=== PATIENT | female | born 1995 | race Caucasian/White ===

== ENCOUNTER 2017-04-17 15:48 | Outpatient (CLI) | payer OTHER ==
[~2017-04-17] VITALS: Ht 154.9 cm; Wt 54.5 kg
[~2017-04-17 15:48] MED LIST: AC325T PO; DEXT10TA9 PO; DICY20TA57 PO; DOXY100C2 PO; INDO25CA PO; PREN1TAB86 PO
[2017-04-17 16:24] VITALS: BP 104/63
[2017-04-17] MEDS ORDERED: LACTATED RINGERS 1,000 ML IV SCH (16:30)
[2017-04-17 17:30] VITALS: BP 104/63
[2017-04-17] MEDS ORDERED: D5 LR IV SOLUTION 1,000 ML IV SCH (18:15)
[2017-04-17] MEDS ORDERED: ONDANSETRON 4 MG/2 ML (SDV) Z0FRAN IVP ONE (18:15)
[2017-04-17] MEDS ORDERED: diphenhydrAMINE 50 MG/ML INJ (BENADRYL) IVP ONE (18:15)
[2017-04-17] MEDS ORDERED: ONDANSETRON 4 MG/2 ML (SDV) Z0FRAN IV ONE (18:37)
[2017-04-17] MEDS ORDERED: diphenhydrAMINE 50 MG/ML INJ (BENADRYL) INJ ONE (18:37)
[2017-04-17 19:11] VITALS: BP 104/63
[2017-04-17 20:15] VITALS: BP 98/52
[2017-06-30] MEDS ORDERED: CEPH-507 PO (07:19)
== END 2017-04-17 22:45 | disposition home or self-care (01) ==
LOC: LDRP 15:48 → WSo 15:48 → SDC 15:48 → WSo 22:45 → SDC 22:45 → EDSTATUS 05-08 13:58
PROVIDERS: ATTEND Obstetrics & Gynecology Obstetrics
DX: O21.0 Mild hyperemesis gravidarum (principal)
CPT/HCPCS: 96361; 96374; 96375

== ENCOUNTER 2017-05-18 22:10 | Emergency (ER) | payer OTHER ==
--- OUTSIDE RECORDS SUMMARY | 2017-05-18 22:16 | XMS REPORT | Continuity of Care Document ---
Author Author [facility] Organization [facility] Address Unknown Phone Unavailable Allergies Active Description Code Type Severity Reaction Onset Reported/Identified Relationship to Patient Clinical Status Yes FOSPHENYTOIN FOSPHENYTOIN Drug Allergy Unknown ITCHING 04/01/2004 Yes fosphenytoin fosphenytoin Drug Allergy Unknown N/A 04/01/2004 Yes NO KNOW CONTRAST MEDIA ALLERGY NO KNOW CONTRAST MEDIA ALLERGY Drug Allergy Unknown N/A 2003 Yes No Known Contrast Allergies No Known Contrast Allergies Drug Allergy Unknown N/A 04/01/2004 Yes No Known Food Allergies No Known Food Allergies Drug Allergy Unknown N/A 04/01/2004 Yes NO KNOWN LATEX ALLERGY/SENSITI NO KNOWN LATEX ALLERGY/SENSITI Drug Allergy Unknown N/A 2003 Yes No Known Other Allergies No Known Other Allergies Drug Allergy Unknown N/A 04/01/2004 Yes phenytoin [id number] Drug Allergy Severe ANAPHYLAXIS 03/12/2014 Yes promethazine [id number] Drug Allergy Moderate N/A 03/12/2014 Medications Problems Date Dx Coded Attending Type Code Diagnosis Diagnosed By 03/12/2014 SIS FORMAN, NICOL [place] Ot 682.0 05/29/2014 NICOL ALEGRE MD Ot 789.01 02/25/2015 MARIYA EAST APRN Ot 625.3 DYSMENORRHEA 02/25/2015 MARIYA EAST APRN Ot 789.00 ABDOMINAL PAIN, UNSPECIFIED SITE 03/14/2015 ROMARIO ONOFRE MD Ot 719.46 03/14/2015 ROMARIO ONOFRE MD Ot V57.1 03/15/2015 ROMARIO ONOFRE MD Ot 719.46 03/15/2015 ROMARIO ONOFRE MD Ot V57.1 03/15/2015 ROMARIO ONOFRE MD Ot 719.46 03/15/2015 ROMARIO ONOFRE MD Ot V57.1 03/15/2015 ROMARIO ONOFRE MD Ot 719.46 03/15/2015 KINGSTON FORMAN, ROMARIO [place] Ot V57.1 03/15/2015 KINGSTON FORMAN, ROMARIO [place] Ot 719.46 03/15/2015 KINGSTON FORMAN, ROMARIO [place] Ot V57.1 03/15/2015 KINGSTON FORMAN, ROMARIO [place] Ot 719.46 03/15/2015 KINGSTON FORMAN, ROMARIO [place] Ot V57.1 03/16/2015 KINGSTON FORMAN, ROMARIO [place] Ot 719.46 03/16/2015 KINGSTON FORMAN, ROMARIO [place] Ot V57.1 03/16/2015 KINGSTON FORMAN, ROMARIO [place] Ot 719.46 03/16/2015 KINGSTON FORMAN, ROMARIO [place] Ot V57.1 04/04/2015 KINGSTON FORMAN, ROMARIO [place] Ot 719.46 JOINT PAIN-L/LEG 04/04/2015 KINGSTON FORMAN, ROMARIO [place] Ot V57.1 PHYSICAL THERAPY NEC 02/10/2016 DAVID BRONSON DO Ot B37.3 CANDIDIASIS OF VULVA AND VAGINA 02/10/2016 DAVID BRONSON DO Ot O23.592 INFECTION OTH PRT GENITL TRCT IN PREGNAN 02/10/2016 DAVID BRONSON DO Ot O60.02 LABOR WITHOUT DELIVERY, SECOND T 02/10/2016 DAVID BRONSON DO Ot Z3A.24 24 WEEKS GESTATION OF 06/19/2016 Annika FORMAN, [place] R56.9 UNSPECIFIED CONVULSIONS 06/20/2016 [place] MD R56.9 UNSPECIFIED CONVULSIONS 06/20/2016 [place] MD A R56.9 UNSPECIFIED CONVULSIONS Procedures Results Encounters ACCT No. Visit Date/Time Discharge Status Pt. Type Provider Facility Loc./Unit Complaint [id number] 04/17/2017 15:48:00 2016 22:45:00 DIS Outpatient OTHER, UNLISTED [facility] NAUSEA/VOMITING 10 WEEKS [id number] 02/09/2016 12:38:00 2015 13:29:00 DIS Inpatient DAVID BRONSON DO [facility] LDRP LABOR [id number] 03/19/2015 11:02:00 2014 12:20:00 DIS Outpatient KINGSTON FORMAN, ROMARIO [place] [facility] REHAB [id number] 02/25/2015 15:10:00 2014 16:37:00 DIS Emergency MARIYA EAST APRN [facility] ER ABD PAIN [id number] 05/29/2014 17:52:00 2013 19:35:00 DIS Emergency NICOL ALEGRE MD [facility] ER [id number] 03/11/2014 23:56:00 2013 00:35:00 DIS Emergency NICOL ALEGRE MD [facility] ER [id number] 06/20/2016 14:37:00 2015 14:37:00 DIS Outpatient Annika FORMAN, [place] [facility] EDIE
--- OUTSIDE RECORDS SUMMARY | 2017-05-18 22:16 | XMS REPORT | Continuity of Care Document ---
Author Author [facility] Address Unknown Phone Unavailable Support Name Relationship Address Phone MICHAEL CRUZ M.D. Caregiver [address] [place] [address] Unavailable MICHAEL CRUZ M.D. Caregiver [address] [place] [address] Unavailable YASMIN ALFORD Next Of Kin [address] [place] [address] Insurance Providers Guarantor Jaron Segovia Address [address] [place] [address] [facility] Policy Number [id number] Subscriber's Name Simon Segovia Relationship 03 Father Group Number [id number] Group Name [facility] Problems No problem information available. Medications Current Home Medications Medication Dose Units Route Directions Days Qty Instructions Start Date Vit W/ Ferrous Fumara () 1 Tab Tab 1 Tab Oral Daily 02/15/16 Social History No social history. Hospital Discharge Instructions Discharge Instructions Nursing Instructions Follow up Appointment #1 Call for Appointment: Yes Other Activity: Limit physical activity. Plan of Care Discharge Date 02/15/16 2:03am Disposition 01 HOME, SELF-CARE Instructions/Education Provided OBG Threatened Labor Prescriptions See Medication Section Care Plan and Goals See Discharge Instructions Section Functional Status No functional status results. Allergies, Adverse Reactions, Alerts No allergy information available. Immunizations No immunization records. Vital Signs Acute Vital Signs Vital Response Date/Time Blood Pressure 120/66 mm Hg 02/15/2016 12:22am Blood Pressure Mean 84 mm Hg 02/15/2016 12:22am Temperature (Fahrenheit) 98.2 degrees F (96.0 - 99.9) 02/15/2016 12:22am Temperature (Calculated Celsius) 36.54363 degrees C 02/15/2016 12:22am Temperature Source Oral 02/15/2016 12:22am Pulse Pulse Rate: ED 86 bpm 02/15/2016 12:22am Respiratory Rate 18 breaths per minute (10 - 20) 02/15/2016 12:22am Results Laboratory Results Test Name Result Units Flags Reference Collection Date/Time Result Date/ Time Comments Urine Color YELLOW 02/15/2016 12:50am 02/15/2016 1:35am Urine Appearance HAZY 02/15/2016 12:50am 02/15/2016 1:35am Urine Glucose (UA) NEGATIVE NEGATIVE 02/15/2016 12:50am 02/15/2016 1: 35am Urine Bilirubin NEGATIVE NEGATIVE 02/15/2016 12:50am 02/15/2016 1: 35am Urine Ketones NEGATIVE NEGATIVE 02/15/2016 12:50am 02/15/2016 1:35am Urine Specific [place] 1.010 1.005-1.030 02/15/2016 12:50am 2015 1:35am Urine Occult Blood NEGATIVE NEGATIVE 02/15/2016 12:50am 02/15/2016 1: 35am Urine pH 7.5 4.5-8.0 02/15/2016 12:50am 02/15/2016 1:35am Urine Protein NEGATIVE NEGATIVE 02/15/2016 12:50am 02/15/2016 1:35am Urine Urobilinogen 0.2 E.U./dL 0.2-1.0 02/15/2016 12:50am 02/15/2016 1: 35am Urine Nitrate NEGATIVE NEGATIVE 02/15/2016 12:50am 02/15/2016 1:35am Urine Leukocyte Esterase NEGATIVE NEGATIVE 02/15/2016 12:50am 2015 1:35am Urine RBC NONE /hpf NONE 02/15/2016 12:50am 02/15/2016 1:35am Urine WBC 1-3 /hpf NONE 02/15/2016 12:50am 02/15/2016 1:35am Urine Epithelial Cells MANY /lpf 02/15/2016 12:50am 02/15/2016 1: 35am Urine Bacteria 1+ /hpf H NONE 02/15/2016 12:50am 02/15/2016 1:35am Urine Amorphous Sediment 1+ 02/15/2016 12:50am 02/15/2016 1:35am Procedures No known history of procedures. Encounters Encounter Location Arrival/Admit Date Discharge/Depart Date Attending Provider Discharged Inpatient (obs) [facility] 02/15/16 12:26am 03/25 2:03am MICHAEL CRUZ M.D. Registered Referred [facility] L[facility] 05/23/13 1:39pm LA GRANADOS MD
[2017-05-18 23:44] VITALS: BP 0/0
== END 2017-05-18 23:30 | disposition home or self-care (01) ==
LOC: EDUNIT# 22:10 → ER 22:11
DX: O20.9 Hemorrhage in early pregnancy, unspecified (principal); Z3A.15 15 weeks gestation of pregnancy
CPT/HCPCS: 99281

== ENCOUNTER 2017-06-05 13:27 | Emergency (ER) | payer OTHER ==
[~2017-06-05] VITALS: Ht 154.9 cm; Wt 54.5 kg
[2017-06-05] MEDS ORDERED: NS IV 1000 ML 1,000 ML IV SCH (13:45)
[2017-06-05 13:56] LABS: BASOPHILS % (AUTO) 0 % (0-10); EOSINOPHILS # (AUTO) 0.1 10^3/uL (0.0-0.3); EOSINOPHILS % (AUTO) 1 % (0-10); LYMPHOCYTES # (AUTO) 1.8 X 10^3 (1.0-4.0); LYMPHOCYTES % (AUTO) 17 % (12-44); MEAN CORPUSCULAR HEMOGLOBIN 29 PG (25-34); MEAN CORPUSCULAR HGB CONC 34 G/DL (32-36); MEAN CORPUSCULAR VOLUME 85 FL (80-99); MEAN PLATELET VOLUME 9.2 FL (7.4-10.4); MONOCYTES # (AUTO) 0.8 X 10^3 (0.0-1.0); MONOCYTES % (AUTO) 8 % (0-12); NEUTROPHILS # (AUTO) 8.4 X 10^3 (1.8-7.8); NEUTROPHILS % (AUTO) 75 % (42-75); PLATELET COUNT 259 10^3/uL (130-400); RED BLOOD COUNT 3.85 10^6/uL (4.35-5.85); RED CELL DISTRIBUTION WIDTH 13.2 % (10.0-14.5); WHITE BLOOD COUNT 11.2 10^3/uL (4.3-11.0)
[2017-06-05 13:57] LABS: BILIRUBIN,URINE NEGATIVE (NEGATIVE); KETONES,URINE NEGATIVE (NEGATIVE); LEUKOCYTE ESTERASE ,URINE 3+ (NEGATIVE); NITRITE,URINE NEGATIVE (NEGATIVE); PH,URINE 6.5 (5-9); PROTEIN,URINE NEGATIVE (NEGATIVE); UROBILINOGEN,URINE NORMAL (NORMAL)
[2017-06-05 14:05] LABS: SQUAMOUS EPITHELIAL CELL,UR TNTC /HPF
[2017-06-05 14:11] LABS: INR 0.9 (0.8-1.4); PROTHROMBIN TIME PATIENT 12.7 SEC (12.2-14.7)
[2017-06-05 14:15] LABS: ALANINE AMINOTRANSFERASE 9 U/L (0-55); ALBUMIN 3.4 GM/DL (3.2-4.5); ANION GAP 6 MMOL/L (5-14); ASPARTATE AMINO TRANSFERASE 15 U/L (5-34); BILIRUBIN,TOTAL 0.3 MG/DL (0.1-1.0); BLOOD UREA NITROGEN 6 MG/DL (7-18); BUN/CREATININE RATIO 10; CALCIUM 8.5 MG/DL (8.5-10.1); CARBON DIOXIDE 22 MMOL/L (21-32); CHLORIDE 107 MMOL/L (98-107); CREATININE SERUM 0.59 MG/DL (0.60-1.30); GFR ESTIMATED > 60; GLUCOSE 101 MG/DL (70-105); MAGNESIUM 1.5 MG/DL (1.8-2.4); POTASSIUM 3.4 MMOL/L (3.6-5.0); SODIUM 135 MMOL/L (135-145); TOTAL PROTEIN 6.2 GM/DL (6.4-8.2)
[2017-06-05] MEDS ORDERED: hydrOXYzine (ATARAX) 10 MG TAB PO ONE (14:15)
[2017-06-05 14:22] LABS: MYOGLOBIN SERUM 16.3 NG/ML (10.0-92.0)
--- NOTE | 2017-06-05 15:55 | Diagnostic Imaging Report ---
INDICATION: Shortness of breath. EXAMINATION: Portable erect AP chest at 3:26 p.m. FINDINGS: The heart size is within normal limits and stable when compared to 07/09/09. The lungs are clear. There is no sign of pneumonia or a pleural effusion and there is no pneumothorax identified. The mediastinum is not widened. The osseous structures are intact. IMPRESSION: There is no evidence for active disease. Dictated by: Dictated on workstation # [id number]
--- NOTE | 2017-06-05 15:55 | ED Dyspnea ---
General Chief Complaint: Respiratory Problems Stated Complaint: sob/murmur/18 WKS Nursing Triage Note: States that she has been having soa since yesrday. has not been ill. states her chest feels like there is helium in it. yesterday she was able to feel better with water . is 18 weeks Source of Information: Patient, Family Exam Limitations: No Limitations History of Present Illness Time Seen by Provider: 13:30 Initial Comments This 21-year-old white female in her 18th week presents with palpitations and shortness of breath. The patient states that she has had a life long heart murmur that has not required intervention. She states that she suffers from chronic depression and anxiety. She states that she is not taking her Zoloft currently and is not using medication specifically for anxiety. The patient's first was made notable by having gestational diabetes. She is under the care of Dr. Winters. Her previous ultrasounds in the office of the have been unremarkable. The patient denies pelvic contractions or vaginal bleeding. Allergies and Home Medications Allergies Coded Allergies: phenytoin (Unverified Allergy, Severe, ANAPHYLAXIS, 03/12/14) promethazine (Unverified Allergy, Intermediate, 03/12/14) Home Medications Vit W-Ca,Fe,FA(<1 mg) 1 Each Tablet, 1 EACH PO DAILY, (Reported) Constitutional: No chills, No fever EENTM: No hearing loss Respiratory: No cough, short of breath Cardiovascular: No chest pain, palpitations Gastrointestinal: No abdominal pain, No nausea, No vomiting Musculoskeletal: no symptoms reported Skin: no symptoms reported Psychiatric/Neurological: No Symptoms Reported Endocrine: No Symptoms Reported Hematologic/Lymphatic: No Symptoms Reported Past Odvusze-Gsxgej-Brduii Hx Patient Social History Alcohol Use: Denies Use Recreational Drug Use: No Smoking Status: Never a Smoker 2nd Hand Smoke Exposure: No Recent Foreign Travel: No Contact w/Someone Who Travel: No Recent Infectious Disease Expo: No Recent Hopitalizations: No Physical Abuse: No Sexual Abuse: No Mistreated: No Fear: No Immunizations Up To Date Tetanus Booster (TDap): Less than 5yrs Seasonal Allergies Seasonal Allergies: No Surgeries History of Surgeries: Yes Surgeries: Adenoidectomy, Gallbladder, Tonsillectomy Respiratory History of Respiratory Disorde: No Cardiovascular History of Cardiac Disorders: Yes Cardiac Disorders: Palpitations Neurological History of Neurological Disord: Yes (HX SEIZURES as child) Reproductive System Hx Reproductive Disorders: No Sexually Transmitted Disease: No HIV/AIDS: No Gastrointestinal History of Gastrointestinal Di: Yes Gastrointestinal Disorders: Gall Bladder Disease Musculoskeletal History of Musculoskeletal Dis: No Endocrine History of Endocrine Disorders: No Cancer History of Cancer: No Psychosocial History of Psychiatric Problem: Yes Behavioral Health Disorders: ADD/ADHD, Anxiety, Depression Suicide Risk Score: 0 Integumentary History of Skin or Integumenta: No Blood Transfusions History of Blood Disorders: No Reviewed Nursing Assessment Reviewed/Agree w Nursing PMH: Yes Physical Exam Vital Signs Vital Sign - Last 12Hours 06/05/17 13:37 Temp 96.6 Pulse 78 Resp 22 B/P (MAP) 123/63 Pulse Ox 99 Capillary Refill : Less Than 3 Seconds General Appearance: WD/WN, Anxious HEENT: TMs Normal Neck: Normal Inspection Respiratory: Lungs Clear, Normal Breath Sounds Cardiovascular: Regular Rate, Rhythm, No Edema, No Gallop Gastrointestinal: Normal Bowel Sounds, Other (patient's uterus is consistent with her dates with the fundus at the umbilicus.) Neurologic/Psychiatric: Alert, Oriented x3, No Motor/Sensory Deficits, Normal Mood/Affect Skin: Normal Color, Warm/Dry Progress/Results/Core Measures Results/Orders Lab Results Laboratory Tests Test 06/05/17 13:45 06/05/17 13:46 Range/Units Hemoglobin A1c 5.1 4.5-6.2 % White Blood Count 11.2 H 4.3-11.0 10^3/uL Red Blood Count 3.85 L 4.35-5.85 10^6/uL Hemoglobin 11.2 L 11.5-16.0 G/DL Hematocrit 33 L 35-52 % Mean Corpuscular Volume 85 80-99 FL Mean Corpuscular Hemoglobin 29 25-34 PG Mean Corpuscular Hemoglobin Concent 34 32-36 G/DL Red Cell Distribution Width 13.2 10.0-14.5 % Platelet Count 259 130-400 10^3/uL Mean Platelet Volume 9.2 7.4-10.4 FL Neutrophils (%) (Auto) 75 42-75 % Lymphocytes (%) (Auto) 17 12-44 % Monocytes (%) (Auto) 8 0-12 % Eosinophils (%) (Auto) 1 0-10 % Basophils (%) (Auto) 0 0-10 % Neutrophils # (Auto) 8.4 H 1.8-7.8 X 10^3 Lymphocytes # (Auto) 1.8 1.0-4.0 X 10^3 Monocytes # (Auto) 0.8 0.0-1.0 X 10^3 Eosinophils # (Auto) 0.1 0.0-0.3 10^3/uL Basophils # (Auto) 0.0 0.0-0.1 10^3/uL Prothrombin Time 12.7 12.2-14.7 SEC INR Comment 0.9 0.8-1.4 Activated Partial Thromboplast Time 26 24-35 SEC Urine Color YELLOW Urine Clarity SLIGHTLY CLOUDY Urine pH 6.5 5-9 Urine Specific [place] 1.020 1.016-1.022 Urine Protein NEGATIVE NEGATIVE Urine Glucose (UA) NEGATIVE NEGATIVE Urine Ketones NEGATIVE NEGATIVE Urine Nitrite NEGATIVE NEGATIVE Urine Bilirubin NEGATIVE NEGATIVE Urine Urobilinogen NORMAL NORMAL MG/DL Urine Leukocyte Esterase 3+ H NEGATIVE Urine RBC (Auto) 1+ H NEGATIVE Urine RBC 0-2 /HPF Urine WBC 5-10 H /HPF Urine Squamous Epithelial Cells TNTC H /HPF Urine Crystals NONE /LPF Urine Bacteria FEW H /HPF Urine Casts NONE /LPF Urine Mucus NEGATIVE /LPF Urine Culture Indicated NO Sodium Level 135 135-145 MMOL/L Potassium Level 3.4 L 3.6-5.0 MMOL/L Chloride Level 107 98-107 MMOL/L Carbon Dioxide Level 22 21-32 MMOL/L Anion Gap 6 5-14 MMOL/L Blood Urea Nitrogen 6 L 7-18 MG/DL Creatinine 0.59 L 0.60-1.30 MG/DL Estimat Glomerular Filtration Rate > 60 BUN/Creatinine Ratio 10 Glucose Level 101 70-105 MG/DL Calcium Level 8.5 8.5-10.1 MG/DL Magnesium Level 1.5 L 1.8-2.4 MG/DL Total Bilirubin 0.3 0.1-1.0 MG/DL Aspartate Amino Transf (AST/SGOT) 15 5-34 U/L Alanine Aminotransferase (ALT/SGPT) 9 0-55 U/L Alkaline Phosphatase 60 40-136 U/L Myoglobin 16.3 10.0-92.0 NG/ML Troponin I < 0.30 <0.30 NG/ML Total Protein 6.2 L 6.4-8.2 GM/DL Albumin 3.4 3.2-4.5 GM/DL My Orders Orders - JOCY AGRAWAL MD Cbc With Automated Diff (06/05/17 13:41) Magnesium (06/05/17 13:41) Chest 1 View, Ap/Pa Only (06/05/17 13:41) Ekg Tracing (06/05/17 13:41) Cardiac Profile 1 (06/05/17 13:41) Comprehensive Metabolic Panel (06/05/17 13:41) Myoglobin Serum (06/05/17 13:41) Protime With Inr (06/05/17 13:41) Partial Thromboplastin Time (06/05/17 13:41) Lipid Panel (06/06/17 06:00) Saline Lock/Iv-Start (06/05/17 13:41) Ns Iv 1000 Ml (Sodium Chloride 0.9%) (06/05/17 13:45) Ua Culture If Indicated (06/05/17 13:41) Heart Tones (06/05/17 13:50) Hemoglobin A1c (06/05/17 13:53) Hydroxyzine Oral (Atarax Tablet) (06/05/17 14:15) Medications Given in ED Current Medications Medications Dose Ordered Sig/Brice Route Start Time Stop Time Status Last Admin Dose Admin Hydroxyzine HCl 10 mg ONCE ONCE PO 06/05/17 14:15 06/05/17 14:16 DC 06/05/17 14:28 10 MG Vital Signs/I&O Vital Sign - Last 12Hours 06/05/17 13:37 Temp 96.6 Pulse 78 Resp 22 B/P (MAP) 123/63 Pulse Ox 99 Intake and Output 06/06/17 00:00 Intake Total 1000 ml Balance 1000 ml Blood Pressure Mean: 83 Progress Note : Time: 16:15 Progress Note The patient's anxiety was significantly improved with Atarax which was suggested by her diagnostic radiologist, Dr. Winters. The patient's EKG, shielded single view chest x-ray, and laboratory evaluation was essentially unremarkable. Patient's potassium and magnesium were both slightly low. Next A bedside abdominal ultrasound demonstrated a viable intrauterine . A quick review of the hearts with the ultrasound demonstrated a normal-sized heart without evidence of pericardial fluid and functional valves on exam. I reassured the patient's. I recommend she follow up with Dr. Lafleur, cardiology. I returned to the care of her registered phlebotomist part time, Dr. Winters. Departure Impression Impression: Primary Impression: Palpitations Additional Impressions: Intrauterine Anxiety Disposition: HOME, SELF-CARE Condition: Improved Departure-Patient Inst. Decision time for Depature: 16:19 Referrals: GEOFF WINTERS MD (PCP) Primary Care Physician [facility] (Family) Primary Care Physician DANIELA LAFLEUR MD Patient Instructions: Anxiety, Child (DC) Add. Discharge Instructions: Atarax for anxiety. Follow-up with cardiology. Follow-up with OB. Return if any problems or questions. All discharge instructions reviewed with patient and /or family. Voiced understanding. JOCY AGRAWAL MD Jun 05, 2017 15:55
[2017-06-05 16:28] VITALS: BP 109/58
== END 2017-06-05 16:28 | disposition home or self-care (01) ==
LOC: EDUNIT# 13:27 → ER 13:30
DX: O99.342 Other mental disorders complicating pregnancy, second trimester (principal); F41.9 Anxiety disorder, unspecified; F32.9 Major depressive disorder, single episode, unspecified; F90.9 Attention-deficit hyperactivity disorder, unspecified type; Z87.448 Personal history of other diseases of urinary system; Z90.89 Acquired absence of other organs; Z3A.18 18 weeks gestation of pregnancy
CPT/HCPCS: 36415; 71010; 80053; 81000; 83036; 83735; 83874; 84484; 85025; 85610; 85730; 93005

== ENCOUNTER 2017-08-24 11:50 | Outpatient (CLI) | payer OTHER ==
[~2017-08-24 11:50] MED LIST changes: +CEPH-507 PO
== END 2017-08-24 12:30 | disposition home or self-care (01) ==
LOC: WSo 11:50
PROVIDERS: ATTEND Obstetrics & Gynecology
DX: Z31.82 Encounter for Rh incompatibility status (principal)
CPT/HCPCS: 96372

== ENCOUNTER 2017-09-22 16:55 | Outpatient (CLI) | payer OTHER ==
[~2017-09-22] VITALS: Ht 152.4 cm; Wt 68.5 kg
[2017-09-22 17:02] VITALS: BP 119/69
[2017-09-22 17:32] VITALS: BP 117/60
[2017-09-22 18:02] VITALS: BP 122/64
[2017-09-22 18:38] LABS: BASOPHILS % (AUTO) 0 % (0-10); EOSINOPHILS # (AUTO) 0.2 10^3/uL (0.0-0.3); EOSINOPHILS % (AUTO) 1 % (0-10); HEMATOCRIT 30 % (35-52); HEMOGLOBIN 9.9 G/DL (11.5-16.0); LYMPHOCYTES # (AUTO) 1.9 X 10^3 (1.0-4.0); LYMPHOCYTES % (AUTO) 13 % (12-44); MEAN CORPUSCULAR HEMOGLOBIN 28 PG (25-34); MEAN CORPUSCULAR HGB CONC 33 G/DL (32-36); MEAN CORPUSCULAR VOLUME 83 FL (80-99); MEAN PLATELET VOLUME 9.4 FL (7.4-10.4); MONOCYTES # (AUTO) 1.8 X 10^3 (0.0-1.0); MONOCYTES % (AUTO) 12 % (0-12); NEUTROPHILS # (AUTO) 10.6 X 10^3 (1.8-7.8); NEUTROPHILS % (AUTO) 73 % (42-75); PLATELET COUNT 256 10^3/uL (130-400); RED BLOOD COUNT 3.58 10^6/uL (4.35-5.85); RED CELL DISTRIBUTION WIDTH 12.4 % (10.0-14.5); WHITE BLOOD COUNT 14.5 10^3/uL (4.3-11.0)
[2017-09-22 18:56] LABS: BAND NEUTROPHILS 1 %; BASOPHILS % (MANUAL) 0 %; EOSINOPHILS % (MANUAL) 1 %; HYPOCHROMASIA SLIGHT; LYMPHOCYTES % (MANUAL) 22 %; MONOCYTES % (MANUAL) 5 %; NEUTROPHILS % (MANUAL) 71 %
[2017-09-22 19:10] VITALS: BP 122/64
--- NOTE | 2017-09-24 09:11 | Physician Query-Final Dx ---
DILLON SIMENTAL 09/24/17 0911: Clinic Account Progress/Dx Physician Query: Please give diagnosis Date of Service Sep 22, 2017 at 16:55 GEOFF CANNON MD 09/24/17 1723: Clinic Account Progress/Dx DIAGNOSIS: Diagnosis false labor DILLON SIMENTAL Sep 24, 2017 09:11 GEOFF CANNON MD Sep 24, 2017 17:23
== END 2017-09-22 19:10 | disposition home or self-care (01) ==
LOC: WSo 16:55 → LDRP 16:56 → WSo 19:10
PROVIDERS: ATTEND Obstetrics & Gynecology
DX: O47.03 False labor before 37 completed weeks of gestation, third trimester (principal); Z3A.32 32 weeks gestation of pregnancy
CPT/HCPCS: 36415; 85007; 85027; 99214

== ENCOUNTER 2017-09-25 20:41 | Outpatient (CLI) | payer OTHER ==
[~2017-09-25] VITALS: Ht 152.4 cm; Wt 69.9 kg
[2017-09-25 20:59] LABS: BILIRUBIN,URINE NEGATIVE (NEGATIVE); CLARITY,URINE CLEAR; COLOR,URINE YELLOW; GLUCOSE, URINE (UA) NEGATIVE (NEGATIVE); KETONES,URINE NEGATIVE (NEGATIVE); LEUKOCYTE ESTERASE ,URINE 3+ (NEGATIVE); NITRITE,URINE NEGATIVE (NEGATIVE); PH,URINE 7 (5-9); PROTEIN,URINE NEGATIVE (NEGATIVE); UROBILINOGEN,URINE NORMAL (NORMAL)
[2017-09-25 21:00] VITALS: BP 124/59
[2017-09-25 21:06] LABS: BACTERIA,URINE TRACE /HPF
[2017-09-25] MEDS ORDERED: D5 LR IV SOLUTION 1,000 ML IV ONE (21:14)
[2017-09-25 21:30] VITALS: BP 123/59
[2017-09-25] MEDS ORDERED: D5 LR IV SOLUTION 1,000 ML IV SCH (21:30)
[2017-09-25 21:43] LABS: BILIRUBIN,URINE NEGATIVE (NEGATIVE); CLARITY,URINE CLEAR; COLOR,URINE YELLOW; GLUCOSE, URINE (UA) NEGATIVE (NEGATIVE); KETONES,URINE NEGATIVE (NEGATIVE); LEUKOCYTE ESTERASE ,URINE NEGATIVE (NEGATIVE); NITRITE,URINE NEGATIVE (NEGATIVE); PH,URINE 7 (5-9); PROTEIN,URINE NEGATIVE (NEGATIVE); UROBILINOGEN,URINE NORMAL (NORMAL)
[2017-09-25 21:53] LABS: BACTERIA,URINE NEGATIVE /HPF; SQUAMOUS EPITHELIAL CELL,UR 0-2 /HPF; WBC,URINE RARE /HPF
[2017-09-25 22:00] VITALS: BP 117/66
[2017-09-25 22:30] VITALS: BP 123/62
[2017-09-25 22:36] VITALS: BP 117/56
--- NOTE | 2017-09-28 15:42 | Physician Query-Final Dx ---
DILLON SIMENTAL 09/28/17 1542: Clinic Account Progress/Dx Physician Query: Please give diagnosis Date of Service Sep 25, 2017 at 20:41 GEOFF CANNON MD 09/30/17 0611: Clinic Account Progress/Dx DIAGNOSIS: Diagnosis False labor DILLON SIMENTAL Sep 28, 2017 15:42 GEOFF CANNON MD Sep 30, 2017 06:11
[2017-10-01] MEDS ORDERED: NITR-65 PO ×2 (07:54)
[2017-10-01] MEDS ORDERED: ONDA8TAB9 PO (07:54)
== END 2017-09-25 22:50 | disposition home or self-care (01) ==
LOC: WSo 20:41 → LDRP 20:41 → WSo 22:50
PROVIDERS: ATTEND Obstetrics & Gynecology
DX: O47.03 False labor before 37 completed weeks of gestation, third trimester (principal); Z3A.33 33 weeks gestation of pregnancy
CPT/HCPCS: 81000; 87088; 96360; 99214

== ENCOUNTER 2017-09-30 16:25 | Observation (INO) | payer OTHER ==
[~2017-09-30] VITALS: Ht 152.4 cm; Wt 68.5 kg
[2017-09-30 16:40] VITALS: BP 118/71
[2017-09-30] MEDS ORDERED: ONDANSETRON 4 MG/2 ML (SDV) Z0FRAN ONE (17:04)
[2017-09-30] MEDS ORDERED: D5 LR IV SOLUTION 1,000 ML IV ONE (17:15)
[2017-09-30] MEDS ORDERED: ONDANSETRON 4 MG/2 ML (SDV) Z0FRAN IVP ONE (17:15)
[2017-09-30 17:35] LABS: BILIRUBIN,URINE NEGATIVE (NEGATIVE); CLARITY,URINE CLEAR; COLOR,URINE YELLOW; GLUCOSE, URINE (UA) NEGATIVE (NEGATIVE); KETONES,URINE 3+ (NEGATIVE); LEUKOCYTE ESTERASE ,URINE 1+ (NEGATIVE); NITRITE,URINE NEGATIVE (NEGATIVE); PH,URINE 6.5 (5-9); PROTEIN,URINE 2+ (NEGATIVE); UROBILINOGEN,URINE NORMAL (NORMAL)
[2017-09-30 17:40] VITALS: BP 110/55
[2017-09-30 17:43] LABS: BACTERIA,URINE FEW /HPF
[2017-09-30] MEDS ORDERED: INFLUENZA TRIvalent 2017-2018 0.5 ML/45 MCG SYR IM ONE (18:30)
[2017-09-30] MEDS ORDERED: NS (IVPB) 50 ML ONE (19:20)
[2017-09-30] MEDS ORDERED: ceFAZolin 1,000 MG (ANCEF) VIAL ONE (19:20)
[2017-09-30] MEDS: D5 LR IV SOLUTION 1,000 ML IV SCH (19:26)
[2017-09-30] MEDS: ceFAZolin INJECTION 1,000 MG in NS (IVPB) 50 ML IV SCH (19:26)
[2017-09-30 19:30] VITALS: BP 115/59
[2017-09-30] MEDS ORDERED: BUTORPHANOL INJ 2 MG/ML (STADOL) VIAL IV ONE (19:30)
[2017-09-30] MEDS ORDERED: CATHETER FLUSH 10 ML SYR IV PRN (19:30)
--- OUTSIDE RECORDS SUMMARY | 2017-09-30 19:38 | XMS REPORT | Continuity of Care Document ---
Author Author [facility] Organization [facility] Address Unknown Phone Unavailable Allergies Active Description Code Type Severity Reaction Onset Reported/Identified Relationship to Patient Clinical Status Yes FOSPHENYTOIN FOSPHENYTOIN Drug Allergy Unknown ITCHING 04/01/2004 Yes fosphenytoin fosphenytoin Drug Allergy Unknown N/A 04/01/2004 Yes NO KNOW CONTRAST MEDIA ALLERGY NO KNOW CONTRAST MEDIA ALLERGY Drug Allergy Unknown N/A 04/01/2004 Yes No Known Contrast Allergies No Known Contrast Allergies Drug Allergy Unknown N/A 04/01/2004 Yes No Known Food Allergies No Known Food Allergies Drug Allergy Unknown N/A Yes NO KNOWN LATEX ALLERGY/SENSITI NO KNOWN LATEX ALLERGY /SENSITI Drug Allergy Unknown N/A 04/01/2004 Yes No Known Other Allergies No Known Other Allergies Drug Allergy Unknown N/A 04/01/2004 Yes phenytoin [id number] Drug Allergy Severe ANAPHYLAXIS 03/12/2014 Yes promethazine [id number] Drug Allergy Moderate N/A 03/12/2014 Medications There is no data. Problems Date Dx Coded Attending Type Code Diagnosis Diagnosed By 03/12/2014 SIS FROMAN, NICOL Kimball Ot 682.0 05/29/2014 SIS FORMAN, NICOL Kimball Ot 789.01 02/25/2015 MARIYA EAST [employer]PL[employer] NAVIGATOR Ot 625.3 DYSMENORRHEA 02/25/2015 MARIYA E[employer] NAVIGATOR Ot 789.00 ABDOMINAL PAIN, UNSPECIFIED SITE 03/14/2015 ROMARIO ONOFRE MD Ot 719.46 03/14/2015 ROMARIO ONOFRE MD Ot V57.1 03/15/2015 ROMARIO ONOFRE MD Ot 719.46 03/15/2015 ROMARIO ONOFRE MD Ot V57.1 03/15/2015 ROMARIO ONOFRE MD Ot 719.46 03/15/2015 ROMARIO ONOFRE MD Ot V57.1 03/15/2015 ROMARIO ONOFRE MD N Ot 719.46 03/15/2015 KINGSTON FORMAN, ROMARIO [place] Ot V57.1 03/15/2015 KINGSTON FORMAN, ROMARIO [place] Ot 719.46 03/15/2015 KINGSTON FORMAN, ROMARIO [place] Ot V57.1 03/15/2015 KINGSTON FORMAN, ROMARIO [place] Ot 719.46 03/15/2015 KINGSTON FORMAN, ROMARIO [place] Ot V57.1 03/16/2015 KINGSTON FORMAN, ROMARIO [place] Ot 719.46 03/16/2015 KINGSTON FORMAN, ROMARIO [place] Ot V57.1 03/16/2015 KINGSTON FORMAN, ROMARIO [place] Ot 719.46 03/16/2015 KINGSTON FORMAN, ROMARIO [place] Ot V57.1 04/04/2015 KINGSTON FORMAN, ROMARIO [place] Ot 719.46 JOINT PAIN-L/LEG 04/04/2015 KINGSTON FROMAN, ROMARIO [place] Ot V57.1 PHYSICAL THERAPY NEC 02/10/2016 AUDIE JEWELL DAVID Arana Ot B37.3 CANDIDIASIS OF VULVA AND VAGINA 02/10/2016 AUDIE JEWELL DAVID Arana Ot O23.592 INFECTION OTH PRT GENITL TRCT IN PREGNAN 02/10/2016 DAVID BRONSON DO Ot O60.02 LABOR WITHOUT DELIVERY, SECOND T 02/10/2016 DAVID BRONSON DO Ot Z3A.24 24 WEEKS GESTATION OF 06/19/2016 Annika FORMAN, [place] U A R56.9 UNSPECIFIED CONVULSIONS 06/20/2016 Annika FORMAN, [place] U A R56.9 UNSPECIFIED CONVULSIONS 06/20/2016 [place] Rob[place] MD U A R56.9 UNSPECIFIED CONVULSIONS 04/17/2017 SARATH FORMAN, RUSLAN Ham Ot O21.0 MILD HYPEREMESIS GRAVIDARUM 05/08/2017 RUSLAN CLEMENS MD Ot O21.0 MILD HYPEREMESIS GRAVIDARUM 05/08/2017 RUSLAN CLEMENS MD Ot O21.0 MILD HYPEREMESIS GRAVIDARUM 05/14/2017 SARATH FORMAN, RUSLAN Ham Ot O21.0 MILD HYPEREMESIS GRAVIDARUM 05/18/2017 TERE FORMAN, JODIE Martinez Ot O20.9 HEMORRHAGE IN EARLY , UNSPECIFI 05/18/2017 JODIE CARRANZA MD Ot Z3A.15 15 WEEKS GESTATION OF 05/24/2017 JODIE CARRANZA MD Ot O20.9 HEMORRHAGE IN EARLY , UNSPECIFI 05/24/2017 JODIE CARRANZA MD Ot Z3A.15 15 WEEKS GESTATION OF 06/30/2017 GEOFF CANNON MD, Ot O26.892 OTH RELATED CONDITIONS, SECOND 06/30/2017 GEOFF CANNON MD, Ot R10.31 RIGHT LOWER QUADRANT PAIN 06/30/2017 GEOFF CANNON MD, Ot Z3A.20 20 WEEKS GESTATION OF 06/30/2017 GEOFF CANNON MD, Ot Z84.2 FAMILY HISTORY OF OTHER DISEASES OF THE 06/30/2017 GEOFF CANNON MD, Ot O26.892 OTRay RELATED CONDITIONS, SECOND 06/30/2017 GEOFF CANONN MD, Ot R10.31 RIGHT LOWER QUADRANT PAIN 06/30/2017 GEOFF CANNON MD, Ot Z3A.20 20 WEEKS GESTATION OF 06/30/2017 GEOFF CANNON MD, Ot Z84.2 FAMILY HISTORY OF OTHER DISEASES OF THE Procedures There is no data. Results Test Result Range Hemoglobin A1c - 06/05/17 13:45 Hemoglobin A1c 5.1 % 4.5-6.2 Complete blood count (CBC) with automated white blood cell (WBC) differential - 06/05/17 13:46 Blood leukocytes automated count (number/volume) 11.2 10*3/uL 4.3-11.0 Blood erythrocytes automated count (number/volume) 3.85 10*6/uL 4.35-5.85 Venous blood hemoglobin measurement (mass/volume) 11.2 g/dL 11.5-16.0 Blood hematocrit (volume fraction) 33 % 35-52 Automated erythrocyte mean corpuscular volume 85 [foz_us] 80-99 Automated erythrocyte mean corpuscular hemoglobin (mass per erythrocyte) 29 pg 25-34 Automated erythrocyte mean corpuscular hemoglobin concentration measurement ( mass/volume) 34 g/dL 32-36 Automated erythrocyte distribution width ratio 13.2 % 10.0-14.5 Automated blood platelet count (count/volume) 259 10*3/uL 130-400 Automated blood platelet mean volume measurement 9.2 [foz_us] 7.4-10.4 Automated blood neutrophils/100 leukocytes 75 % 42-75 Automated blood lymphocytes/100 leukocytes 17 % 12-44 Blood monocytes/100 leukocytes 8 % 0-12 Automated blood eosinophils/100 leukocytes 1 % 0-10 Automated blood basophils/100 leukocytes 0 % 0-10 Blood neutrophils automated count (number/volume) 8.4 10*3 1.8-7.8 Blood lymphocytes automated count (number/volume) 1.8 10*3 1.0-4.0 Blood monocytes automated count (number/volume) 0.8 10*3 0.0-1.0 Automated eosinophil count 0.1 10*3/uL 0.0-0.3 Automated blood basophil count (count/volume) 0.0 10*3/uL 0.0-0.1 Complete urinalysis with reflex to culture - 06/05/17 13:46 Urine color determination YELLOW NRG Urine clarity determination SLIGHTLY CLOUDY NRG Urine pH measurement by test strip 6.5 5-9 Specific gravity of urine by test strip 1.020 1.016- 1.022 Urine protein assay by test strip, semi-quantitative NEGATIVE NEGATIVE Urine glucose detection by automated test strip NEGATIVE NEGATIVE Erythrocytes detection in urine sediment by light microscopy 1+ NEGATIVE Urine ketones detection by automated test strip NEGATIVE NEGATIVE Urine nitrite detection by test strip NEGATIVE NEGATIVE Urine total bilirubin detection by test strip NEGATIVE NEGATIVE Urine urobilinogen measurement by automated test strip (mass/volume) NORMAL NORMAL Urine leukocyte esterase detection by dipstick 3+ NEGATIVE Automated urine sediment erythrocyte count by microscopy (number/high power field) [HPF] NRG Automated urine sediment leukocyte count by microscopy (number/high power field ) [HPF] NRG Bacteria detection in urine sediment by light microscopy FEW NRG Squamous epithelial cells detection in urine sediment by light microscopy TNTC NRG Crystals detection in urine sediment by light microscopy NONE NRG Casts detection in urine sediment by light microscopy NONE NRG Mucus detection in urine sediment by light microscopy NEGATIVE NRG Complete urinalysis with reflex to culture NO NRG PT panel in platelet poor plasma by coagulation assay - 06/05/17 13:46 Prothrombin time (PT) in platelet poor plasma by coagulation assay 12.7 s 12.2-14.7 INR in platelet poor plasma or blood by coagulation assay 0.9 0.8-1.4 Activated partial thromboplastin time (aPTT) in platelet poor plasma bycoagulation assay - 06/05/17 13:46 Activated partial thromboplastin time (aPTT) in platelet poor plasma bycoagulation assay 26 s 24-35 Comprehensive metabolic panel - 06/05/17 13:46 Serum or plasma sodium measurement (moles/volume) 135 mmol/L 135-145 Serum or plasma potassium measurement (moles/volume) 3.4 mmol/L 3.6-5.0 Serum or plasma chloride measurement (moles/volume) 107 mmol/L 98-107 Carbon dioxide 22 mmol/L 21-32 Serum or plasma anion gap determination (moles/volume) 6 mmol/L 5-14 Serum or plasma urea nitrogen measurement (mass/volume) 6 mg/dL 7-18 Serum or plasma creatinine measurement (mass/volume) 0.59 mg/dL 0.60-1.30 Serum or plasma urea nitrogen/creatinine mass ratio 10 NRG Serum or plasma creatinine measurement with calculation of estimated glomerular filtration rate > NRG Serum or plasma glucose measurement (mass/volume) 101 mg/dL 70-105 Serum or plasma calcium measurement (mass/volume) 8.5 mg/dL 8.5-10.1 Serum or plasma total bilirubin measurement (mass/volume) 0.3 mg/dL 0.1-1.0 Serum or plasma alkaline phosphatase measurement (enzymatic activity/volume) 60 U/L 40-136 Serum or plasma aspartate aminotransferase measurement (enzymatic activity/ volume) 15 U/L 5-34 Serum or plasma alanine aminotransferase measurement (enzymatic activity/volume ) 9 U/L 0-55 Serum or plasma protein measurement (mass/volume) 6.2 g/dL 6.4-8.2 Serum or plasma albumin measurement (mass/volume) 3.4 g/dL 3.2-4.5 Magnesium - 06/05/17 13:46 Magnesium 1.5 mg/dL 1.8-2.4 Serum or plasma troponin i.cardiac measurement (mass/volume) - 06/05/17 13:46 Serum or plasma troponin i.cardiac measurement (mass/volume) < ng/ mL <0.30 Myoglobin, serum - 06/05/17 13:46 Myoglobin, serum 16.3 ng/mL 10.0-92.0 Urine drug screening test - 06/28/17 19:45 Urine phencyclidine detection by screening method NEGATIVE NEGATIVE Urine benzodiazepines detection by screening method NEGATIVE NEGATIVE Urine cocaine detection NEGATIVE NEGATIVE Urine amphetamines detection by screening method NEGATIVE NEGATIVE Urine methamphetamine detection by screening method NEGATIVE NEGATIVE Urine cannabinoids detection by screening method NEGATIVE NEGATIVE Urine opiates detection by screening method NEGATIVE NEGATIVE Urine barbiturates detection NEGATIVE NEGATIVE Screening urine tricyclic antidepressants detection NEGATIVE NEGATIVE Urine methadone detection by screening method NEGATIVE NEGATIVE Urine oxycodone detection NEGATIVE NEGATIVE Urine propoxyphene detection NEGATIVE NEGATIVE Complete urinalysis with reflex to culture - 06/28/17 19:45 Urine color determination YELLOW NRG Urine clarity determination VERY CLOUDY NRG Urine pH measurement by test strip 7 5-9 Specific gravity of urine by test strip 1.020 1.016- 1.022 Urine protein assay by test strip, semi-quantitative 1+ NEGATIVE Urine glucose detection by automated test strip NEGATIVE NEGATIVE Erythrocytes detection in urine sediment by light microscopy 5+ NEGATIVE Urine ketones detection by automated test strip NEGATIVE NEGATIVE Urine nitrite detection by test strip NEGATIVE NEGATIVE Urine total bilirubin detection by test strip NEGATIVE NEGATIVE Urine urobilinogen measurement by automated test strip (mass/volume) NORMAL NORMAL Urine leukocyte esterase detection by dipstick 3+ NEGATIVE Automated urine sediment erythrocyte count by microscopy (number/high power field) > [HPF] NRG Automated urine sediment leukocyte count by microscopy (number/high power field ) [HPF] NRG Bacteria detection in urine sediment by light microscopy TRACE NRG Squamous epithelial cells detection in urine sediment by light microscopy >50 NRG Crystals detection in urine sediment by light microscopy NONE NRG Casts detection in urine sediment by light microscopy NONE NRG Mucus detection in urine sediment by light microscopy SMALL NRG Complete urinalysis with reflex to culture NO NRG Renal epithelial cells detection in urine sediment by light microscopy NONE NRG Bacterial urine culture - 06/28/17 19:45 Bacterial urine culture [id number] NRG COLONY COUNT <10,000 NRG Complete blood count (CBC) with automated white blood cell (WBC) differential - 06/28/17 20:44 Blood leukocytes automated count (number/volume) 15.7 10*3/uL 4.3-11.0 Blood erythrocytes automated count (number/volume) 3.85 10*6/uL 4.35-5.85 Venous blood hemoglobin measurement (mass/volume) 11.4 g/dL 11.5-16.0 Blood hematocrit (volume fraction) 33 % 35-52 Automated erythrocyte mean corpuscular volume 84 [[facility]_us] 80-99 Automated erythrocyte mean corpuscular hemoglobin (mass per erythrocyte) 30 pg 25-34 Automated erythrocyte mean corpuscular hemoglobin concentration measurement ( mass/volume) 35 g/dL 32-36 Automated erythrocyte distribution width ratio 12.8 % 10.0-14.5 Automated blood platelet count (count/volume) 268 10*3/uL 130-400 Automated blood platelet mean volume measurement 9.0 [fo_us] 7.4-10.4 Automated blood neutrophils/100 leukocytes 85 % 42-75 Automated blood lymphocytes/100 leukocytes 9 % 12-44 Blood monocytes/100 leukocytes 5 % 0-12 Automated blood eosinophils/100 leukocytes 1 % 0-10 Automated blood basophils/100 leukocytes 0 % 0-10 Blood neutrophils automated count (number/volume) 13.3 10*3 1.8-7.8 Blood lymphocytes automated count (number/volume) 1.4 10*3 1.0-4.0 Blood monocytes automated count (number/volume) 0.8 10*3 0.0-1.0 Automated eosinophil count 0.1 10*3/uL 0.0-0.3 Automated blood basophil count (count/volume) 0.0 10*3/uL 0.0-0.1 Blood manual differential performed detection - 06/28/17 20:44 Blood monocytes/100 leukocytes 9 % NRG Manual blood segmented neutrophils/100 leukocytes 75 % NRG Blood band neutrophils/100 leukocytes 5 % NRG Manual blood lymphocytes/100 leukocytes 9 % NRG Manual eosinophils/100 leukocytes in nose 1 % NRG Manual blood basophils/100 leukocytes 0 % NRG Blood lymphocytes variant/100 leukocytes 1 % NRG Blood ovalocytes detection by light microscopy SLIGHT NRG Blood toxic granules detection by light microscopy 1+ NRG Blood poikilocytosis detection by light microscopy SLIGHT NRG Comprehensive metabolic panel - 06/28/17 20:44 Serum or plasma sodium measurement (moles/volume) 138 mmol/L 135-145 Serum or plasma potassium measurement (moles/volume) 3.2 mmol/L 3.6-5.0 Serum or plasma chloride measurement (moles/volume) 106 mmol/L 98-107 Carbon dioxide 20 mmol/L 21-32 Serum or plasma anion gap determination (moles/volume) 12 mmol/L 5-14 Serum or plasma urea nitrogen measurement (mass/volume) 8 mg/dL 7-18 Serum or plasma creatinine measurement (mass/volume) 0.71 mg/dL 0.60-1.30 Serum or plasma urea nitrogen/creatinine mass ratio 11 NRG Serum or plasma creatinine measurement with calculation of estimated glomerular filtration rate > NRG Serum or plasma glucose measurement (mass/volume) 92 mg/dL 70-105 Serum or plasma calcium measurement (mass/volume) 8.6 mg/dL 8.5-10.1 Serum or plasma total bilirubin measurement (mass/volume) 0.3 mg/dL 0.1-1.0 Serum or plasma alkaline phosphatase measurement (enzymatic activity/volume) 57 U/L 40-136 Serum or plasma aspartate aminotransferase measurement (enzymatic activity/ volume) 18 U/L 5-34 Serum or plasma alanine aminotransferase measurement (enzymatic activity/volume ) 20 U/L 0-55 Serum or plasma protein measurement (mass/volume) 6.6 g/dL 6.4-8.2 Serum or plasma albumin measurement (mass/volume) 3.4 g/dL 3.2-4.5 [id number] - 06/28/17 21:35 [id number] SPECIMEN AVAILABLE [facility] Complete blood count (CBC) with automated white blood cell (WBC) differential - 06/29/17 05:15 Blood leukocytes automated count (number/volume) 14.0 10*3/uL 4.3-11.0 Blood erythrocytes automated count (number/volume) 3.42 10*6/uL 4.35-5.85 Venous blood hemoglobin measurement (mass/volume) 10.1 g/dL 11.5-16.0 Blood hematocrit (volume fraction) 29 % 35-52 Automated erythrocyte mean corpuscular volume 85 [foz_us] 80-99 Automated erythrocyte mean corpuscular hemoglobin (mass per erythrocyte) 30 pg 25-34 Automated erythrocyte mean corpuscular hemoglobin concentration measurement ( mass/volume) 35 g/dL 32-36 Automated erythrocyte distribution width ratio 12.7 % 10.0-14.5 Automated blood platelet count (count/volume) 260 10*3/uL 130-400 Automated blood platelet mean volume measurement 8.9 [foz_us] 7.4-10.4 Automated blood neutrophils/100 leukocytes 80 % 42-75 Automated blood lymphocytes/100 leukocytes 12 % 12-44 Blood monocytes/100 leukocytes 8 % 0-12 Automated blood eosinophils/100 leukocytes 0 % 0-10 Automated blood basophils/100 leukocytes 0 % 0-10 Blood neutrophils automated count (number/volume) 11.2 10*3 1.8-7.8 Blood lymphocytes automated count (number/volume) 1.6 10*3 1.0-4.0 Blood monocytes automated count (number/volume) 1.1 10*3 0.0-1.0 Automated eosinophil count 0.0 10*3/uL 0.0-0.3 Automated blood basophil count (count/volume) 0.0 10*3/uL 0.0-0.1 Complete blood count (CBC) with automated white blood cell (WBC) differential - 06/30/17 05:15 Blood leukocytes automated count (number/volume) 8.3 10*3/uL 4.3-11.0 Blood erythrocytes automated count (number/volume) 3.37 10*6/uL 4.35-5.85 Venous blood hemoglobin measurement (mass/volume) 9.9 g/dL 11.5-16.0 Blood hematocrit (volume fraction) 29 % 35-52 Automated erythrocyte mean corpuscular volume 86 [foz_us] 80-99 Automated erythrocyte mean corpuscular hemoglobin (mass per erythrocyte) 29 pg 25-34 Automated erythrocyte mean corpuscular hemoglobin concentration measurement ( mass/volume) 34 g/dL 32-36 Automated erythrocyte distribution width ratio 12.7 % 10.0-14.5 Automated blood platelet count (count/volume) 248 10*3/uL 130-400 Automated blood platelet mean volume measurement 8.9 [foz_us] 7.4-10.4 Automated blood neutrophils/100 leukocytes 68 % 42-75 Automated blood lymphocytes/100 leukocytes 21 % 12-44 Blood monocytes/100 leukocytes 9 % 0-12 Automated blood eosinophils/100 leukocytes 2 % 0-10 Automated blood basophils/100 leukocytes 0 % 0-10 Blood neutrophils automated count (number/volume) 5.7 10*3 1.8-7.8 Blood lymphocytes automated count (number/volume) 1.8 10*3 1.0-4.0 Blood monocytes automated count (number/volume) 0.7 10*3 0.0-1.0 Automated eosinophil count 0.2 10*3/uL 0.0-0.3 Automated blood basophil count (count/volume) 0.0 10*3/uL 0.0-0.1 RH IMMUNE GLOBULIN RHOPHYLAC - 08/24/17 12:10 RH IMMUNE GLOBULIN RHOPHYLAC PRSMD [id number] 08/24/17 1222 NRG Transfusion band number - 08/24/17 12:10 Transfusion band number [id number] NRG [id number] - 08/24/17 12:10 [id number] 300ug NRG Lot number - 08/24/17 12:10 Lot number [id number] NRG cell screen - 08/24/17 12:10 cell screen 03/12/19 NRG Encounters ACCT No. Visit Date/Time Discharge Status Pt. Type Provider Facility Loc./Unit Complaint [id number] 08/24/2017 11:50:00 08/24/2017 12:30:00 DIS Outpatient GEOFF CANNON MD [facility] WSo Z31.82 [id number] 06/28/2017 19:34:00 06/30/2017 07:19:00 DIS Inpatient GEOFF CANNON MD [facility] LDRP ABDOMINAL PAIN [id number] 06/05/2017 13:30:00 06/05/2017 16:28:00 DIS Emergency JOCY AGRAWAL MD [facility] ER sob/murmur/18 WKS [id number] 05/18/2017 22:11:00 05/18/2017 23:30:00 DIS Emergency JODIE CARRANZA MD [facility] ER 15 WKS PREG/VAG BLEEDING [id number] 04/17/2017 15:48:00 04/17/2017 22:45:00 DIS Outpatient RUSLAN CLEMENS MD [facility] WSo NAUSEA/VOMITING 10 WEEKS [id number] 02/09/2016 12:38:00 02/10/2016 13:29:00 DIS Inpatient DAVID BRONSON DO [facility] LDRP LABOR [id number] 03/19/2015 11:02:00 04/04/2015 12:20:00 DIS Outpatient ROMARIO ONOFRE MD [facility] REHAB [id number] 02/25/2015 15:10:00 02/25/2015 16:37:00 DIS Emergency MARIYA EAST APRN [facility] ER ABD PAIN [id number] 05/29/2014 17:52:00 05/29/2014 19:35:00 DIS Emergency NICOL ALEGRE MD [facility] ER [id number] 03/11/2014 23:56:00 03/12/2014 00:35:00 DIS Emergency NICOL ALEGRE MD [facility] ER [id number] 06/20/2016 14:37:00 06/20/2016 14:37:00 DIS Outpatient Annika FORMAN, [facility]
[2017-09-30 20:45] VITALS: BP 117/60
[2017-09-30] MEDS ORDERED: BETAMETHASONE ACE/NA PHOS 6 MG/ML (CELESTONE SOLUSPAN) IM SCH (21:00)
[2017-09-30 23:35] VITALS: BP 130/58
[2017-10-01] MEDS: ceFAZolin INJECTION 1,000 MG in NS (IVPB) 50 ML IV SCH ×2 (01:40→08:12)
[2017-10-01] MEDS: D5 LR IV SOLUTION 1,000 ML IV SCH (03:58)
[2017-10-01 04:00] VITALS: BP 110/54
[2017-10-01] MEDS ORDERED: NITR-65 PO ×2 (07:54)
[2017-10-01] MEDS ORDERED: ONDA8TAB9 PO (07:54)
--- NOTE | 2017-10-01 07:55 | Discharge Instructions ---
Discharge Instructions Discharge Medications New, Converted or Re-Newed RX: RX on Chart Patient Instructions Patient Instructions: As directed [facility] to [facility] For: As instructed Activity & Diet Discharge Diet: No Restrictions Activity as Tolerated: Yes Orders-Post D/C & Referrals Return to clinic next week as scheduled for R Please call in rx to patient pharmacy Patient is to take Macrobid 100 mg twice a day for 7 days and then 100 mg once a day for the duration of her GEOFF CANNON MD Oct 01, 2017 7:55 am
--- NOTE | 2017-10-01 07:59 | History & Physical ---
History and Physical Date Seen by Provider: Oct 01, 2017 Time Seen by Provider: 07:56 This patient is a 27-year-old white female who presented last evening with contractions pain nausea and vomiting. She was found to have a urinary tract infection. She was started on appropriate antibiotics. She was treated with IV fluids and IV antiemetics. She is symptomatically improved this morning nausea is resolved. Cramps have resolved. She was karyn some on admission and her cervix made minimal change that after hydration and her contractions resolved and her cervix has remained stable she denies rupture membranes or bleeding. Denies chest pain shortness of breath. Allergies are to Phenergan and Dilantin Medications are Zoloft and Zofran and vitamins Medical social and surgical histories are per the Department record HEENT exam is normal Neck supple no lymphadenopathy or thyromegaly Abdomen gravid soft nontender nondistended Extremities show no clubbing cyanosis. Homans sign. Pelvic exam is per the admitting nurse which showed minimal changes last night stable exam since then Monitor shows rare contractions with a normal heart rate pattern Laboratory Tests Test 09/30/17 15:25 Range/Units Urine Color YELLOW Urine Clarity CLEAR Urine pH 6.5 5-9 Urine Specific Welch 1.020 1.016-1.022 Urine Protein 2+ H NEGATIVE Urine Glucose (UA) NEGATIVE NEGATIVE Urine Ketones 3+ H NEGATIVE Urine Nitrite NEGATIVE NEGATIVE Urine Bilirubin NEGATIVE NEGATIVE Urine Urobilinogen NORMAL NORMAL MG/DL Urine Leukocyte Esterase 1+ H NEGATIVE Urine RBC (Auto) NEGATIVE NEGATIVE Urine RBC NONE /HPF Urine WBC 5-10 H /HPF Urine Squamous Epithelial Cells 10-25 H /HPF Urine Crystals NONE /LPF Urine Bacteria FEW H /HPF Urine Casts NONE /LPF Urine Mucus LARGE H /LPF Urine Culture Indicated YES Urine culture is pending. Vital Signs Date Time Temp Pulse Resp B/P (MAP) Pulse Ox O2 Delivery O2 Flow Rate FiO2 10/01/17 04:00 97.2 86 110/54 (72) 09/30/17 23:35 99.5 84 130/58 (82) 09/30/17 20:45 106 117/60 (79) 09/30/17 20:20 98.9 09/30/17 19:30 99.7 94 115/59 (77) 09/30/17 18:10 98.1 09/30/17 17:40 110/55 (73) 09/30/17 16:40 97.7 94 20 118/71 (87) I & O 10/01/17 06:59 Intake Total 1100 ml Balance 1100 ml As stable. Patient . Assessment and plan 33 week gestation patient with labor that has now resolved. She has been given a single dose of betamethasone and that will be repeated she was found to have a urinary tract infection was started [place] at the [facility] twice a day for 7 days and then once daily for the duration of her . She was given return precautions and instructions to follow up in clinic as scheduled. Allergies and Home Medications Allergies Coded Allergies: phenytoin (Unverified Allergy, Severe, ANAPHYLAXIS, 03/12/14) promethazine (Unverified Allergy, Intermediate, 03/12/14) Home Medications Nitrofurantoin Monohyd/M-Cryst 100 Mg Capsule, 1 TAB PO BID, #14 Prescribed by: GEOFF ELLSWORTH on 10/01/17 0754 Nitrofurantoin Monohyd/M-Cryst 100 Mg Capsule, 1 TAB PO DAILY for 40 Days, #40 Prescribed by: GEOFF ELLSWORTH on 10/01/17 0754 Ondansetron 8 Mg Tab.rapdis, 8 MG PO Q6H PRN for nausea, #20 Prescribed by: GEOFF ELLSWORTH on 10/01/17 0754 Vit W-Ca,Fe,FA(<1 mg) 1 Each Tablet, 1 EACH PO DAILY, (Reported) EGOFF CANNON MD Oct 01, 2017 7:59 am
--- NOTE | 2017-10-01 08:13 | Progress Note-Standard ---
Standard Progress Note Progress Notes/Assess & Plan Date Seen by Provider: Oct 01, 2017 Time Seen by Provider: 08:13 Final Diagnosis UTI in at 33 weeks gestation GEOFF CANNON MD Oct 01, 2017 8:13 am
[2017-10-01 08:15] VITALS: BP 112/57
--- OUTSIDE RECORDS SUMMARY | 2017-10-02 14:11 | XMS REPORT | Continuity of Care Document ---
Author Author [facility] Organization [facility] Address Unknown Phone Unavailable Allergies Active Description [...] Drug Allergy Unknown N/A 04/01/2004 Yes phenytoin [id number] Drug Allergy Severe ANAPHYLAXIS 03/12/2014 Yes promethazine [id number] Drug Allergy Moderate N/A 03/12/2014 Medications There is no data. Problems Date Dx Coded Attending Type Code Diagnosis Diagnosed By 03/12/2014 SIS FORMAN, NICOL Kimball Ot 682.0 05/29/2014 SIS FORMAN, NICOL Kimball Ot 789.01 02/25/2015 MARIYA EAST TREAD BUILDER Ot 625.3 DYSMENORRHEA 02/25/2015 MARIYA E[employer] TREAD BUILDER Ot 789.00 ABDOMINAL PAIN, UNSPECIFIED SITE 03/14/2015 [...] O26.892 OTRay RELATED CONDITIONS, SECOND 06/30/2017 GEOFF CANNON MD, [...] culture - 06/28/17 19:45 Bacterial urine culture [id number] NRG COLONY COUNT <10,000 NRG Complete blood count (CBC) with automated white blood cell (WBC) differential - 06/28/17 20:44 Blood leukocytes automated count (number/volume) 15.7 10*3/uL 4.3-11.0 Blood erythrocytes automated count (number/volume) 3.85 10*6/uL 4.35-5.85 Venous blood hemoglobin measurement (mass/volume) 11.4 g/dL 11.5-16.0 Blood hematocrit (volume fraction) 33 % 35-52 Automated erythrocyte mean corpuscular volume 84 [[facility]] 80-99 Automated erythrocyte mean corpuscular hemoglobin (mass [...] plasma albumin measurement (mass/volume) 3.4 g/dL 3.2-4.5 [id number] - 06/28/17 21:35 [id number] SPECIMEN AVAILABLE [facility] Complete blood count (CBC) with automated white [...] number - 08/24/17 12:10 Transfusion band number [id number] NRG [id number] - 08/24/17 12:10 [id number] 1 300ug NRG Lot number - 08/24/17 12:10 Lot number [id number] NRG cell screen - 08/24/17 12:10 cell screen 03/12/19 NRG Complete blood count (CBC) with automated white blood cell (WBC) differential - 09/22/17 18:29 Blood leukocytes automated count (number/volume) 14.5 10*3/uL 4.3-11.0 Blood erythrocytes automated count (number/volume) 3.58 10*6/uL 4.35-5.85 Venous blood hemoglobin measurement (mass/volume) 9.9 g/dL 11.5-16.0 Blood hematocrit (volume fraction) 30 % 35-52 Automated erythrocyte mean corpuscular volume 83 [[facility]] 80-99 Automated erythrocyte mean corpuscular hemoglobin (mass per erythrocyte) 28 pg 25-34 Automated erythrocyte mean corpuscular hemoglobin concentration measurement ( mass/volume) 33 g/dL 32-36 Automated erythrocyte distribution width ratio 12.4 % 10.0-14.5 Automated blood platelet count (count/volume) 256 10*3/uL 130-400 Automated blood platelet mean volume measurement 9.4 [[facility]_us] 7.4-10.4 Automated blood neutrophils/100 leukocytes 73 % 42-75 Automated blood lymphocytes/100 leukocytes 13 % 12-44 Blood monocytes/100 leukocytes 12 % 0-12 Automated blood eosinophils/100 leukocytes 1 % 0-10 Automated blood basophils/100 leukocytes 0 % 0-10 Blood neutrophils automated count (number/volume) 10.6 10*3 1.8-7.8 Blood lymphocytes automated count (number/volume) 1.9 10*3 1.0-4.0 Blood monocytes automated count (number/volume) 1.8 10*3 0.0-1.0 Automated eosinophil count 0.2 10*3/uL 0.0-0.3 Automated blood basophil count (count/volume) 0.0 10*3/uL 0.0-0.1 Blood manual differential performed detection - 09/22/17 18:29 Blood monocytes/100 leukocytes 5 % NRG Manual blood segmented neutrophils/100 leukocytes 71 % NRG Blood band neutrophils/100 leukocytes 1 % NRG Manual blood lymphocytes/100 leukocytes 22 % NRG Manual eosinophils/100 leukocytes in nose 1 % NRG Manual blood basophils/100 leukocytes 0 % NRG Blood hypochromia detection by light microscopy SLIGHT NRG Complete urinalysis with reflex to culture - 09/25/17 20:45 Urine color determination YELLOW NRG Urine clarity determination CLEAR NRG Urine pH measurement by test strip 7 5-9 Specific gravity of urine by test strip 1.005 1.016- 1.022 Urine protein assay by test strip, semi-quantitative NEGATIVE NEGATIVE Urine glucose detection by automated test strip NEGATIVE NEGATIVE Erythrocytes detection in urine sediment by light microscopy NEGATIVE NEGATIVE Urine ketones detection by automated test strip NEGATIVE NEGATIVE Urine nitrite detection by test strip NEGATIVE NEGATIVE Urine total bilirubin detection by test strip NEGATIVE NEGATIVE Urine urobilinogen measurement by automated test strip (mass/volume) NORMAL NORMAL Urine leukocyte esterase detection by dipstick 3+ NEGATIVE Automated urine sediment erythrocyte count by microscopy (number/high power field) NONE NRG Automated urine sediment leukocyte count by microscopy (number/high power field ) [HPF] NRG Bacteria detection in urine sediment by light microscopy TRACE NRG Squamous epithelial cells detection in urine sediment by light microscopy 10-25 NRG Crystals detection in urine sediment by light microscopy NONE NRG Casts detection in urine sediment by light microscopy NONE NRG Mucus detection in urine sediment by light microscopy NEGATIVE NRG Complete urinalysis with reflex to culture YES NRG Bacterial urine culture - 09/25/17 20:45 Bacterial urine culture [id number] NRG COLONY COUNT <10,000 NRG Complete urinalysis with reflex to culture - 09/25/17 21:30 Urine color determination YELLOW NRG Urine clarity determination CLEAR NRG Urine pH measurement by test strip 7 5-9 Specific gravity of urine by test strip 1.005 1.016- 1.022 Urine protein assay by test strip, semi-quantitative NEGATIVE NEGATIVE Urine glucose detection by automated test strip NEGATIVE NEGATIVE Erythrocytes detection in urine sediment by light microscopy NEGATIVE NEGATIVE Urine ketones detection by automated test strip NEGATIVE NEGATIVE Urine nitrite detection by test strip NEGATIVE NEGATIVE Urine total bilirubin detection by test strip NEGATIVE NEGATIVE Urine urobilinogen measurement by automated test strip (mass/volume) NORMAL NORMAL Urine leukocyte esterase detection by dipstick NEGATIVE NEGATIVE Automated urine sediment erythrocyte count by microscopy (number/high power field) NONE NRG Automated urine sediment leukocyte count by microscopy (number/high power field ) RARE NRG Bacteria detection in urine sediment by light microscopy NEGATIVE NRG Squamous epithelial cells detection in urine sediment by light microscopy 0-2 NRG Crystals detection in urine sediment by light microscopy NONE NRG Casts detection in urine sediment by light microscopy NONE NRG Mucus detection in urine sediment by light microscopy NEGATIVE NRG Complete urinalysis with reflex to culture NO NRG Complete urinalysis with reflex to culture - 09/30/17 15:25 Urine color determination YELLOW NRG Urine clarity determination CLEAR NRG Urine pH measurement by test strip 6.5 5-9 Specific gravity of urine by test strip 1.020 1.016- 1.022 Urine protein assay by test strip, semi-quantitative 2+ NEGATIVE Urine glucose detection by automated test strip NEGATIVE NEGATIVE Erythrocytes detection in urine sediment by light microscopy NEGATIVE NEGATIVE Urine ketones detection by automated test strip 3+ NEGATIVE Urine nitrite detection by test strip NEGATIVE NEGATIVE Urine total bilirubin detection by test strip NEGATIVE NEGATIVE Urine urobilinogen measurement by automated test strip (mass/volume) NORMAL NORMAL Urine leukocyte esterase detection by dipstick 1+ NEGATIVE Automated urine sediment erythrocyte count by microscopy (number/high power field) NONE NRG Automated urine sediment leukocyte count by microscopy (number/high power field ) [HPF] NRG Bacteria detection in urine sediment by light microscopy FEW NRG Squamous epithelial cells detection in urine sediment by light microscopy 10-25 NRG Crystals detection in urine sediment by light microscopy NONE NRG Casts detection in urine sediment by light microscopy NONE NRG Mucus detection in urine sediment by light microscopy LARGE NRG Complete urinalysis with reflex to culture YES NRG Bacterial urine culture - 09/30/17 15:25 Bacterial urine culture NG NRG Encounters ACCT No. Visit Date/Time Discharge Status Pt. Type Provider Facility Loc./Unit Complaint [id number] 08/24/2017 11:50:00 08/24/2017 12:30:00 DIS Outpatient DAVIS FORMAN, [facility]OFF [facility] Z[facility] [id number] 06/28/2017 19:34:00 06/30/2017 07:19:00 DIS Inpatient DAVIS FORMAN, GEOFF Vaughan [facility] LDRP ABDOMINAL PAIN [id number] 06/05/2017 13:30:00 06/05/2017 16:28:00 DIS Emergency NGHIA FORMAN, JOCY S [facility] ER sob/murmur/18 WKS [id number] 05/18/2017 22:11:00 05/18/2017 23:30:00 DIS Emergency TERE FORMAN, JODIE Martinez [facility] ER 15 WKS PREG/VAG BLEEDING [id number] 04/17/2017 15:48:00 04/17/2017 22:45:00 DIS Outpatient SARATH FORMAN, RUSLAN Ham [facility] WSo NAUSEA/VOMITING 10 WEEKS [id number] 02/09/2016 12:38:00 02/10/2016 13:29:00 DIS Inpatient FENECH DO, DAVID S [facility] LDRP LABOR [id number] 03/19/2015 11:02:00 04/04/2015 12:20:00 DIS Outpatient KINGSTON FORMAN, ROMARIO [place] [facility] REHAB [id number] 02/25/2015 15:10:00 02/25/2015 16:37:00 DIS Emergency MARIYA EAST TREAD BUILDER [facility] ER ABD PAIN [id number] 05/29/2014 17:52:00 05/29/2014 19:35:00 DIS Emergency NICOL ALEGRE MD [facility] ER [id number] 03/11/2014 23:56:00 03/12/2014 00:35:00 DIS Emergency NICOL ALEGRE MD [facility] ER [id number] 10/01/2017 08:15:00 Document Registration [id number] 09/25/2017 21:06:00 Document Registration [id number] 09/22/2017 18:41:00 Document Registration [id number] 06/20/2016 14:37:00 06/20/2016 14:37:00 DIS Outpatient Annika FORMAN, [place] [facility] EDIE
== END 2017-10-01 07:54 | disposition home or self-care (01) ==
LOC: WSo 16:25 → LDRP 16:25 → UNDOADMOB 19:16 → WSo 19:16 → LDRP 19:16 → UNDODISOB 10-01 10:05 → EDSTATUS 10-02 14:05
PROVIDERS: ADMIT Obstetrics & Gynecology; ATTEND Obstetrics & Gynecology
DX: O60.03 Preterm labor without delivery, third trimester (principal); O23.93 Unspecified genitourinary tract infection in pregnancy, third trimester; Z3A.33 33 weeks gestation of pregnancy
CPT/HCPCS: 81000; 87088; 96361; 96372; 96374; 96375; 96376; 99211; G0378

== ENCOUNTER 2017-10-01 17:41 | Outpatient (CLI) | payer OTHER ==
[~2017-10-01 17:41] MED LIST changes: +NITR-65 PO; +ONDA8TAB9 PO
[2017-10-01] MEDS ORDERED: BETAMETHASONE ACE/NA PHOS 6 MG/ML (CELESTONE SOLUSPAN) IM SCH (18:00)
--- NOTE | 2017-10-02 11:24 | Physician Query-Final Dx ---
DILLON SIMENTAL 10/02/17 1124: Clinic Account Progress/Dx Physician Query: Please give a diagnosis for the Betamethasone treatment thank you Date of Service Oct 01, 2017 at 17:41 GEOFF CANNON MD 10/05/17 1215: Clinic Account Progress/Dx DIAGNOSIS: Diagnosis labor DILLON SIMENTAL Oct 02, 2017 11:24 GEOFF CANNON MD Oct 05, 2017 12:15
== END 2017-10-01 18:25 | disposition home or self-care (01) ==
LOC: WSo 17:41
PROVIDERS: ATTEND Obstetrics & Gynecology
DX: O60.00 Preterm labor without delivery, unspecified trimester (principal)
CPT/HCPCS: 96372

== ENCOUNTER 2017-10-03 14:51 | Outpatient (CLI) | payer OTHER ==
[~2017-10-03] VITALS: Ht 152.4 cm; Wt 70.3 kg
[2017-10-03 15:00] VITALS: BP 118/63
[2017-10-03 15:20] VITALS: BP 115/62
[2017-10-03] MEDS ORDERED: FLUC200T PO (15:39)
[2017-10-03] MEDS ORDERED: INFLUENZA TRIvalent 2017-2018 0.5 ML/45 MCG SYR IM ONE (15:45)
--- NOTE | 2017-10-05 15:26 | Physician Query-Final Dx ---
DILLON SIMENTAL 10/05/17 1526: Clinic Account Progress/Dx Physician Query: Please give diagnosis Date of Service Oct 03, 2017 at 14:51 GEOFF CANNON MD 10/06/17 1255: Clinic Account Progress/Dx DIAGNOSIS: Diagnosis false labor DILLON SIMENTAL Oct 05, 2017 15:26 GEOFF CANNON MD Oct 06, 2017 12:55
== END 2017-10-03 15:40 | disposition home or self-care (01) ==
LOC: WSo 14:51 → LDRP 14:52 → WSo 15:40
PROVIDERS: ATTEND Obstetrics & Gynecology
DX: O47.03 False labor before 37 completed weeks of gestation, third trimester (principal); Z3A.33 33 weeks gestation of pregnancy
CPT/HCPCS: 99213

== ENCOUNTER 2017-10-09 19:28 | Inpatient (IN) | payer OTHER ==
[~2017-10-09] VITALS: Ht 152.4 cm; Wt 69.4 kg
[2017-10-09] VITALS (10 sets, daily range): BP systolic 112–141; BP diastolic 58–81
[~2017-10-09 19:28] MED LIST changes: +FLUC200T PO
[2017-10-09] MEDS ORDERED: AMPICILLIN 2000 MG INJECTION (IM/IV) ONE (19:55)
[2017-10-09] MEDS ORDERED: D5 LR IV SOLUTION 1,000 ML IV ONE (19:55)
[2017-10-09] MEDS ORDERED: NS (IVPB) 100 ML ONE (19:56)
[2017-10-09] MEDS: D5 LR IV SOLUTION 1,000 ML IV SCH (20:05)
[2017-10-09] MEDS ORDERED: AMPICILLIN INJECTION 2,000 MG in NS (IVPB) 100 ML IV SCH (20:18)
[2017-10-09 21:23] LABS: BASOPHILS % (AUTO) 0 % (0-10); EOSINOPHILS # (AUTO) 0.1 10^3/uL (0.0-0.3); EOSINOPHILS % (AUTO) 1 % (0-10); HEMATOCRIT 28 % (35-52); HEMOGLOBIN 9.6 G/DL (11.5-16.0); LYMPHOCYTES # (AUTO) 2.4 X 10^3 (1.0-4.0); LYMPHOCYTES % (AUTO) 19 % (12-44); MEAN CORPUSCULAR HEMOGLOBIN 27 PG (25-34); MEAN CORPUSCULAR HGB CONC 34 G/DL (32-36); MEAN CORPUSCULAR VOLUME 81 FL (80-99); MONOCYTES # (AUTO) 1.2 X 10^3 (0.0-1.0); MONOCYTES % (AUTO) 9 % (0-12); NEUTROPHILS # (AUTO) 9.4 X 10^3 (1.8-7.8); NEUTROPHILS % (AUTO) 72 % (42-75); PLATELET COUNT 299 10^3/uL (130-400); RED BLOOD COUNT 3.51 10^6/uL (4.35-5.85); RED CELL DISTRIBUTION WIDTH 12.4 % (10.0-14.5); WHITE BLOOD COUNT 13.1 10^3/uL (4.3-11.0)
[2017-10-09] MEDS ORDERED: OXYTOCIN/NORMAL SALINE 500 ML IV SCH ×2 (21:53→21:57)
[2017-10-09] MEDS ORDERED: D5 LR IV SOLUTION 1,000 ML IV SCH (21:53)
[2017-10-09] MEDS ORDERED: MEASLES,MUMPS,RUBELLA 1 EA INJ SC ONE (22:00)
[2017-10-09] MEDS ORDERED: TETANUS,DIPTH,PERTUSS P/F (BOOSTRIX) 0.5 ML VIAL IM ONE (22:00)
[2017-10-09] MEDS ORDERED: ONDANSETRON 4 MG/2 ML (SDV) Z0FRAN IVP PRN (22:00)
[2017-10-09] MEDS ORDERED: oxyCODONE/APAP 10/325MG (PERCOCET 10) TABLET PO PRN (22:00)
[2017-10-09] MEDS ORDERED: BENZOCAINE/MENTHOL (DERMOPLAST) 56 ML CAN TP PRN (22:00)
--- NOTE | 2017-10-09 22:04 | History & Physical ---
History and Physical Date Seen by Provider: Oct 09, 2017 Time Seen by Provider: 21:59 This patient is a 22-year-old white female currently at 35+ weeks gestation presenting with complaint of rupture membranes spontaneously at 7 p.m. today. She reports a large gush of clear fluid. She was grossly ruptured on admission. She denies bleeding. She has only occasional contraction but those are increasing in frequency and intensity since her arrival. Patient's history is significant for GBS positive. She has been started on prophylactic antibiotics. Allergies are to phenytoin and promethazine Medications are vitamins Medical social and surgical histories are per the antepartum record HEENT exam is normal Neck is supple no lymphadenopathy no thyromegaly Abdomen is gravid soft nontender nondistended Streaming show clubbing cyanosis. There is no Homans sign. Pelvic exam per the presenting nurse shows a cervix that is 3 cm dilated gross rupture vertex presentation high station Laboratory Tests Test 10/09/17 21:12 Range/Units White Blood Count 13.1 H 4.3-11.0 10^3/uL Red Blood Count 3.51 L 4.35-5.85 10^6/uL Hemoglobin 9.6 L 11.5-16.0 G/DL Hematocrit 28 L 35-52 % Mean Corpuscular Volume 81 80-99 FL Mean Corpuscular Hemoglobin 27 25-34 PG Mean Corpuscular Hemoglobin Concent 34 32-36 G/DL Red Cell Distribution Width 12.4 10.0-14.5 % Platelet Count 299 130-400 10^3/uL Mean Platelet Volume 9.0 7.4-10.4 FL Neutrophils (%) (Auto) 72 42-75 % Lymphocytes (%) (Auto) 19 12-44 % Monocytes (%) (Auto) 9 0-12 % Eosinophils (%) (Auto) 1 0-10 % Basophils (%) (Auto) 0 0-10 % Neutrophils # (Auto) 9.4 H 1.8-7.8 X 10^3 Lymphocytes # (Auto) 2.4 1.0-4.0 X 10^3 Monocytes # (Auto) 1.2 H 0.0-1.0 X 10^3 Eosinophils # (Auto) 0.1 0.0-0.3 10^3/uL Basophils # (Auto) 0.0 0.0-0.1 10^3/uL Assessment and plan P PROM at 35+ weeks gestation. Patient will be managed expectantly until at least the second dose of antibiotics are given. Patient is not making adequate progress since in labor by a.m. we will augment with Pitocin. Plan to continue the ampicillin for GBS prophylaxis until after delivery. Pediatrics and RT will be aware of the impending delivery. Anticipation is for vaginal delivery. PPROM at 35 weeks gestation Allergies and Home Medications Allergies Coded Allergies: phenytoin (Unverified Allergy, Severe, ANAPHYLAXIS, 03/12/14) promethazine (Unverified Allergy, Intermediate, 03/12/14) Patient Home Medication List Home Medication List Reviewed: Yes Clinical Quality Measures DVT/VTE Risk/Contraindication: Risk Factor Score Per Nursin RFS Level Per Nursing on Admit: 1=Low/No VTE PPX GEOFF CANNON MD Oct 09, 2017 10:04 pm
[2017-10-09] MEDS ORDERED: SUFENTA 0.6MCG/ML BUPIVA 0.125 100 ML ONE ×2 (23:13→23:56)
[2017-10-09] MEDS ORDERED: LACTATED RINGERS 1,000 ML IV ONE (23:13)
[2017-10-09] MEDS: AMPICILLIN INJECTION 1,000 MG in NS (IVPB) 100 ML IV SCH (23:46)
[2017-10-09] MEDS ORDERED: fentaNYL INJECTION 100 MCG/2 ML AMP ONE (23:55)
[2017-10-10] VITALS (51 sets, daily range): BP systolic 88–129; BP diastolic 45–71
[2017-10-10] MEDS: EPIDURAL (SUFENTA 0.6MCG/ML BUPIVA 0.125%) 100 ML BAG EPI SCH ×2 (00:03→08:14)
[2017-10-10] MEDS ORDERED: LACTATED RINGERS 1,000 ML IV ONE (01:20)
[2017-10-10] MEDS ORDERED: ONDANSETRON 4 MG/2 ML (SDV) Z0FRAN IV PRN (01:30)
[2017-10-10] MEDS ORDERED: CATHETER FLUSH 10 ML SYR IV PRN (01:30)
[2017-10-10] MEDS ORDERED: diphenhydrAMINE 50 MG/ML INJ (BENADRYL) IV PRN (01:30)
[2017-10-10] MEDS ORDERED: NALOXONE 0.4 MG/ML 1 ML (NARCAN) VIAL IV PRN (01:30)
[2017-10-10] MEDS: AMPICILLIN INJECTION 1,000 MG in NS (IVPB) 100 ML IV SCH ×2 (03:59→08:17)
[2017-10-10] MEDS: D5 LR IV SOLUTION 1,000 ML IV SCH (05:35)
[2017-10-10] MEDS: CATHETER FLUSH 10 ML SYR IV SCH ×2 (06:00→20:27)
[2017-10-10] MEDS ORDERED: LIDOCAINE/EPI 2% 1:200,00 (XYLOCAINE) 10 ML VIAL ONE (08:00)
[2017-10-10] MEDS ORDERED: LIDOCAINE/EPI 2% 1:200,00 (XYLOCAINE) 10 ML VIAL INJ ONE (09:20)
--- NOTE | 2017-10-10 09:47 | Progress Note-Standard ---
Standard Progress Note Progress Notes/Assess & Plan Date Seen by Provider: Oct 10, 2017 Time Seen by Provider: 09:46 Progress/Assessment & Plan Patient is now status post spontaneous vaginal delivery. See delivery note. Vital Signs Date Time Temp Pulse Resp B/P (MAP) Pulse Ox O2 Delivery O2 Flow Rate FiO2 10/10/17 08:15 79 115/58 (77) Room Air 10/10/17 08:00 63 18 118/56 (76) Room Air 10/10/17 07:45 67 111/53 (72) Room Air 10/10/17 07:30 77 121/58 (79) Room Air 10/10/17 07:15 98.6 82 18 116/66 (83) 99 Room Air 10/10/17 07:00 64 18 107/57 (74) 98 Room Air 10/10/17 06:45 64 18 107/57 (74) 98 Room Air 10/10/17 06:30 78 18 109/58 (75) 98 Room Air 10/10/17 06:15 67 18 111/59 (76) 98 Room Air 10/10/17 06:00 98.0 78 18 114/56 (75) 98 Room Air 10/10/17 05:45 75 18 108/52 (70) 98 Room Air 10/10/17 05:30 69 18 104/48 (66) 98 Room Air 10/10/17 05:15 77 18 110/59 (76) 98 Room Air 10/10/17 05:00 87 18 106/55 (72) 98 Room Air 10/10/17 04:45 75 18 117/59 (78) 99 Room Air 10/10/17 04:30 79 18 107/54 (71) 99 Room Air 10/10/17 04:15 78 18 111/53 (72) 99 Room Air 10/10/17 04:00 76 18 110/57 (74) 100 Room Air 10/10/17 03:45 85 18 111/57 (75) 100 Room Air 10/10/17 03:30 91 18 92/50 (64) 99 Room Air 10/10/17 03:15 71 18 89/54 (66) 99 Room Air 10/10/17 03:00 69 18 99/52 (68) 99 Room Air 10/10/17 02:45 67 18 107/56 (73) 98 Room Air 10/10/17 02:30 73 18 105/57 (73) 98 Room Air 10/10/17 02:15 66 18 109/54 (72) 98 Room Air 10/10/17 02:00 62 18 109/56 (73) 98 Room Air 10/10/17 01:45 65 18 91/46 (61) 98 Room Air 10/10/17 01:30 65 18 106/49 (68) 99 Room Air 10/10/17 01:15 73 18 108/51 (70) 99 Room Air 10/10/17 01:03 75 18 100/52 (68) 99 Room Air 10/10/17 00:46 80 18 97/66 (76) 97 Room Air 10/10/17 00:30 64 18 108/54 (72) 99 Room Air 10/10/17 00:30 97.4 10/10/17 00:20 69 18 109/55 (73) 98 Room Air 10/10/17 00:08 88 18 116/55 (75) 99 Room Air 10/10/17 00:00 89 18 119/56 (77) 100 Room Air 10/09/17 23:56 101 18 119/63 (81) 99 Room Air 10/09/17 23:50 80 18 119/63 (81) 99 Room Air 10/09/17 23:42 100 18 112/81 (91) 100 Room Air 10/09/17 23:10 80 18 139/60 (86) 10/09/17 22:40 90 18 141/69 (93) 10/09/17 22:10 77 18 115/58 (77) 10/09/17 21:40 99 18 127/78 (94) 10/09/17 20:40 88 18 125/61 (82) 10/09/17 20:10 96 18 126/72 (90) 10/09/17 19:50 96 18 126/72 (90) I & O 10/10/17 07:00 Intake Total 2500 ml Output Total 1400 ml Balance 1100 ml Vital signs are stable. Patient afebrile. Abdomen is benign. Extreme show clubbing cyanosis. There is no Homans sign. Senseman and plan status post spontaneous vaginal delivery doing well plan for routine convalescence care GEOFF CANNON MD Oct 10, 2017 9:47 am
[2017-10-10] MEDS ORDERED: OXYC-465 PO (09:53)
[2017-10-10] MEDS ORDERED: IBUP-1780 PO (09:53)
[2017-10-10] MEDS ORDERED: DOCU100C37 PO (09:53)
--- NOTE | 2017-10-10 09:54 | Discharge Instructions ---
Discharge Instructions Discharge Medications New, Converted or Re-Newed RX: RX on Chart Patient Instructions Patient Instructions: as directed Return to The Hospital For: As directed Activity & Diet Discharge Diet: No Restrictions Activity as Tolerated: No Orders-Post D/C & Referrals Follow Up Appt: Call to make follow up appt. for patient in 4 weeks. Activity Per routine post vaginal delivery instructions. Please call in RX to patient pharmacy. Diet as tolerated Patient may shower or tub bathe as desired. GEOFF CANNON MD Oct 10, 2017 9:54 am
[2017-10-10] MEDS: KETOROLAC 30 MG/ML VIAL IV SCH ×2 (11:04→17:03)
--- NOTE | 2017-10-10 12:40 | OPERATIVE REPORT ---
DATE OF SERVICE: 10/10/2017 DELIVERY NOTE The patient delivered by spontaneous vaginal delivery a viable female with Apgars of 7 and 9 at 1 and 5 minutes respectively, weight of 5 pounds 13 ounces, time of 09:21. Cord blood gas was 7.30. Delivery was accomplished over an intact perineum under epidural and local analgesia. The inner labia minora sustained a laceration of approximately 4 cm. The infant was bulb suctioned on delivery of the head and again on completion of delivery. The umbilical cord when pulseless was doubly clamped, father cut the cord, the baby was taken to the warmer secondary to prematurity. Sapphire Knight RN was a pediatric nurse on hand for delivery. The placenta delivered spontaneously [place]. It was a battledore placenta with a 3-vessel cord. The cervix, vagina, rectum and perineum were examined and found intact, except for the right periurethral inner labia minora laceration, which was repaired with a running baseball stitch suture of 3-0 Vicryl Rapide. The patient tolerated the delivery and the repair well. The repair was accomplished under local. Sponge and needle counts were correct on completion of delivery and repair. Estimated blood loss was around 300 mL. The patient remained in the LDR for recovery. The baby at this point was remaining with the mom. Job ID: [id number] DocumentID: [id number] Dictated Date: 10/10/2017 09:41:27 Turbine Assembler Date: 10/10/2017 12:39:53 Dictated By: GEOFF CANNON MD
--- NOTE | 2017-10-10 16:56 | Anesthesia-Regional Post-Op ---
Regional Patient Condition Mental Status: Alert, Oriented x3 Circulation: Same as Pre-Op Headache: Absent Sensation: Full Recovery Motor Block: Absent Post Op Complications Complications None Follow Up Care/Instructions Patient Instructions None needed. Anesthesia/Patient Condition Patient is doing well, no complaints, stable vital signs, no apparent adverse anesthesia problems. No complications reported per nursing. KAYLEE CALI CRNA Oct 10, 2017 16:56
[2017-10-10] MEDS ORDERED: WITCH HAZEL(TUCKS) 40 EA JAR TOP PRN (17:15)
[2017-10-10] MEDS: DOCUSATE SODIUM 100 MG (COLACE) CAP PO SCH ×2 (20:26→20:44)
[2017-10-10] MEDS: IBUPROFEN 800 MG (MOTRIN) TAB PO SCH (23:01)
[2017-10-11 04:25] VITALS: BP 107/55
[2017-10-11] MEDS: IBUPROFEN 800 MG (MOTRIN) TAB PO SCH ×4 (04:25→22:10)
[2017-10-11 08:00] VITALS: BP 121/77
--- NOTE | 2017-10-11 08:37 | Progress Note-Standard ---
Standard Progress Note Progress Notes/Assess & Plan Date Seen by Provider: Oct 11, 2017 Time Seen by Provider: 08:36 Progress/Assessment & Plan Patient is now status post spontaneous vaginal delivery. See delivery note. Vital Signs Date Time Temp Pulse Resp B/P (MAP) Pulse Ox O2 Delivery O2 Flow Rate FiO2 10/10/17 08:15 79 115/58 (77) Room Air 10/10/17 08:00 63 18 118/56 (76) Room Air 10/10/17 07:45 67 111/53 (72) Room Air 10/10/17 07:30 77 121/58 (79) Room Air 10/10/17 07:15 98.6 82 18 116/66 (83) 99 Room Air 10/10/17 07:00 64 18 107/57 (74) 98 Room Air 10/10/17 06:45 64 18 107/57 (74) 98 Room Air 10/10/17 06:30 78 18 109/58 (75) 98 Room Air 10/10/17 06:15 67 18 111/59 (76) 98 Room Air 10/10/17 06:00 98.0 78 18 114/56 (75) 98 Room Air 10/10/17 05:45 75 18 108/52 (70) 98 Room Air 10/10/17 05:30 69 18 104/48 (66) 98 Room Air 10/10/17 05:15 77 18 110/59 (76) 98 Room Air 10/10/17 05:00 87 18 106/55 (72) 98 Room Air 10/10/17 04:45 75 18 117/59 (78) 99 Room Air 10/10/17 04:30 79 18 107/54 (71) 99 Room Air 10/10/17 04:15 78 18 111/53 (72) 99 Room Air 10/10/17 04:00 76 18 110/57 (74) 100 Room Air 10/10/17 03:45 85 18 111/57 (75) 100 Room Air 10/10/17 03:30 91 18 92/50 (64) 99 Room Air 10/10/17 03:15 71 18 89/54 (66) 99 Room Air 10/10/17 03:00 69 18 99/52 (68) 99 Room Air 10/10/17 02:45 67 18 107/56 (73) 98 Room Air 10/10/17 02:30 73 18 105/57 (73) 98 Room Air 10/10/17 02:15 66 18 109/54 (72) 98 Room Air 10/10/17 02:00 62 18 109/56 (73) 98 Room Air 10/10/17 01:45 65 18 91/46 (61) 98 Room Air 10/10/17 01:30 65 18 106/49 (68) 99 Room Air 10/10/17 01:15 73 18 108/51 (70) 99 Room Air 10/10/17 01:03 75 18 100/52 (68) 99 Room Air 10/10/17 00:46 80 18 97/66 (76) 97 Room Air 10/10/17 00:30 64 18 108/54 (72) 99 Room Air 10/10/17 00:30 97.4 10/10/17 00:20 69 18 109/55 (73) 98 Room Air 10/10/17 00:08 88 18 116/55 (75) 99 Room Air 10/10/17 00:00 89 18 119/56 (77) 100 Room Air 10/09/17 23:56 101 18 119/63 (81) 99 Room Air 10/09/17 23:50 80 18 119/63 (81) 99 Room Air 10/09/17 23:42 100 18 112/81 (91) 100 Room Air 10/09/17 23:10 80 18 139/60 (86) 10/09/17 22:40 90 18 141/69 (93) 10/09/17 22:10 77 18 115/58 (77) 10/09/17 21:40 99 18 127/78 (94) 10/09/17 20:40 88 18 125/61 (82) 10/09/17 20:10 96 18 126/72 (90) 10/09/17 19:50 96 18 126/72 (90) I & O 10/10/17 07:00 Intake Total 2500 ml Output Total 1400 ml Balance 1100 ml Vital signs are stable. Patient afebrile. Abdomen is benign. Extreme show clubbing cyanosis. There is no Homans sign. Senseman and plan status post spontaneous vaginal delivery doing well plan for routine convalescence care October 11, 2017 Patient is without complaint. She is ambulating, voiding, tolerating by mouth, has good pain control. Patient denies chest pain, denies shortness of breath, denies nausea vomiting, and denies headache. Vital Signs Date Time Temp Pulse Resp B/P (MAP) Pulse Ox O2 Delivery O2 Flow Rate FiO2 10/11/17 08:00 98.4 85 18 121/77 (92) 99 Room Air 10/11/17 04:25 98.3 90 18 107/55 (72) 98 Room Air 10/10/17 23:01 98.0 74 18 121/71 (88) 98 Room Air 10/10/17 20:44 98.0 83 18 114/57 (76) 99 Room Air 10/10/17 18:00 97.6 78 16 97/49 (65) 99 Room Air 10/10/17 14:37 97.6 78 16 90/45 (60) 99 Room Air 10/10/17 11:30 98 115/62 (79) Room Air 10/10/17 11:15 90 118/59 (78) Room Air 10/10/17 11:00 86 18 111/58 (75) Room Air 10/10/17 10:45 83 115/53 (73) Room Air 10/10/17 10:30 80 113/59 (77) Room Air 10/10/17 10:15 83 113/55 (74) Room Air 10/10/17 10:00 80 113/56 (75) Room Air 10/10/17 09:45 98.0 91 18 104/62 (76) Room Air 10/10/17 09:15 80 129/64 (85) Room Air 10/10/17 09:00 68 20 99/53 (68) Room Air 10/10/17 08:45 98.2 60 88/47 (61) Room Air I & O 10/11/17 07:00 Intake Total 2300 ml Output Total 300 ml Balance 2000 ml Vital signs are stable. Patient is afebrile. Fundus is firm below the umbilicus and nontender. Streaming show no clubbing cyanosis. There is no Homans sign. Assessment and plan day number 1 status post spontaneous vaginal delivery doing well. Plan is for routine convalescence care today and consider for discharge home tomorrow GEOFF CANNON MD Oct 11, 2017 8:37 am
[2017-10-11] MEDS: DOCUSATE SODIUM 100 MG (COLACE) CAP PO SCH ×2 (09:00→22:10)
[2017-10-11] MEDS ORDERED: TETANUS,DIPTH,PERTUSS P/F (BOOSTRIX) 0.5 ML VIAL IM ONE (10:10)
[2017-10-11 14:00] VITALS: BP 111/76
[2017-10-11 22:10] VITALS: BP 113/66
[2017-10-12 04:45] VITALS: BP 96/53
[2017-10-12] MEDS: IBUPROFEN 800 MG (MOTRIN) TAB PO SCH (04:45)
--- NOTE | 2017-10-12 08:03 | Discharge Summary ---
Discharge Summary spontaneous vaginal delivery at 34-5/7 weeks gestation This patient is a 22-year-old white female who was admitted on October 09 labor. He labored through the night and on October 10 deliver spontaneously a infant. She recovered uneventfully. On October 11 patient was day number 1 and did well. She had routine, Vesicare Now on October 12 this patient's day number 2 and is doing well. She is ready for discharge. Her baby may not be discharge in which case mother will room in Discharge Diagnosis spontaneous vaginal delivery Secondary diagnoses are labor PP ROm Operations and procedures include monitoring, IV antibiotics, epidural, Pitocin augmentation of labor, spontaneous vaginal delivery Patient was given appropriate discharge instructions verbally and in writing and a copy those were placed in the chart. Discharge medications are Percocet and Motrin and Colace Clinical Quality Measures DVT/VTE Risk/Contraindication: Risk Factor Score Per Nursin RFS Level Per Nursing on Admit: 1=Low/No VTE PPX GEOFF CANNON MD Oct 12, 2017 8:03 am
[2017-10-12] MEDS: DOCUSATE SODIUM 100 MG (COLACE) CAP PO SCH (08:47)
[2017-10-12 08:55] VITALS: BP 100/68
== END 2017-10-12 11:00 | disposition home or self-care (01) | DRG 775 ==
LOC: LDRP 19:28 → WSo 19:28 → LDRP 19:52
PROVIDERS: ADMIT Obstetrics & Gynecology; ATTEND Obstetrics & Gynecology
PROC: 0HQ9XZZ Repair Perineum Skin, External Approach (ICD-10-PCS; principal; 2017-10-10)
PROC: 10E0XZZ Delivery of Products of Conception, External Approach (ICD-10-PCS; 2017-10-10)
DX: O42.013 Preterm premature rupture of membranes, onset of labor within 24 hours of rupture, third trimester (principal); O60.14X0 Preterm labor third trimester with preterm delivery third trimester, not applicable or unspecified; O99.824 Streptococcus B carrier state complicating childbirth; Z3A.35 35 weeks gestation of pregnancy; Z37.0 Single live birth; Z23 Encounter for immunization
CPT/HCPCS: 36415; 83033; 85025; 86850; 86900; 86901; 90715; 99212

== ENCOUNTER → 2018-09-08 | Outpatient (CLI) | payer OTHER ==
[~2018-09-08] MED LIST changes: +DOCU100C37 PO; +IBUP-1780 PO; -INDO25CA PO; +INDO25CA15 PO; +OXYC-465 PO
--- NOTE | 2018-09-08 16:17 | Diagnostic Imaging Report ---
INDICATION: Right ovarian cyst. Pelvic sonography is performed with transabdominal and transvaginal views. The uterus is anteverted and measures 7.9 x 5.0 x 4.3 cm. The endometrium measures 1 cm in thickness. Right ovary measures 4.4 x 3.4 x 1.6 cm and contains a relatively simple cyst measuring 3.5 x 2.7 x 3.9 cm. There is a trace of fluid adjacent to the right ovary. There is color flow to the right ovary. The left ovary measures 3.8 x 3.7 x 1.7 cm and appears normal. The left ovary contains color flow. IMPRESSION: 3.9 x 3.5 x 2.7 cm simple cyst in the right ovary with a small amount of adjacent free fluid. Normal-appearing left ovary. The uterus is anteverted but otherwise unremarkable. The endometrium appears mildly prominent but this may be due to menstrual phase in a patient of this age. Dictated by: Dictated on workstation # [id number]
== END ==
LOC: RAD 14:13
PROVIDERS: ATTEND Nurse Practitioner
DX: N83.201 Unspecified ovarian cyst, right side (principal)
CPT/HCPCS: 76830; 76856

== ENCOUNTER 2019-07-05 12:56 | Observation (INO) | payer OTHER ==
[~2019-07-05] VITALS: Ht 152 cm; Wt 57.7 kg
[2019-07-05] MEDS ORDERED: NS IV 1000 ML 1,000 ML IV ONE (13:12)
[2019-07-05 13:19] LABS: BASOPHILS % (AUTO) 0 % (0-10); EOSINOPHILS # (AUTO) 0.1 10^3/uL (0.0-0.3); EOSINOPHILS % (AUTO) 1 % (0-10); HEMATOCRIT 40 % (35-52); HEMOGLOBIN 14.1 G/DL (11.5-16.0); LYMPHOCYTES # (AUTO) 0.7 X 10^3 (1.0-4.0); LYMPHOCYTES % (AUTO) 6 % (12-44); MEAN CORPUSCULAR HEMOGLOBIN 29 PG (25-34); MEAN CORPUSCULAR HGB CONC 35 G/DL (32-36); MEAN CORPUSCULAR VOLUME 82 FL (80-99); MEAN PLATELET VOLUME 9.5 FL (7.4-10.4); MONOCYTES # (AUTO) 0.7 X 10^3 (0.0-1.0); MONOCYTES % (AUTO) 6 % (0-12); NEUTROPHILS # (AUTO) 9.1 X 10^3 (1.8-7.8); NEUTROPHILS % (AUTO) 86 % (42-75); PLATELET COUNT 228 10^3/uL (130-400); RED CELL DISTRIBUTION WIDTH 12.4 % (10.0-14.5); WHITE BLOOD COUNT 10.6 10^3/uL (4.3-11.0)
[2019-07-05] MEDS ORDERED: CITA40TA11 PO (13:20)
[2019-07-05] MEDS ORDERED: HYDR50TA76 PO (13:20)
[2019-07-05 13:38] LABS: ALANINE AMINOTRANSFERASE 13 U/L (0-55); ALBUMIN 4.5 GM/DL (3.2-4.5); ALKALINE PHOSPHATASE 43 U/L (40-136); BILIRUBIN,TOTAL 0.7 MG/DL (0.1-1.0); BUN/CREATININE RATIO 10; CARBON DIOXIDE 21 MMOL/L (21-32); CHLORIDE 105 MMOL/L (98-107); CREATININE SERUM 0.78 MG/DL (0.60-1.30); GFR ESTIMATED > 60; GLUCOSE 117 MG/DL (70-105); LIPASE 23 U/L (8-78); POTASSIUM 3.7 MMOL/L (3.6-5.0); SODIUM 135 MMOL/L (135-145); TOTAL PROTEIN 7.2 GM/DL (6.4-8.2)
[2019-07-05 13:46] LABS: BILIRUBIN,URINE NEGATIVE (NEGATIVE); CLARITY,URINE CLEAR; COLOR,URINE YELLOW; GLUCOSE, URINE (UA) NEGATIVE (NEGATIVE); KETONES,URINE NEGATIVE (NEGATIVE); LEUKOCYTE ESTERASE ,URINE NEGATIVE (NEGATIVE); NITRITE,URINE NEGATIVE (NEGATIVE); PROTEIN,URINE NEGATIVE (NEGATIVE)
[2019-07-05 14:01] LABS: BACTERIA,URINE NEGATIVE /HPF
[2019-07-05 14:07] LABS: BAND NEUTROPHILS 5 %; BASOPHILS % (MANUAL) 0 %; EOSINOPHILS % (MANUAL) 1 %; LYMPHOCYTES % (MANUAL) 11 %; MONOCYTES % (MANUAL) 5 %; NEUTROPHILS % (MANUAL) 78 %; RBC MORPH NORMAL
[2019-07-05] MEDS ORDERED: fentaNYL INJECTION 100 MCG/2 ML AMP ONE (14:27)
[2019-07-05] MEDS ORDERED: fentaNYL INJECTION 100 MCG/2 ML AMP IVP ONE (14:30)
--- NOTE | 2019-07-05 14:35 | NUR ---
HR 92 AT THIS X
--- NOTE | 2019-07-05 14:52 | Diagnostic Imaging Report ---
TECHNIQUE: Focused grayscale ultrasound of the right lower quadrant was performed to evaluate for acute appendicitis. COMPARISON: 06/29/2017. REASON FOR EXAM: Right lower quadrant and right pelvic pain. FINDINGS: Images of the right lower quadrant demonstrate no definite visualization of the appendix. However, no secondary signs of acute appendicitis are visualized. No evidence of free fluid is seen. Normal bowel is noted in the right lower quadrant. IMPRESSION: 1. Nonvisualization of the appendix in the right lower quadrant. However, no secondary signs of acute appendicitis are seen. Dictated by: Dictated on workstation # [id number]
--- NOTE | 2019-07-05 15:07 | Diagnostic Imaging Report ---
TECHNIQUE: Transvaginal ultrasound was performed of the uterus and bilateral adnexa. COMPARISON: 09/08/2018. INDICATION: Right pelvic pain. Positive beta hCG of 200. Last menstrual period 06/01/2019. FINDINGS: The uterus is anteverted and measures 8.6 x 5.3 x 4.6 cm. The endometrial stripe measures 1.2 cm that has a normal appearance. No evidence of intrauterine gestation is visualized. A small nabothian cyst is seen in the cervix.. The right ovary is well visualized measuring 3.7 x 3.2 x 3.2 cm and demonstrating normal color Doppler flow. A cyst is noted in the right ovary with irregular contour measuring 1.6 x 1.4 x 2.0 cm. The left ovary is not well-visualized due to overlying bowel gas. A cyst with possible debris is seen inferior to the right ovary measuring 4.4 x 2.8 x 3.4 cm. A small amount of free fluid is seen in the pelvis. IMPRESSION: 1. No evidence of intrauterine gestation at this time. Recommend serial beta hCG and follow-up pelvic ultrasound as indicated. 2. Cyst in the pelvis posterior to the right ovary with possible layering debris. This is nonspecific and attention on follow-up is recommended. 3. Cyst in the right ovary with irregular contours, which may represent collapsed corpus luteal cyst. The left ovary is not visualized due to overlying bowel gas. 4. Small amount of free fluid in the pelvis. Dictated by: Dictated on workstation # [id number]
--- NOTE | 2019-07-05 15:20 | ED Abdominal Pain ---
General Chief Complaint: Abdominal/GI Problems Stated Complaint: ABDOMINAL PAIN- Nursing Triage Note: PT SENT FROM [facility], PT IS APPROX 5 WEEKS AND IS HAVING R SIDE ABD PAIN SUDDEN ONSET THIS AM, PT HAS SL NAUSEA AT THIS X. HAS CRAMPING TYPE PAIN 5-/10. DENIES ANY VAGINAL BLEEDING AT THIS X Sepsis Screen: No Definite Risk Source of Information: Patient Exam Limitations: No Limitations History of Present Illness Date Seen by Provider: Jul 05, 2019 Time Seen by Provider: 13:05 Initial Comments This 24-year-old young lady at nearly 5 weeks gestational age with an LMP of June 01 presents to the emergency room as referred by [facility] for new diagnosis of and right lower quadrant pain. She's had an increase in nausea and vomiting. Temperature on arrival is 100.0 and she is tachycardic with a heart rate in the 120s. She has tenderness in the right lower quadrant. She just found out she is today. Dr. Rodgers is her provider. She has a creamy white vaginal discharge without odor, pain, or bleeding. She denies urinary symptoms. Allergies and Home Medications Allergies Coded Allergies: phenytoin (Unverified Allergy, Severe, ANAPHYLAXIS, 03/12/14) promethazine (Unverified Allergy, Intermediate, 03/12/14) Home Medications Citalopram Hydrobromide 40 Mg Tablet, 40 MG PO DAILY, (Reported) Patient Home Medication List Home Medication List Reviewed: Yes Review of Systems Review of Systems Constitutional: see HPI EENTM: No Symptoms Reported Respiratory: No Symptoms Reported Cardiovascular: See HPI Gastrointestinal: See HPI Genitourinary: See HPI Musculoskeletal: no symptoms reported Skin: no symptoms reported Psychiatric/Neurological: No Symptoms Reported Endocrine: No Symptoms Reported Hematologic/Lymphatic: No Symptoms Reported Past Gzttxfa-Ytzgne-Dodtul Hx Patient Social History Alcohol Use: Denies Use Recreational Drug Use: No Smoking Status: Never a Smoker 2nd Hand Smoke Exposure: No Recent Foreign Travel: No Contact w/Someone Who Travel: No Recent Infectious Disease Expo: No Recent Hopitalizations: No Physical Abuse: No Sexual Abuse: No Immunizations Up To Date Tetanus Booster (TDap): Less than 5yrs Seasonal Allergies Seasonal Allergies: No Past Medical History Surgeries: Yes Adenoidectomy, Gallbladder, Tonsillectomy Respiratory: No Cardiac: Yes Palpitations Neurological: Yes (HX SEIZURES as child) : Yes Last Menstrual Period: Jun 01, 2019 Reproductive Disorders: No Sexually Transmitted Disease: No HIV/AIDS: No Genitourinary: No Gastrointestinal: Yes Gall Bladder Disease Musculoskeletal: No Endocrine: No HEENT: No Cancer: No Psychosocial: Yes ADD/ADHD, Anxiety, Depression Integumentary: No Blood Disorders: No Family Medical History Reviewed Nursing Family Hx Cervical cancer G8 SISTER Congenital heart disease G8 BROTHER G8 BROTHER FH: depression 19 MOTHER FH: thyroid cancer G8 SISTER Hypercholesterolemia 19 MOTHER Hypertension 19 FATHER Seizure disorder G8 BROTHER G8 BROTHER Thyroid disease 19 MOTHER Physical Exam Vital Signs Vital Signs - First Documented 07/05/19 13:10 Temp 37.8 Pulse 124 Resp 18 B/P (MAP) 126/80 (95) Pulse Ox 100 Capillary Refill : Less Than 3 Seconds Height/Weight/BMI Height: 5'0.00" Weight: 153lbs. 0.0oz. [id number]; 23.00 BMI Method:Stated General Appearance: WD/WN, other (appears mildly uncomfortable) HEENT: PERRL/EOMI, normal ENT inspection, pharynx normal Neck: normal inspection Respiratory: lungs clear, normal breath sounds, no respiratory distress, no accessory muscle use Cardiovascular: no edema, no murmur, tachycardia Gastrointestinal: normal bowel sounds, soft, tenderness (suprapubic region and right lower quadrant), other (positive Rovsing. Negative obturator and psoas.) Extremities: normal inspection, no pedal edema Pelvic: normal external exam, normal adnexa, no cerv. motion tender, no masses, other (small clumpy white discharge. No vaginal blood) Neurologic/Psychiatric: manager application development II-XII nml as tested, no motor/sensory deficits, alert, normal mood/affect, oriented x 3 Skin: normal color, warm/dry Progress/Results/Core Measures Results/Orders Lab Results Laboratory Tests Test 07/05/19 13:10 07/05/19 13:25 07/05/19 14:35 Range/Units White Blood Count 10.6 4.3-11.0 10^3/uL Red Blood Count 4.94 4.35-5.85 10^6/uL Hemoglobin 14.1 11.5-16.0 G/DL Hematocrit 40 35-52 % Mean Corpuscular Volume 82 80-99 FL Mean Corpuscular Hemoglobin 29 25-34 PG Mean Corpuscular Hemoglobin Concent 35 32-36 G/DL Red Cell Distribution Width 12.4 10.0-14.5 % Platelet Count 228 130-400 10^3/uL Mean Platelet Volume 9.5 7.4-10.4 FL Neutrophils (%) (Auto) 86 H 42-75 % Lymphocytes (%) (Auto) 6 L 12-44 % Monocytes (%) (Auto) 6 0-12 % Eosinophils (%) (Auto) 1 0-10 % Basophils (%) (Auto) 0 0-10 % Neutrophils # (Auto) 9.1 H 1.8-7.8 X 10^3 Lymphocytes # (Auto) 0.7 L 1.0-4.0 X 10^3 Monocytes # (Auto) 0.7 0.0-1.0 X 10^3 Eosinophils # (Auto) 0.1 0.0-0.3 10^3/uL Basophils # (Auto) 0.0 0.0-0.1 10^3/uL Neutrophils % (Manual) 78 % Lymphocytes % (Manual) 11 % Monocytes % (Manual) 5 % Eosinophils % (Manual) 1 % Basophils % (Manual) 0 % Band Neutrophils 5 % Blood Morphology Comment NORMAL Sodium Level 135 135-145 MMOL/L Potassium Level 3.7 3.6-5.0 MMOL/L Chloride Level 105 98-107 MMOL/L Carbon Dioxide Level 21 21-32 MMOL/L Anion Gap 9 5-14 MMOL/L Blood Urea Nitrogen 8 7-18 MG/DL Creatinine 0.78 0.60-1.30 MG/DL Estimat Glomerular Filtration Rate > 60 BUN/Creatinine Ratio 10 Glucose Level 117 H 70-105 MG/DL Calcium Level 9.0 8.5-10.1 MG/DL Corrected Calcium 8.6 8.5-10.1 MG/DL Total Bilirubin 0.7 0.1-1.0 MG/DL Aspartate Amino Transf (AST/SGOT) 17 5-34 U/L Alanine Aminotransferase (ALT/SGPT) 13 0-55 U/L Alkaline Phosphatase 43 40-136 U/L C-Reactive Protein High Sensitivity 0.19 0.00-0.50 MG/DL Total Protein 7.2 6.4-8.2 GM/DL Albumin 4.5 3.2-4.5 GM/DL Lipase 23 8-78 U/L Human Chorionic Gonadotropin, Quant 203 H <5 MIU/ML Urine Color YELLOW Urine Clarity CLEAR Urine pH 6.0 5-9 Urine Specific [place] >=1.030 1.016-1.022 Urine Protein NEGATIVE NEGATIVE Urine Glucose (UA) NEGATIVE NEGATIVE Urine Ketones NEGATIVE NEGATIVE Urine Nitrite NEGATIVE NEGATIVE Urine Bilirubin NEGATIVE NEGATIVE Urine Urobilinogen 0.2 < = 1.0 MG/DL Urine Leukocyte Esterase NEGATIVE NEGATIVE Urine RBC (Auto) TRACE-I NEGATIVE Urine RBC 2-5 H /HPF Urine WBC NONE /HPF Urine Squamous Epithelial Cells 2-5 /HPF Urine Crystals NONE /LPF Urine Bacteria NEGATIVE /HPF Urine Casts NONE /LPF Urine Mucus SMALL H /LPF Urine Culture Indicated NO Micro Results Microbiology 07/05/19 Genital Culture, Resulted Pending 07/05/19 JUANI Preparation - Final, Resulted 07/05/19 Wet Prep - Final, Resulted My Orders Orders - ARMAAN JAMES MD Hs C Reactive Protein (07/05/19 13:11) Lipase (07/05/19 13:11) Ed Iv/Invasive Line Start (07/05/19 13:12) Ns Iv 1000 Ml (Sodium Chloride 0.9%) (07/05/19 13:12) Us Appendix [id number] (07/05/19 13:12) Us Ob Transvaginal [id number] (07/05/19 13:12) Wet Prep (07/05/19 14:15) Neisseria Gonorrhea Swab (07/05/19 14:15) Genital Culture (07/05/19 14:15) Juani Prep (07/05/19 14:15) Chlamydia Trachomatis Swab (07/05/19 14:15) Fentanyl Injection (Sublimaze Injection (07/05/19 14:30) Fentanyl Injection (Sublimaze Injection (07/05/19 14:27) Medications Given in ED Current Medications Medications Dose Ordered Sig/Brice Route Start Time Stop Time Status Last Admin Dose Admin Fentanyl Citrate 50 mcg ONCE ONCE IVP 07/05/19 14:30 07/05/19 14:33 DC 07/05/19 14:31 50 MCG Sodium Chloride 1,000 ml @ 0 mls/hr Q0M ONCE IV 07/05/19 13:12 07/05/19 13:14 DC 07/05/19 13:25 1,000 MLS/HR Vital Signs/I&O 07/05/19 13:10 Temp 37.8 Pulse 124 Resp 18 B/P (MAP) 126/80 (95) Pulse Ox 100 Blood Pressure Mean: 95 POS Progress Progress Note : Progress Note Patient was hydrated with a liter of IV fluid. This did improve her heart rate. She initially declined pain medication but eventually requested treatment as pain increased. She was given fentanyl 50 g with good results. Initial workup was relatively unremarkable. Pelvic exam was then added to the workup. Pelvic exam was unremarkable except for tenderness in the right adnexa. There is no cervical motion tenderness or inflammation. Ultrasound revealed no intrauterine contents. No ectopic could be identified either. Patient's right lower quadrant pain could be from cystic findings on ultrasound. However, I cannot guarantee her pain is not from appendicitis or ectopic . This c oncerns me somewhat especially given the temperature of 100.0 and the tachycardia upon presentation. I am recommending close follow-up versus admission. I discussed the case with Dr. Rodgers who stated close follow-up with an obstetrical provider could not be secured in the clinic until next week. Therefore we are admitting for observation. Diagnostic Imaging Diagonstic Imaging: Ultrasound Plain Films/CT/US/NM/MRI: other (appendix) Comments Ultrasound discussed with the tissue recovery technician and report reviewed. See report below: NAME: SUSAN HADDAD [facility] REC#: [id number] PT STATUS: REG ER : 1995 PHYSICIAN: ARMAAN JAMES MD ADMIT DATE: 07/05/19/ER Signed Date of Exam:07/05/19 US APPENDIX [id number] TECHNIQUE: Focused grayscale ultrasound of the right lower quadrant was performed to evaluate for acute appendicitis. COMPARISON: 06/29/2017. REASON FOR EXAM: Right lower quadrant and right pelvic pain. FINDINGS: Images of the right lower quadrant demonstrate no definite visualization of the appendix. However, no secondary signs of acute appendicitis are visualized. No evidence of free fluid is seen. Normal bowel is noted in the right lower quadrant. IMPRESSION: 1. Nonvisualization of the appendix in the right lower quadrant. However, no secondary signs of acute appendicitis are seen. Dictated by: Dictated on workstation # [id number] Dict: 07/05/19 1448 Trans: 07/05/19 1522 [id number] Interpreted by: JOANN GARZA DO Electronically signed by: JOANN GARZA DO 07/05/19 1522 Diagonstic Imaging: Ultrasound Plain Films/CT/US/NM/MRI: pelvis Comments Pelvic ultrasound discussed with tissue recovery technician and report reviewed. See report below: NAME: SUSAN HADDAD [facility] REC#: [id number] PT STATUS: REG ER : 1995 PHYSICIAN: ARMAAN JAMES MD ADMIT DATE: 07/05/19/ER Signed Date of Exam:07/05/19 US OB TRANSVAGINAL [id number] TECHNIQUE: Transvaginal ultrasound was performed of the uterus and bilateral adnexa. COMPARISON: 09/08/2018. INDICATION: Right pelvic pain. Positive beta hCG of 200. Last menstrual period 06/01/2019. FINDINGS: The uterus is anteverted and measures 8.6 x 5.3 x 4.6 cm. The endometrial stripe measures 1.2 cm that has a normal appearance. No evidence of intrauterine gestation is visualized. A small nabothian cyst is seen in the cervix.. The right ovary is well visualized measuring 3.7 x 3.2 x 3.2 cm and demonstrating normal color Doppler flow. A cyst is noted in the right ovary with irregular contour measuring 1.6 x 1.4 x 2.0 cm. The left ovary is not well-visualized due to overlying bowel gas. A cyst with possible debris is seen inferior to the right ovary measuring 4.4 x 2.8 x 3.4 cm. A small amount of free fluid is seen in the pelvis. IMPRESSION: 1. No evidence of intrauterine gestation at this time. Recommend serial beta hCG and follow-up pelvic ultrasound as indicated. 2. Cyst in the pelvis posterior to the right ovary with possible layering debris. This is nonspecific and attention on follow-up is recommended. 3. Cyst in the right ovary with irregular contours, which may represent collapsed corpus luteal cyst. The left ovary is not visualized due to overlying bowel gas. 4. Small amount of free fluid in the pelvis. Dictated by: Dictated on workstation # [id number] Dict: 07/05/19 1451 Trans: 07/05/19 1522 [facility] [id number] Interpreted by: JOANN GARZA DO Electronically signed by: JOANN GARZA DO 07/05/19 1522 Departure Communication (Admissions) Time/Spoke to Admitting Phy: 03:21 Dr. Rodgers Impression Primary Impression: Right lower quadrant pain Additional Impression: Qualified Codes: Z3A.01 - Less than 8 weeks gestation of Disposition: ADMITTED INPATIENT Condition: Improved Admissions Decision to Admit Reason: Admit from ER (General) Decision to Admit/Date: Jul 05, 2019 Time/Decision to Admit Time: 03:21 Departure-Patient Inst. Referrals: KOBY RODGERS MD (PCP/Family) Primary Care Physician Copy Copies To 1: KOBY RODGERS MD, JOSHUA T MD Jul 05, 2019 15:20 POS
[2019-07-05 16:15] VITALS: BP 101/59
[2019-07-05 16:23] VITALS: BP 101/59
[2019-07-05] MEDS ORDERED: ACETAMINOPHEN 325 MG TABLET PO PRN (16:30)
[2019-07-05] MEDS ORDERED: CATHETER FLUSH 10 ML SYR IV PRN (16:30)
--- NOTE | 2019-07-05 16:30 | NUR ---
SUSAN HADDAD admitted to room 411-1, with an admitting diagnosis of and R lower quad pain, on 07/05/19 from ED via wheelchair, accompanied by staff. SUSAN HADDAD introduced to surroundings, call light, bed controls, phone, TV, temperature control, lights, meal times, smoking policy, visitor policy, side rail policy, bathrooms and showers. Patient Rights given to patient in the handbook. SUSAN HADDAD verbalizes understanding that [facility] is not responsible for the loss or damage to any personal effects or valuables that are kept in the patients possession during their hospitalization. The following Patient Care Plans were discussed with the patient: Discharge Planning, pain management,dehydration, and medications. SUSAN HADDAD verbalizes understanding of Interdisciplinary Patient Education. Patient and/or family were informed about the Rapid Response Team and its purpose.
[2019-07-05] MEDS: NS IV 1000 ML 1,000 ML IV SCH (17:38)
[2019-07-05 20:05] VITALS: BP 103/58
[2019-07-05] MEDS ORDERED: fentaNYL INJECTION 100 MCG/2 ML AMP IVP PRN (20:15)
[2019-07-06 00:01] VITALS: BP 99/54
[2019-07-06] MEDS: NS IV 1000 ML 1,000 ML IV SCH (03:41)
[2019-07-06 03:53] VITALS: BP 92/50
[2019-07-06 04:57] LABS: BASOPHILS % (AUTO) 0 % (0-10); EOSINOPHILS % (AUTO) 1 % (0-10); HEMATOCRIT 34 % (35-52); HEMOGLOBIN 11.3 G/DL (11.5-16.0); LYMPHOCYTES # (AUTO) 0.9 X 10^3 (1.0-4.0); LYMPHOCYTES % (AUTO) 23 % (12-44); MEAN CORPUSCULAR HEMOGLOBIN 28 PG (25-34); MEAN CORPUSCULAR HGB CONC 34 G/DL (32-36); MEAN CORPUSCULAR VOLUME 84 FL (80-99); MEAN PLATELET VOLUME 9.9 FL (7.4-10.4); MONOCYTES # (AUTO) 0.6 X 10^3 (0.0-1.0); MONOCYTES % (AUTO) 14 % (0-12); NEUTROPHILS # (AUTO) 2.5 X 10^3 (1.8-7.8); NEUTROPHILS % (AUTO) 62 % (42-75); PLATELET COUNT 181 10^3/uL (130-400); RED CELL DISTRIBUTION WIDTH 12.1 % (10.0-14.5); WHITE BLOOD COUNT 4.1 10^3/uL (4.3-11.0)
[2019-07-06 08:00] VITALS: BP 104/61
[2019-07-06] MEDS ORDERED: HYDR-700 PO ×2 (08:43→08:47)
[2019-07-06] MEDS ORDERED: IBUP-30 PO (08:47)
[2019-07-06] MEDS ORDERED: CALC-781 PO (08:47)
[2019-07-06] MEDS ORDERED: ACET-2267 PO (08:47)
--- NOTE | 2019-07-06 08:48 | NUR ---
SPOKE WITH THE PATIENT ABOUT HER MEDICATIONS. SHE HAD THEM IN THE LOCK UP DRAWER. [facility] FILLED: 07-01-19 CITALOPRAM 40MG DAILY 07-01-19 HYDROXYZINE HCL 25MG Q12 (TAKES 1 AM PRN AND 1 HS SCHEDULED) 06-28-19 CITALOPRAM 20MG (INCREASED TO 40MG) SHE STATES SHE ALSO TAKES A CHEWABLE ANTACID OTC NEEDED WELL TYLENOL AND IBU PRN.
[2019-07-06] MEDS ORDERED: METR70GE5 VG (08:52)
--- NOTE | 2019-07-06 08:55 | Short Stay Summary ---
HPI History of Present Illness: This is a 24 yo who presented to ED with complaints of onset of RLQ abdominal pain at 3am. Pt reports sharp pains which have been intermittent. Pt reports history of ovarian cysts and reports pain is similar to what she has experienced before. Pt denies n/v, has had diarrhea since admission. Tmax reported 100.1. Pt was found to have positive preg test in the ED with quant of approx 200. LMP 06/01/19. Denies vaginal bleeding. PT reports improvement since admission, now only c/o mild soreness. Source: patient Exam Limitations: no limitations Date seen by provider: Jul 06, 2019 Time Seen by Provider: 09:00 Attending Physician Lizzeth Kathleen MD PCP Lizzeth Kathleen MD Consult Date of Admission Jul 05, 2019 at 15:30 Home Medications Home Medications Reviewed patient Home Medication Reconciliation performed by pharmacy medication reconciliations production technician and/or nursing. Patients Allergies have been reviewed. Allergies Coded Allergies: phenytoin (Unverified Allergy, Severe, ANAPHYLAXIS, 03/12/14) promethazine (Unverified Allergy, Intermediate, 03/12/14) DWT-Twlidn-Ajhssz Hx Patient Social History Alcohol Use: Denies Use Recreational Drug Use: No Smoking Status: Never a Smoker 2nd Hand Smoke Exposure: No Recent Foreign Travel: No Contact w/other who traveled: No Recent Hopitalizations: No Recent Infectious Disease Expo: No Immunizations Up To Date Tetanus Booster (TDap): Less than 5yrs Past Medical History hx of epilepsy currently untreated hx of heart murmur hx of GDM/pre-diabetes Depression/Anxiety PSH: T&A gallbladder Family Medical History Family History: Cervical cancer G8 SISTER Congenital heart disease G8 BROTHER G8 BROTHER FH: depression 19 MOTHER FH: thyroid cancer G8 SISTER Hypercholesterolemia 19 MOTHER Hypertension 19 FATHER Seizure disorder G8 BROTHER G8 BROTHER Thyroid disease 19 MOTHER Review of Systems ([facility]) Constitutional: see HPI Reviewed Test Results Reviewed Test Results Lab Laboratory Tests 07/05/19 13:10: White Blood Count 10.6, Red Blood Count 4.94, Hemoglobin 14.1, Hematocrit 40, Mean Corpuscular Volume 82, Mean Corpuscular Hemoglobin 29, Mean Corpuscular Hemoglobin Concent 35, Red Cell Distribution Width 12.4, Platelet Count 228, Mean Platelet Volume 9.5, Neutrophils (%) (Auto) 86H, Lymphocytes (%) (Auto) 6L, Monocytes (%) (Auto) 6, Eosinophils (%) (Auto) 1, Basophils (%) (Auto) 0, Neutrophils # (Auto) 9.1H, Lymphocytes # (Auto) 0.7L, Monocytes # (Auto) 0.7, Eosinophils # (Auto) 0.1, Basophils # (Auto) 0.0, Neutrophils % (Manual) 78, Lymphocytes % (Manual) 11, Monocytes % (Manual) 5, Eosinophils % (Manual) 1, Basophils % (Manual) 0, Band Neutrophils 5, Blood Morphology Comment NORMAL, Sodium Level 135, Potassium Level 3.7, Chloride Level 105, Carbon Dioxide Level 21, Anion Gap 9, Blood Urea Nitrogen 8, Creatinine 0.78, Estimat Glomerular Filtration Rate > 60, BUN/Creatinine Ratio 10, Glucose Level 117H, Calcium Level 9.0, Corrected Calcium 8.6, Total Bilirubin 0.7, Aspartate Amino Transf (AST/SGOT) 17, Alanine Aminotransferase (ALT/SGPT) 13, Alkaline Phosphatase 43, C-Reactive Protein High Sensitivity 0.19, Total Protein 7.2, Albumin 4.5, Lipase 23, Human Chorionic Gonadotropin, Quant 203H 07/05/19 13:25: Urine Color YELLOW, Urine Clarity CLEAR, Urine pH 6.0, Urine Specific [place] >=1.030, Urine Protein NEGATIVE, Urine Glucose (UA) NEGATIVE, Urine Ketones NEGATIVE, Urine Nitrite NEGATIVE, Urine Bilirubin NEGATIVE, Urine Urobilinogen 0.2, Urine Leukocyte Esterase NEGATIVE, Urine RBC (Auto) TRACE-I, Urine RBC 2- 5H, Urine WBC NONE, Urine Squamous Epithelial Cells 2-5, Urine Crystals NONE, Urine Bacteria NEGATIVE, Urine Casts NONE, Urine Mucus SMALLH, Urine Culture Indicated NO 07/05/19 14:35: Chlamydia DNA Probe Not Detected, Neisseria gonorrhoeae DNA Probe Not Detected 07/06/19 04:25: White Blood Count 4.1L, Red Blood Count 4.00L, Hemoglobin 11.3L, Hematocrit 34L, Mean Corpuscular Volume 84, Mean Corpuscular Hemoglobin 28, Mean Corpuscular Hemoglobin Concent 34, Red Cell Distribution Width 12.1, Platelet Count 181, Mean Platelet Volume 9.9, Neutrophils (%) (Auto) 62, Lymphocytes (%) (Auto) 23, Monocytes (%) (Auto) 14H, Eosinophils (%) (Auto) 1, Basophils (%) (Auto) 0, Neutrophils # (Auto) 2.5, Lymphocytes # (Auto) 0.9L, Monocytes # (Auto) 0.6, Eosinophils # (Auto) 0.0, Basophils # (Auto) 0.0, Serum Test, Qualitative POSITIVE Microbiology 07/05/19 Genital Culture - Preliminary, Resulted Culture In Progress 07/05/19 JUANI Preparation - Final, Resulted 07/05/19 Wet Prep - Final, Resulted Radiology Date of Exam:07/05/19 US OB TRANSVAGINAL [id number] TECHNIQUE: Transvaginal ultrasound was performed of the uterus and bilateral adnexa. COMPARISON: 09/08/2018. INDICATION: Right pelvic pain. Positive beta hCG of 200. Last menstrual period 06/01/2019. FINDINGS: The uterus is anteverted and measures 8.6 x 5.3 x 4.6 cm. The endometrial stripe measures 1.2 cm that has a normal appearance. No evidence of intrauterine gestation is visualized. A small nabothian cyst is seen in the cervix.. The right ovary is well visualized measuring 3.7 x 3.2 x 3.2 cm and demonstrating normal color Doppler flow. A cyst is noted in the right ovary with irregular contour measuring 1.6 x 1.4 x 2.0 cm. The left ovary is not well-visualized due to overlying bowel gas. A cyst with possible debris is seen inferior to the right ovary measuring 4.4 x 2.8 x 3.4 cm. A small amount of free fluid is seen in the pelvis. IMPRESSION: 1. No evidence of intrauterine gestation at this time. Recommend serial beta hCG and follow-up pelvic ultrasound as indicated. 2. Cyst in the pelvis posterior to the right ovary with possible layering debris. This is nonspecific and attention on follow-up is recommended. 3. Cyst in the right ovary with irregular contours, which may represent collapsed corpus luteal cyst. The left ovary is not visualized due to overlying bowel gas. 4. Small amount of free fluid in the pelvis. US APPENDIX [id number] TECHNIQUE: Focused grayscale ultrasound of the right lower quadrant was performed to evaluate for acute appendicitis. COMPARISON: 06/29/2017. REASON FOR EXAM: Right lower quadrant and right pelvic pain. FINDINGS: Images of the right lower quadrant demonstrate no definite visualization of the appendix. However, no secondary signs of acute appendicitis are visualized. No evidence of free fluid is seen. Normal bowel is noted in the right lower quadrant. IMPRESSION: 1. Nonvisualization of the appendix in the right lower quadrant. However, no secondary signs of acute appendicitis are seen. Physical Exam-([facility]) Physical Exam Vital Signs VS - Last 72 Hours, by Label POS 07/05/19 07/05/19 07/05/19 07/05/19 13:10 16:08 16:15 16:23 Temp 37.8 37.1 36.8 36.8 Pulse 124 88 90 90 Resp 18 18 16 16 B/P (MAP) 126/80 (95) 118/60 (95) 101/59 (73) 101/59 Pulse Ox 100 100 98 98 O2 Delivery Room Air Room Air 07/05/19 07/05/19 07/05/19 07/06/19 17:16 20:00 20:05 00:01 Temp 37.4 37.2 Pulse 86 76 Resp 16 16 B/P (MAP) 103/58 (73) 99/54 (69) Pulse Ox 97 97 97 O2 Delivery Room Air Room Air Room Air Room Air 07/06/19 07/06/19 03:53 08:00 Temp 36.8 36.1 Pulse 72 102 Resp 18 16 B/P (MAP) 92/50 (64) 104/61 (75) Pulse Ox 97 98 O2 Delivery Room Air Room Air Capillary Refill : Less Than 3 Seconds General Appearance: no apparent distress Respiratory: lungs clear, normal breath sounds, no respiratory distress, no accessory muscle use Cardiovascular: regular rate, rhythm, no edema, no murmur Gastrointestinal: soft; No guarding, No rebound; tenderness (mild TTP RLQ) Extremities: no pedal edema Neurologic/Psychiatric: alert, normal mood/affect, oriented x 3 Skin: normal color, warm/dry Short Stay Diagnosis Discharge Diagnosis-Short Stay Admission Diagnosis 1. RLQ abdominal Pain 2. Ovarian cysts R 3. 5 week Final Discharge Diagnosis see Problem List Conclusion Plan see problem list Clinical Quality Measures DVT/VTE Risk/Contraindication: RFS Level Per Nursing on Admit: 0=No Risk/No VTE PPX Assessment/Plan Assessment/Plan Admission Status: Observation (1) Right lower quadrant pain Status: Acute Assessment & Plan: likely secondary to ovarian cysts - pain improved - plan to DC home and f/u with Dr. Kathleen as OP - order given for OP repeat quant HCG to follow rise; can repeat when quant adequately rises - recommend starting PNV, may continue other home meds at this time (2) Ovarian cyst affecting in first trimester, antepartum (3) Bacterial vaginosis in Assessment & Plan: - clue cells noted on JUANI; rx given for MetroGel x5d GUILLERMINA CUTLER DO Jul 06, 2019 08:55 POS
[2019-07-06 11:08] VITALS: BP 104/61
== END 2019-07-06 08:45 | disposition home or self-care (01) ==
LOC: EDUNIT# 12:56 → ER 12:59 → UNDOADMOB 15:30 → 4TH 15:30 → UNDODISOB 07-06 11:08
PROVIDERS: ADMIT Family Medicine; ATTEND Family Medicine
DX: O26.891 Other specified pregnancy related conditions, first trimester (principal); O21.9 Vomiting of pregnancy, unspecified; O99.341 Other mental disorders complicating pregnancy, first trimester; O34.81 Maternal care for other abnormalities of pelvic organs, first trimester; N77.1 Vaginitis, vulvitis and vulvovaginitis in diseases classified elsewhere; N83.201 Unspecified ovarian cyst, right side; R10.31 Right lower quadrant pain; F32.9 Major depressive disorder, single episode, unspecified; F41.9 Anxiety disorder, unspecified; Z3A.01 Less than 8 weeks gestation of pregnancy; Z79.899 Other long term (current) drug therapy; Z90.89 Acquired absence of other organs; Z90.49 Acquired absence of other specified parts of digestive tract; Z80.49 Family history of malignant neoplasm of other genital organs; Z82.49 Family history of ischemic heart disease and other diseases of the circulatory system
CPT/HCPCS: 36415; 76705; 76817; 80053; 81000; 83690; 84702; 84703; 85007; 85025; 85027; 86141; 87070; 87205; 87210; 87491; 87591; 96361; 96374; G0378

== ENCOUNTER → 2019-07-08 | Outpatient (CLI) | payer OTHER ==
[~2019-07-08] MED LIST changes: +ACET-2267 PO; +CALC-781 PO; +CITA40TA11 PO; +HYDR-700 PO; +HYDR50TA76 PO; +IBUP-30 PO; +METR70GE5 VG
== END ==
LOC: LAB 13:35
PROVIDERS: ATTEND Family Medicine
DX: O34.81 Maternal care for other abnormalities of pelvic organs, first trimester (principal); Z3A.00 Weeks of gestation of pregnancy not specified
CPT/HCPCS: 36415; 84702

== ENCOUNTER 2019-10-01 12:30 | Emergency (ER) | payer OTHER ==
[~2019-10-01] VITALS: Ht 152 cm; Wt 58.0 kg
[~2019-10-01 12:30] MED LIST changes: -INDO25CA15 PO; +INDO25CA99 PO
[2019-10-01 13:09] LABS: BILIRUBIN,URINE NEGATIVE (NEGATIVE); CLARITY,URINE SL CLOUDY; COLOR,URINE YELLOW; GLUCOSE, URINE (UA) NEGATIVE (NEGATIVE); KETONES,URINE NEGATIVE (NEGATIVE); LEUKOCYTE ESTERASE ,URINE NEGATIVE (NEGATIVE); NITRITE,URINE NEGATIVE (NEGATIVE); PROTEIN,URINE NEGATIVE (NEGATIVE)
--- NOTE | 2019-10-01 13:19 | ED GU-Female ---
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 STATES HAS HAD LABOR W OTHER PREGNANCIES. DENIES SX OF UTI, DENIES VAGINAL DISCHARGE OR LEAKING Nursing Sepsis Screen: No Definite Risk Source: patient Exam Limitations: no limitations History of Present Illness Date Seen by Provider: Oct 01, 2019 Time Seen by Provider: 12:48 Initial Comments Here with report of intermittent low abdominal contractions starting 2 hours ago. She states that she's approximate 17 weeks' . This is her fourth and 2 previous pregnancies had labor very similar. Denies vaginal bleeding. She has had a little bit increased vaginal discharge. States it's typical discharge though. Has had problems with urinary tract infections. She is group B positive and just completed antibiotics for that. Denies diarrhea. Denies any recent injury. She does admit to recent sexual activity. Timing/Duration: this morning, intermittent Severity/Quality: moderate, cramping Location: suprapubic Radiation: none Activities at Onset: none Associated Symptoms: abdominal pain; No dysuria, No lower back pain, No nausea/vomiting, No urinary frequency Allergies and Home Medications Allergies Coded Allergies: phenytoin (Unverified Allergy, Severe, ANAPHYLAXIS, 03/12/14) promethazine (Unverified Allergy, Intermediate, 03/12/14) Patient Home Medication List Home Medication List Reviewed: Yes Review of Systems Review of Systems Constitutional: see HPI; No chills, No fever EENTM: no symptoms reported Respiratory: no symptoms reported Cardiovascular: no symptoms reported Gastrointestinal: abdominal pain; No nausea, No vomiting Genitourinary: see HPI : Yes Expected Date of Delivery: Mar 07, 2020 Musculoskeletal: no symptoms reported Past Xlykavh-Leqzqn-Pheiio Hx Past Med/Social Hx: Reviewed Nursing Past Med/Soc Hx Patient Social History Alcohol Use: Denies Use Recreational Drug Use: No Smoking Status: Never a Smoker 2nd Hand Smoke Exposure: No Recent Foreign Travel: No Contact w/Someone Who Travel: No Recent Infectious Disease Expo: No Recent Hopitalizations: No Immunizations Up To Date Tetanus Booster (TDap): Less than 5yrs Seasonal Allergies Seasonal Allergies: No Past Medical History Surgeries: Yes Adenoidectomy, Gallbladder, Tonsillectomy Respiratory: No Cardiac: Yes Palpitations Neurological: Yes (HX SEIZURES as child) : Yes Expected Date of Delivery: Mar 07, 2020 Last Menstrual Period: May 25, 2019 Hx : 4 Hx Para: 2 Hx Total # of Abortions (Sp): 1 Reproductive Disorders: No Sexually Transmitted Disease: No HIV/AIDS: No Genitourinary: No Gastrointestinal: Yes Gall Bladder Disease Musculoskeletal: No Endocrine: No HEENT: No Cancer: No Psychosocial: Yes ADD/ADHD, Anxiety, Depression Integumentary: No Blood Disorders: No Family Medical History Reviewed Nursing Family Hx Cervical cancer G8 SISTER Congenital heart disease G8 BROTHER G8 BROTHER FH: depression 19 MOTHER FH: thyroid cancer G8 SISTER Hypercholesterolemia 19 MOTHER Hypertension 19 FATHER Seizure disorder G8 BROTHER G8 BROTHER Thyroid disease 19 MOTHER Physical Exam Vital Signs Vital Signs - First Documented 10/01/19 12:35 Temp 36.7 Pulse 71 Resp 18 B/P (MAP) 126/75 (92) Pulse Ox 100 Capillary Refill : Less Than 3 Seconds Height, Weight, BMI Height: 5'0.00" Weight: 153lbs. 0.0oz. [id number]; 25.00 BMI Method:Stated General Appearance: WD/WN, no apparent distress HEENT: PERRL/EOMI, pharynx normal Cardiovascular: regular rate, rhythm, no murmur Respiratory: lungs clear, normal breath sounds Gastrointestinal: non tender, soft, other (gravid uterus below umbilicus) Neurologic/Psychiatric: alert, oriented x 3 Skin: normal color, warm/dry Progress/Results/Core Measures Suspected Sepsis Recent Fever Within 48 Hours: No Infection Criteria Present: None New/Unexplained Altered Menta: No Sepsis Screen: No Definite Risk SIRS Temperature: Pulse: 71 Respiratory Rate: 18 Blood Pressure 126 /75 Mean: 92 Results/Orders Lab Results Laboratory Tests Test 10/01/19 12:45 Range/Units Urine Color YELLOW Urine Clarity SL CLOUDY Urine pH 7.0 5-9 Urine Specific [place] 1.015 L 1.016-1.022 Urine Protein NEGATIVE NEGATIVE Urine Glucose (UA) NEGATIVE NEGATIVE Urine Ketones NEGATIVE NEGATIVE Urine Nitrite NEGATIVE NEGATIVE Urine Bilirubin NEGATIVE NEGATIVE Urine Urobilinogen 0.2 < = 1.0 MG/DL Urine Leukocyte Esterase NEGATIVE NEGATIVE Urine RBC (Auto) 2+ H NEGATIVE Urine RBC 10-20 /HPF Urine WBC NONE /HPF Urine Squamous Epithelial Cells 2-5 /HPF Urine Crystals PRESENT H /LPF Urine Amorphous Sediment FEW SADIQ URATES H /LPF Urine Bacteria TRACE /HPF Urine Casts NONE /LPF Urine Mucus NEGATIVE /LPF Urine Culture Indicated NO My Orders Orders - ELY MATAMOROS MD Ua Culture If Indicated (10/01/19 13:02) Urine Culture (10/01/19 14:29) Vital Signs/I&O 10/01/19 12:35 Temp 36.7 Pulse 71 Resp 18 B/P (MAP) 126/75 (92) Pulse Ox 100 Capillary Refill : Less Than 3 Seconds Blood Pressure Mean: 92 Progress Note : Progress Note Seen and evaluated. Bedside ultrasound performed by me which shows intrauterine with positive movement and heart tones of 150. UA ordered. Monitor patient. 1435: I have discussed the case with Dr. Valera. We will have patient do pelvic rest and be off work until Thursday when she will follow-up with Dr. Kathleen. Contractions have stopped. UA noted. There is a small amount of blood topically but no obvious infection. We will go ahead and send for culture. Discharged home with return precautions. Patient verbalize understanding instructions and agreement with plan. Departure Impression Primary Impression: Threatened miscarriage Additional Impression: related abdominal pain of lower quadrant, antepartum Disposition: HOME, SELF-CARE Condition: Improved Departure-Patient Inst. Decision time for Depature: 14:36 Referrals: KOBY KATHLEEN MD (PCP/Family) Primary Care Physician Patient Instructions: Threatened Miscarriage (DC) Add. Discharge Instructions: All discharge instructions reviewed with patient and/or family. Voiced u nderstanding. Follow-up with Dr. Kathleen on Thursday. Pelvic rest until cleared by Dr. Kathleen. Drink plenty of fluids and get plenty or rest. No lifting. Off work until seen by Dr. Kathleen. Return for worse pain, bleeding, weakness or other concerns as needed. Work/School Note: Work Release Form Date Seen in the Emergency Department: Oct 01, 2019 Return to Work: Oct 05, 2019 Restrictions: Need Release from Doctor Copy Copies To 1: KOBY KATHLEEN MD, TIMOTHY D MD Oct 01, 2019 13:19
[2019-10-01 13:38] LABS: AMORPHOUS SEDIMENT,UR FEW AMOR URATES /LPF; BACTERIA,URINE TRACE /HPF
[2019-10-01 14:50] VITALS: BP 126/75
== END 2019-10-01 14:50 | disposition home or self-care (01) ==
LOC: EDUNIT# 12:30 → ER 12:31
DX: O20.0 Threatened abortion (principal); Z3A.17 17 weeks gestation of pregnancy; Z88.8 Allergy status to other drugs, medicaments and biological substances; Z80.8 Family history of malignant neoplasm of other organs or systems; Z80.49 Family history of malignant neoplasm of other genital organs; Z82.49 Family history of ischemic heart disease and other diseases of the circulatory system
CPT/HCPCS: 81000; 87088

== ENCOUNTER 2020-01-20 16:39 | Outpatient (CLI) | payer OTHER ==
--- NOTE | 2020-01-20 16:50 | NUR ---
SUSAN HADDAD presented to unit via ambulation from ED, with c/o VAGINAL DISCHARGE. SUSAN HADDAD weighed, gowned, voided, and to bed. EFHM and TOCO applied, VS taken. SUSAN HADDAD oriented to bed controls, call light, TV, heat, and A/C controls.
--- NOTE | 2020-01-20 17:26 | NUR ---
Dr. Kathleen called and notified of pt arrival, , due 03/07 (33.2weeks) c/o yellow-green discharge with odor. Pt c/o pressure in the suprapubic region. Pt denies bleeding or leaking of fluid. Orders rec'd for wet prep, nitrazine, fern test, and UA and to check cervix.
[2020-01-20 17:30] VITALS: BP 115/66
--- NOTE | 2020-01-20 17:50 | NUR ---
Wet prep, nitrazine swab, and fern test collected at this time. Pt tolerates procedure well.
[2020-01-20 18:06] LABS: BILIRUBIN,URINE NEGATIVE (NEGATIVE); CLARITY,URINE SL CLOUDY; COLOR,URINE YELLOW; GLUCOSE, URINE (UA) NEGATIVE (NEGATIVE); KETONES,URINE NEGATIVE (NEGATIVE); LEUKOCYTE ESTERASE ,URINE TRACE (NEGATIVE); NITRITE,URINE NEGATIVE (NEGATIVE); PH,URINE 6.5 (5-9); PROTEIN,URINE NEGATIVE (NEGATIVE)
[2020-01-20 18:31] LABS: AMORPHOUS SEDIMENT,UR RARE AMOR URATES /LPF; BACTERIA,URINE TRACE /HPF; WBC,URINE 0-2 /HPF
--- NOTE | 2020-01-20 19:29 | NUR ---
Dr. Kathleen called and updated with lab results. Order rec'd for Vistaril 25mg x1 and to send pt home on Keflex 500mg BID x 5 days.
[2020-01-20] MEDS ORDERED: hydrOXYzine (VISTARIL/ATARAX) 25 MG capsule/tablet ONE (19:34)
[2020-01-20] MEDS ORDERED: hydrOXYzine (VISTARIL/ATARAX) 25 MG capsule/tablet PO ONE (19:45)
[2020-01-20] MEDS ORDERED: CEPHALEXIN 250 MG (KEFLEX) CAP PO NR (19:45)
[2020-01-20] MEDS ORDERED: CEPH250C PO (19:46)
--- NOTE | 2020-01-20 20:00 | NUR ---
Discharge instructions verbalized with pt. pt verbalized understanding. rn ambulated pt down stairs to awaiting vehicle. Pt will follow up in office.
--- NOTE | 2020-01-23 13:40 | Physician Query-Final Dx ---
Clinic Account Progress/Dx Physician Query: Please give diagnosis Please include # weeks gestation Date of Service Jan 20, 2020 at 16:39 MAKENZIE HOLGUIN Jan 23, 2020 13:40
== END 2020-01-20 20:00 | disposition home or self-care (01) ==
LOC: WSo 16:39 → LDRP 16:39 → WSo 20:00
PROVIDERS: ATTEND Family Medicine
DX: O99.89 Other specified diseases and conditions complicating pregnancy, childbirth and the puerperium (principal); N89.8 Other specified noninflammatory disorders of vagina; Z3A.33 33 weeks gestation of pregnancy
CPT/HCPCS: 81000; 87210; G0463; Q0114; 36415; 89060; 99214

== ENCOUNTER 2020-01-21 18:22 | Outpatient (CLI) | payer OTHER ==
[~2020-01-21] VITALS: Ht 152.4 cm; Wt 70.6 kg
[~2020-01-21 18:22] MED LIST changes: +CEPH250C PO
[2020-01-21 18:27] VITALS: BP 130/62
--- NOTE | 2020-01-21 18:27 | NUR ---
SUSAN HADDAD presented to unit from ED, accompanied by friend, with c/o CONTRACTIONS. SUSAN HADDAD weighed, gowned, voided, and to bed. EFHM and TOCO applied, VS taken. SUSAN HADDAD oriented to bed controls, call light, TV, heat, and A/C controls.
[2020-01-21 18:36] VITALS: BP 130/62
[2020-01-21 18:49] LABS: BILIRUBIN,URINE NEGATIVE (NEGATIVE); CLARITY,URINE CLEAR; COLOR,URINE YELLOW; GLUCOSE, URINE (UA) NEGATIVE (NEGATIVE); KETONES,URINE NEGATIVE (NEGATIVE); LEUKOCYTE ESTERASE ,URINE TRACE (NEGATIVE); NITRITE,URINE NEGATIVE (NEGATIVE); PROTEIN,URINE NEGATIVE (NEGATIVE)
[2020-01-21 18:55] LABS: AMORPHOUS SEDIMENT,UR FEW AMOR PHOSPHATE /LPF; BACTERIA,URINE TRACE /HPF; WBC,URINE 0-2 /HPF
--- NOTE | 2020-01-21 19:04 | NUR ---
Dr. Kathleen notified of patient's arrival, complaints, exam, and EFM tracing. New orders received.
--- NOTE | 2020-01-21 19:23 | NUR ---
Written discharge instructions reviewed with patient. Discharge instructions signed and copy given. Condition stable. No signs or symptoms of distress noted.
--- NOTE | 2020-01-23 13:43 | Physician Query-Final Dx ---
Clinic Account Progress/Dx Physician Query: Please give diagnosis Please include # weeks gestation Date of Service Jan 21, 2020 at 18:22 MAKENZIE HOLGUIN Jan 23, 2020 13:43
== END 2020-01-21 19:23 | disposition home or self-care (01) ==
LOC: WSo 18:22 → LDRP 18:22 → WSo 19:23
PROVIDERS: ATTEND Family Medicine
DX: O60.03 Preterm labor without delivery, third trimester (principal); Z3A.33 33 weeks gestation of pregnancy
CPT/HCPCS: 81000; G0463; 99213

== ENCOUNTER 2020-01-29 19:48 | Outpatient (CLI) | payer OTHER ==
[~2020-01-29] VITALS: Ht 160 cm; Wt 71.5 kg
--- NOTE | 2020-01-29 19:54 | NUR ---
SUSAN HADDAD presented to unit via WC from ED, accompanied by SO, with c/o LEAKING/CONTRACTIONS. SUSAN HADDAD weighed, gowned, voided, and to bed. EFHM and TOCO applied, VS taken. SUSAN HADDAD oriented to bed controls, call light, TV, heat, and A/C controls.
[2020-01-29 20:02] VITALS: BP 130/78
[2020-01-29 20:04] VITALS: BP 130/78
[2020-01-29 20:09] VITALS: BP 130/78
[2020-01-29 20:09] LABS: BILIRUBIN,URINE NEGATIVE (NEGATIVE); CLARITY,URINE CLOUDY; COLOR,URINE OTHER; GLUCOSE, URINE (UA) NEGATIVE (NEGATIVE); KETONES,URINE NEGATIVE (NEGATIVE); LEUKOCYTE ESTERASE ,URINE 2+ (NEGATIVE); NITRITE,URINE NEGATIVE (NEGATIVE); PROTEIN,URINE NEGATIVE (NEGATIVE)
[2020-01-29 20:25] LABS: BACTERIA,URINE TRACE /HPF; RBC,URINE 0-2 /HPF
[2020-01-29 20:26] LABS: AMORPHOUS SEDIMENT,UR FEW AMOR URATES /LPF
--- NOTE | 2020-01-29 20:35 | NUR ---
dr. dobbs called, new orders received, see interventions.
[2020-01-29] MEDS ORDERED: NITR-65 PO (20:39)
[2020-01-29 20:40] VITALS: BP 130/78
--- NOTE | 2020-01-29 20:40 | NUR ---
Discharge instructions read and reviewed with pt and , pt verbalized understanding and signed.
--- NOTE | 2020-01-29 20:42 | NUR ---
Pt off unit via WC.
[2020-01-29] MEDS ORDERED: NITROFURANTOIN 100 MG (MACROBID) CAPSULE PO ONE (20:45)
--- NOTE | 2020-01-30 08:49 | Physician Query-Final Dx ---
Clinic Account Progress/Dx Physician Query: Please give diagnosis Please include # weeks gestation Date of Service Jan 29, 2020 at 19:48 MAKENZIE HOLGUIN Jan 30, 2020 08:49
== END 2020-01-29 20:42 | disposition home or self-care (01) ==
LOC: WSo 19:48 → LDRP 19:48 → WSo 20:42
PROVIDERS: ATTEND Family Medicine
DX: Z34.93 Encounter for supervision of normal pregnancy, unspecified, third trimester (principal); Z3A.34 34 weeks gestation of pregnancy
CPT/HCPCS: 81000; 87088

== ENCOUNTER → 2020-02-02 | Outpatient (CLI) | payer OTHER ==
[~2020-02-02] MED LIST changes: +NIFE-25 PO; +PREN1TAB79 PO; +SERT50TA9 PO
[2020-02-02 11:18] LABS: BASOPHILS % (AUTO) 0 % (0-10); EOSINOPHILS # (AUTO) 0.2 10^3/uL (0.0-0.3); EOSINOPHILS % (AUTO) 1 % (0-10); HEMATOCRIT 32 % (35-52); HEMOGLOBIN 11.1 G/DL (11.5-16.0); LYMPHOCYTES # (AUTO) 1.8 X 10^3 (1.0-4.0); LYMPHOCYTES % (AUTO) 15 % (12-44); MEAN CORPUSCULAR HEMOGLOBIN 30 PG (25-34); MEAN CORPUSCULAR HGB CONC 35 G/DL (32-36); MEAN CORPUSCULAR VOLUME 86 FL (80-99); MEAN PLATELET VOLUME 8.7 FL (7.4-10.4); MONOCYTES # (AUTO) 0.9 X 10^3 (0.0-1.0); MONOCYTES % (AUTO) 7 % (0-12); NEUTROPHILS # (AUTO) 9.2 X 10^3 (1.8-7.8); NEUTROPHILS % (AUTO) 76 % (42-75); PLATELET COUNT 238 10^3/uL (130-400); RED CELL DISTRIBUTION WIDTH 12.3 % (10.0-14.5); WHITE BLOOD COUNT 12.1 10^3/uL (4.3-11.0)
[2020-02-02 11:43] LABS: ALBUMIN 3.3 GM/DL (3.2-4.5)
[2020-02-02 11:44] LABS: CHLORIDE 106 MMOL/L (98-107); POTASSIUM 3.2 MMOL/L (3.6-5.0); SODIUM 134 MMOL/L (135-145)
[2020-02-02 11:45] LABS: CALCIUM 8.2 MG/DL (8.5-10.1)
[2020-02-02 11:46] LABS: GLUCOSE 103 MG/DL (70-105); TOTAL PROTEIN 6.2 GM/DL (6.4-8.2)
[2020-02-02 11:47] LABS: CARBON DIOXIDE 21 MMOL/L (21-32)
[2020-02-02 11:48] LABS: BILIRUBIN,TOTAL 0.4 MG/DL (0.1-1.0)
[2020-02-02 11:49] LABS: ALKALINE PHOSPHATASE 85 U/L (40-136)
[2020-02-02 11:50] LABS: CREATININE SERUM 0.65 MG/DL (0.60-1.30); GFR ESTIMATED > 60
[2020-02-02 11:51] LABS: BUN/CREATININE RATIO 8
[2020-02-02 11:53] LABS: ALANINE AMINOTRANSFERASE 10 U/L (0-55); URIC ACID 3.2 MG/DL (2.6-7.2)
== END ==
LOC: LAB 11:06
PROVIDERS: ATTEND Family Medicine
DX: R51 Headache (principal); M79.89 Other specified soft tissue disorders
CPT/HCPCS: 36415; 80053; 83615; 84550; 85025

== ENCOUNTER 2020-02-04 08:35 | Outpatient (CLI) | payer OTHER ==
[~2020-02-04] VITALS: Ht 154 cm; Wt 70.7 kg
[~2020-02-04 08:35] MED LIST changes: -NIFE-25 PO; -PREN1TAB79 PO; -SERT50TA9 PO
--- NOTE | 2020-02-04 08:40 | NUR ---
SUSAN HADDAD presented to unit via amb from home, with c/o POSS WATER BREAK. SUSAN HADDAD weighed, gowned, voided, and to bed. EFHM and TOCO applied, VS taken. SUSAN HADDAD oriented to bed controls, call light, TV, heat, and A/C controls.
[2020-02-04 08:50] VITALS: BP 129/72
[2020-02-04 08:57] VITALS: BP 129/72
--- NOTE | 2020-02-04 08:57 | NUR ---
AMNIO SWAB NEGATIVE. SVE BY CANDY TREJO RN. 1.5-2 CM/40-50%/-2. APPEARS VERTEX.
[2020-02-04 09:00] VITALS: BP 129/72
--- NOTE | 2020-02-04 09:08 | NUR ---
MESSAGE LEFT FOR DR. ONOFRE TO RETURN CALL.
--- NOTE | 2020-02-04 09:11 | NUR ---
DR. ONOFRE RETURNED CALL AND REPORT GIVEN OF CERVICAL EXAM UNCHANGED FROM OFFICE, 1 CTX NOTED. PT CURRENTLY BEING TREATED FOR UTI. FHR 150 WITH MOD VARIABILITY. SOME UTERINE IRRITABILITY NOTED. ACTIVE FETUS. REACTIVE NST. +FM WITH + ACCELS. ORDER TO DISCHARGE WITH PRECAUTIONS.
--- NOTE | 2020-02-04 09:20 | NUR ---
EFM OFF. UP TO GET DRESSED.
[2020-02-04 09:33] VITALS: BP 129/72
[2020-02-04] MEDS ORDERED: NIFE-25 PO (09:33)
[2020-02-04] MEDS ORDERED: SERT50TA9 PO (09:33)
[2020-02-04] MEDS ORDERED: PREN1TAB79 PO (09:33)
[2020-02-04 09:40] VITALS: BP 129/72
--- NOTE | 2020-02-04 09:40 | NUR ---
DISCHARGE INSTRUCTIONS REVIEWED WITH COPY TO PT. STATES UNDERSTANDING OF ALL INSTRUCTIONS AND NEED TO F/U SCHEDULED AND NEEDED. DISMISSED AMB FROM WS IN STABLE CONDITION.
--- NOTE | 2020-02-06 08:28 | Physician Query-Final Dx ---
Clinic Account Progress/Dx Physician Query: Please give diagnosis Please include # weeks gestation Date of Service Feb 04, 2020 at 08:35 MAKENZIE HOLGUIN Feb 06, 2020 08:28
== END 2020-02-04 09:40 | disposition home or self-care (01) ==
LOC: WSo 08:35 → LDRP 08:35 → WSo 09:40
PROVIDERS: ATTEND Family Medicine
DX: O42.913 Preterm premature rupture of membranes, unspecified as to length of time between rupture and onset of labor, third trimester (principal); Z3A.35 35 weeks gestation of pregnancy
CPT/HCPCS: 99213

== ENCOUNTER 2020-02-13 18:15 | Outpatient (CLI) | payer OTHER ==
[~2020-02-13] VITALS: Ht 152.4 cm; Wt 71.8 kg
[~2020-02-13 18:15] MED LIST changes: +NIFE-25 PO; +PREN1TAB79 PO; +SERT50TA9 PO
--- NOTE | 2020-02-13 18:25 | NUR ---
SUSAN HADDAD presented to unit via AMBULATORY from ED, accompanied by S/O, with c/o CONTRACTIONS & PRESSURE. SUSAN HADDAD weighed, gowned, voided, and to bed. EFHM and TOCO applied, VS taken. SUSAN HADDAD oriented to bed controls, call light, TV, heat, and A/C controls.
[2020-02-13 18:43] LABS: BILIRUBIN,URINE NEGATIVE (NEGATIVE); CLARITY,URINE CLEAR; COLOR,URINE YELLOW; GLUCOSE, URINE (UA) NEGATIVE (NEGATIVE); KETONES,URINE NEGATIVE (NEGATIVE); LEUKOCYTE ESTERASE ,URINE 1+ (NEGATIVE); NITRITE,URINE NEGATIVE (NEGATIVE); PROTEIN,URINE NEGATIVE (NEGATIVE)
[2020-02-13 18:52] LABS: WBC,URINE 0-2 /HPF
[2020-02-13 18:53] LABS: BACTERIA,URINE TRACE /HPF
[2020-02-13 18:57] VITALS: BP 123/70
[2020-02-13] MEDS ORDERED: LORazepam 0.5 MG (ATIVAN) TABLET ONE (19:57)
[2020-02-13] MEDS ORDERED: LORazepam 0.5 MG (ATIVAN) TABLET PO NR (20:00)
[2020-02-13] MEDS ORDERED: hydrOXYzine (VISTARIL/ATARAX) 25 MG capsule/tablet ONE (20:00)
[2020-02-13] MEDS ORDERED: hydrOXYzine (VISTARIL/ATARAX) 25 MG capsule/tablet PO NR (20:00)
[2020-02-13 20:04] VITALS: BP 118/66
[2020-02-13] MEDS ORDERED: ACETAMINOPHEN 500 MG TAB (TYLENOL) PO PRN (21:45)
[2020-02-14 02:15] VITALS: BP 105/50
--- NOTE | 2020-02-14 10:15 | NUR ---
REFER TO LABOR FLOW SHEET.
--- NOTE | 2020-02-14 10:36 | Short Stay Summary ---
History of Present Illness History of Present Illness Reason for visit/HPI 24 yo @ 37.1 wga here for contractions and chest pain. Patient states that she has been having 5-6 contractions per hour that are stronger then they had previously been. She has been getting anxious and then having chest pains. When she is not having anxiety she denies any chest pain. No shortness of breath or LE pain or swelling. Patient previously has had deliveries. Date of Admission 02/13/2020 Date of Discharge 02/14/2020 Time Seen by Provider: 08:45 Attending Physician Koby Kathleen MD Admitting Physician Koby Kathleen MD Consult Allergies and Home Medications Allergies Coded Allergies: phenytoin (Unverified Allergy, Severe, ANAPHYLAXIS, 01/29/20) promethazine (Unverified Allergy, Intermediate, 01/29/20) Home Medications Nifedipine 30 Mg Tab.er.24, 30 MG PO DAILY, (Reported) Vit W-Ca,Fe,FA(<1 mg) 1 Each Tablet, 1 EACH PO DAILY, (Reported) Sertraline HCl 50 Mg Tablet, 50 MG PO HS, (Reported) Patient Home Medication List Home Medication List Reviewed: Yes Past Uzwznxa-Nzxowa-Yteqjz Hx Patient Social History Alcohol Use: Denies Use Recreational Drug Use: No Smoking Status: Never a Smoker 2nd Hand Smoke Exposure: No Recent Foreign Travel: No Contact w/other who traveled: No Recent Hopitalizations: No Immunizations Up To Date Tetanus Booster (TDap): Less than 5yrs Seasonal Allergies Seasonal Allergies: No Surgeries Yes Adenoidectomy, Gallbladder, Tonsillectomy Respiratory No Cardiovascular Yes Palpitations Neurological Yes (HX SEIZURES as child) Reproductive System Expected Date of Delivery: Mar 07, 2020 Hx : 4 Hx Para: 2 Hx Total # of Abortions (Spona: 1 Hx Reproductive Disorders: No Sexually Transmitted Disease: No HIV/AIDS: No Genitourinary No Gastrointestinal Yes Gall Bladder Disease Musculoskeletal No Endocrine History of Endocrine Disorders: No HEENT History of HEENT Disorders: No Cancer No Psychosocial History of Psychiatric Problem: Yes Behavioral Health Disorders: ADD/ADHD, Anxiety, Depression Integumentary History of Skin or Integumenta: No Blood Transfusions History of Blood Disorders: No Family Medical History Family Hx: Cervical cancer G8 SISTER Congenital heart disease G8 BROTHER G8 BROTHER FH: depression 19 MOTHER FH: thyroid cancer G8 SISTER Hypercholesterolemia 19 MOTHER Hypertension 19 FATHER Seizure disorder G8 BROTHER G8 BROTHER Thyroid disease 19 MOTHER Review of Systems Constitutional: no symptoms reported; No chills, No fever EENTM: no symptoms reported; No mouth pain, No nose congestion Respiratory: no symptoms reported; No cough, No dyspnea on exertion, No short of breath Cardiovascular: chest pain; No edema, No palpitations Gastrointestinal: abdominal pain, constipation; No diarrhea, No nausea, No vomiting Genitourinary: no symptoms reported; No dysuria, No frequency, No hematuria : Yes Musculoskeletal: no symptoms reported; No back pain, No joint pain, No muscle pain Skin: no symptoms reported; No lesions, No rash Psychiatric/Neurological: Anxiety; Denies Depressed Physical Exam Vital Signs Vital Signs - First Documented 02/13/20 02/13/20 18:57 20:04 Temp 36.4 Pulse 73 Resp 18 B/P (MAP) 118/66 (83) Pulse Ox 99 O2 Delivery Room Air Capillary Refill : Less Than 3 Seconds Height, Weight, BMI Height: 5'0.00" Weight: 153lbs. 0.0oz. 69.234274lc; 30.91 BMI Method:Stated General Appearance: No Apparent Distress, WD/WN HEENT: PERRL/EOMI Neck: Full Range of Motion, Normal Inspection, Non Tender, Supple Respiratory: Chest Non Tender, Lungs Clear, Normal Breath Sounds, No Accessory Muscle Use, No Respiratory Distress Cardiovascular: Regular Rate, Rhythm, No Edema, No Murmur, Normal Peripheral Pulses Gastrointestinal: Normal Bowel Sounds, Soft Back: No CVA Tenderness, No Vertebral Tenderness Extremity: Normal Range of Motion, Non Tender, No Calf Tenderness, Swelling (trace) Neurologic/Psychiatric: Alert, Oriented x3, No Motor/Sensory Deficits, Normal Mood/Affect, 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 Skin: Normal Color, Warm/Dry Lymphatic: No Adenopathy Short Stay Diagnosis Discharge Diagnosis-Short Stay Admission Diagnosis: Contractions Abdominal pain Third Trimester 37 week gestation Final Discharge Diagnosis: See Above Conclusion Labs Laboratory Tests 02/13/20 18:30: Urine Color YELLOW, Urine Clarity CLEAR, Urine pH 7.0, Urine Specific [place] 1.010L, Urine Protein NEGATIVE, Urine Glucose (UA) NEGATIVE, Urine Ketones NEGATIVE, Urine Nitrite NEGATIVE, Urine Bilirubin NEGATIVE, Urine Urobilinogen 0.2, Urine Leukocyte Esterase 1+H, Urine RBC (Auto) NEGATIVE, Urine RBC NONE, Urine WBC 0-2, Urine Squamous Epithelial Cells 2-5, Urine Crystals NONE, Urine Bacteria TRACE, Urine Casts NONE, Urine Mucus NEGATIVE, Urine Culture Indicated NO Conclusion/Plan 24 yo @ 37.1 here for contractions and chest pain Contractions resolved with Vistaril and PO fluilds, patient had one variable deceleration and was monitored overnight without any reoccurrence, Will have BPP/NST outpatient Anxiety: Chest pain resolved after 1 dose of ativan and she was able to get sleep Previous delivery KOBY KATHLEEN MD Feb 14, 2020 10:36
--- NOTE | 2020-02-14 10:39 | Discharge Summary ---
Discharge [facility] Reconcile Patient Problems Problems Reviewed?: Yes Discharge Medications New, Converted or Re-Newed RX: Other Continued Medications: Nifedipine (Nifedipine ER) 30 Mg Tab.er.24 30 MG PO DAILY, TAB Vit W-Ca,Fe,FA(<1 mg) ( Vitamins) 1 Each Tablet 1 EACH PO DAILY, TAB Sertraline HCl (Sertraline HCl) 50 Mg Tablet 50 MG PO HS, TAB Patient Instructions Goal/Follow Up Appt: F/u on with Frannie and BPP/NST at 11AM Activity & Diet Discharge Diet: No Restrictions Activity as Tolerated: No (Bed Rest) KOBY RODGERS MD Feb 14, 2020 10:39
--- NOTE | 2020-02-14 10:51 | NUR ---
DISCHARGE PAPERS PROVIDED AND REVIEWED WITH PT, PT VERBALIZES UNDERSTANDING AND DENIES ANY QUESTIONS AT THIS TIME. PAPER SIGNED.
--- NOTE | 2020-02-14 10:55 | NUR ---
PT DISCHARGED FROM -[facility] TO [facility] VIA AMBULATORY IN STABLE CONDITION. BELONGINGS IN HAND.
== END 2020-02-14 10:55 | disposition home or self-care (01) ==
LOC: WSo 18:15 → LDRP 18:16 → WSo 02-14 10:55
PROVIDERS: ATTEND Family Medicine
DX: O62.9 Abnormality of forces of labor, unspecified (principal); O26.893 Other specified pregnancy related conditions, third trimester; R10.9 Unspecified abdominal pain; Z3A.37 37 weeks gestation of pregnancy
CPT/HCPCS: 81000

== ENCOUNTER 2020-02-15 12:58 | Outpatient (CLI) | payer OTHER ==
--- NOTE | 2020-02-15 13:03 | NUR ---
SUSAN HADDAD presented to unit via ambulation from ED with c/o contractions x2 days and loosing mucous plug. Pt. weighed, gowned, voided, and to bed. EFHM and TOCO applied, VS taken. Pt. oriented to bed controls, call light, TV, heat, and A/C controls.
--- NOTE | 2020-02-15 13:29 | NUR ---
SVE 1.5-2cm, thick, ballotable. small amount dark red discharge on glove. report ctx't x2 days every 3-5 mins. loosing mucous plug this a.m.
[2020-02-15 13:30] VITALS: BP 117/68
[2020-02-15 13:32] LABS: BILIRUBIN,URINE NEGATIVE (NEGATIVE); CLARITY,URINE CLEAR; COLOR,URINE YELLOW; GLUCOSE, URINE (UA) NEGATIVE (NEGATIVE); KETONES,URINE NEGATIVE (NEGATIVE); LEUKOCYTE ESTERASE ,URINE 2+ (NEGATIVE); NITRITE,URINE NEGATIVE (NEGATIVE); PROTEIN,URINE NEGATIVE (NEGATIVE)
[2020-02-15 13:39] LABS: AMORPHOUS SEDIMENT,UR RARE AMOR PHOSPHATE /LPF; BACTERIA,URINE FEW /HPF; RBC,URINE RARE /HPF
--- NOTE | 2020-02-15 13:58 | NUR ---
was called with admitting c/o's. reviewed monitor tracing, SVE and UA results. new orders received for IM Rocephin, monitor x30 mins, december d/c if no active labor.
[2020-02-15] MEDS ORDERED: cefTRIAXone 1,000 MG/2.86 ml vial (IM ONLY) IM SCH (14:00)
[2020-02-15] MEDS ORDERED: LIDOCAINE 1% INJ 20 ML 20 ML VIAL INJ SCH (14:00)
--- NOTE | 2020-02-15 14:28 | NUR ---
monitors dc'd. POC reviewed, states understanding.
--- NOTE | 2020-02-15 14:30 | NUR ---
Rocephin 1gm IM given in Rt.GM. dismissal instructions given, verbalizes understanding. reviewed sx's to RTC. instructed pt to follow up as scheduled. signature page signed, placed on chart. pt ambulated to private vehicle with no sx's of distress noted.
--- NOTE | 2020-02-16 08:34 | Physician Query-Final Dx ---
MAKENZIE HOLGUIN 02/16/20 0834: Clinic Account Progress/Dx Physician Query: Please give diagnosis Please include # weeks gestation Date of Service Feb 15, 2020 at 12:58 KOBY RODGERS MD 02/17/20 1543: Clinic Account Progress/Dx DIAGNOSIS: Diagnosis abdominal pain in third trimester 37 week gestation MAKENZIE HOLGUIN Feb 16, 2020 08:34 KOBY RODGERS MD Feb 17, 2020 15:43
== END 2020-02-15 14:30 | disposition home or self-care (01) ==
LOC: WSo 12:58 → LDRP 12:59 → WSo 14:30
PROVIDERS: ATTEND Family Medicine
DX: O62.9 Abnormality of forces of labor, unspecified (principal); Z3A.37 37 weeks gestation of pregnancy
CPT/HCPCS: 81000; 87088; 96372; 99213

== ENCOUNTER 2020-02-15 20:31 | Inpatient (IN) | payer OTHER ==
[~2020-02-15] VITALS: Ht 152.4 cm; Wt 71.8 kg
[2020-02-15] MEDS ORDERED: D5 LR IV SOLUTION 1,000 ML IV ONE ×2 (20:34→21:05)
[2020-02-15] MEDS ORDERED: MISOPROSTOL 100 MCG (CYTOTEC) TAB ONE (20:34)
--- NOTE | 2020-02-15 20:35 | NUR ---
SUSAN HADDAD presented to unit via w'c from ED, accompanied by , with c/o WATER BROKE 37wks . SUSAN HADDAD weighed, gowned, voided, and to bed. EFHM and TOCO applied, VS taken. SUSAN HADDAD oriented to bed controls, call light, TV, heat, and A/C controls.
[2020-02-15 20:46] VITALS: BP 135/78
[2020-02-15 20:53] VITALS: BP 135/78
[2020-02-15 21:26] LABS: BASOPHILS % (AUTO) 0 % (0-10); EOSINOPHILS # (AUTO) 0.2 10^3/uL (0.0-0.3); EOSINOPHILS % (AUTO) 2 % (0-10); HEMATOCRIT 29 % (35-52); LYMPHOCYTES # (AUTO) 1.7 X 10^3 (1.0-4.0); LYMPHOCYTES % (AUTO) 13 % (12-44); MEAN CORPUSCULAR HEMOGLOBIN 29 PG (25-34); MEAN CORPUSCULAR HGB CONC 35 G/DL (32-36); MEAN CORPUSCULAR VOLUME 85 FL (80-99); MEAN PLATELET VOLUME 9.3 FL (7.4-10.4); MONOCYTES # (AUTO) 1.1 X 10^3 (0.0-1.0); MONOCYTES % (AUTO) 8 % (0-12); NEUTROPHILS # (AUTO) 10.1 X 10^3 (1.8-7.8); NEUTROPHILS % (AUTO) 77 % (42-75); PLATELET COUNT 225 10^3/uL (130-400); RED CELL DISTRIBUTION WIDTH 12.3 % (10.0-14.5)
[2020-02-15] MEDS ORDERED: MINERAL OIL CONCENTRATE 99.9% 15 ML UDC TOP PRN (21:30)
[2020-02-15] MEDS: D5 LR IV SOLUTION 1,000 ML IV SCH (21:34)
[2020-02-15 22:00] VITALS: BP 120/59
[2020-02-15 22:30] VITALS: BP 121/72
[2020-02-15 23:00] VITALS: BP 114/54
[2020-02-15 23:30] VITALS: BP 103/55
[2020-02-16] VITALS (53 sets, daily range): BP systolic 94–143; BP diastolic 50–84
[2020-02-16] MEDS: D5 LR IV SOLUTION 1,000 ML IV SCH (05:00)
[2020-02-16] MEDS ORDERED: OXYTOCIN PRE-MIX DRIP 500 ML IV SCH ×2 (05:10→13:48)
[2020-02-16] MEDS ORDERED: fentaNYL 2 mcg/ml BUPIVA 0.125 100 ML ONE (07:43)
--- NOTE | 2020-02-16 08:03 | NUR ---
anesthesia notified of pt's request for epidural placement.
[2020-02-16] MEDS ORDERED: fentaNYL INJECTION 100 MCG/2 ML AMP ONE (08:14)
[2020-02-16] MEDS ORDERED: BUPIVACAINE 0.25% 30 ML (SENSORCAINE) VIAL ONE (08:14)
[2020-02-16] MEDS ORDERED: fentaNYL 2 mcg/ml BUPIVA 0.125 100 ML IV SCH (10:20)
[2020-02-16] MEDS ORDERED: LACTATED RINGERS 1,000 ML IV ONE (10:20)
[2020-02-16] MEDS ORDERED: EPIDURAL (fentaNYL 2 MCG/ML BUPIVA 0.125%)100 ML BAG EPI SCH (10:30)
[2020-02-16] MEDS ORDERED: NALOXONE 0.4 MG/ML 1 ML (NARCAN) VIAL IV PRN (10:30)
[2020-02-16] MEDS ORDERED: diphenhydrAMINE 50 MG/ML INJ (BENADRYL) IV PRN (10:30)
[2020-02-16] MEDS ORDERED: CATHETER FLUSH 10 ML SYR IV PRN (10:30)
[2020-02-16] MEDS ORDERED: ONDANSETRON 4 MG/2 ML (SDV) Z0FRAN IV PRN (10:30)
--- NOTE | 2020-02-16 11:24 | History & Physical-OB ---
OB - Chief Complaint & HPI Date/Time Date of Admission: Date of Admission: Feb 15, 2020 at 21:21 Date seen by a Provider: Feb 16, 2020 Time Seen by a Provider: 09:20 Chief Complaint/History OB-Reason for Admission/Chief: Rupture of Membranes Hx : 3 Hx Para: 2 Expected Date of Delivery: Mar 07, 2020 Gestational Age in Weeks: 37 Gestational Age in Days: 1 History of Labs A neg, Ab neg Rub Imm HIV/HepB/RPR NR GC/Chyl neg Normal 1hr GTT GBS neg Allergies and Home Medications Allergies Coded Allergies: phenytoin (Unverified Allergy, Severe, ANAPHYLAXIS, 01/29/20) promethazine (Unverified Allergy, Intermediate, 01/29/20) Home Medications Nifedipine 30 Mg Tab.er.24, 30 MG PO DAILY, (Reported) Vit W-Ca,Fe,FA(<1 mg) 1 Each Tablet, 1 EACH PO DAILY, (Reported) Sertraline HCl 50 Mg Tablet, 50 MG PO HS, (Reported) Patient Home Medication List Home Medication List Reviewed: Yes OB - History Hx of Present Care: Yes Ultrasounds: Normal mid trimester US Obstetrical Complications: None Medical Complications: None Information Induced Hypertension: No Maternal Gestational Diabetes: No Hemorrhage: No Obstetrical History Hx : 3 Hx Para: 2 Hx # Pregnancies: 2 Number of Living Children: 2 Hx Total # of Abortions (Spona: 0 Delivery History Hx Blood Disorders: No Patient Past Medical History hx of epilepsy currently untreated hx of heart murmur hx of GDM/pre-diabetes Depression/Anxiety PSH: T&A gallbladder Social History/Family History HIV/AIDS: No Recent Infectious Disease Expo: No Sexually Transmitted Disease: No Alcohol Use: Denies Use Recreational Drug Use: No 2nd Hand Smoke Exposure: No Immunizations Hepatitis A: No Hepatitis B: No Tetanus Booster (TDap): Less than 5yrs Rubella: immune RPR/VDRL: Negative GBS Status: Negative HBsAG: Negative OB - Admission Exam Physical Exam Vitals: Vital Signs 02/15/20 02/16/20 02/16/20 20:53 10:30 11:00 Temp 36.7 Pulse 58 Resp 18 B/P (MAP) 110/62 (78) Pulse Ox 99 O2 Delivery Room Air HEENT: NCAT Heart: Rhythm Normal Lungs: Clear Abdomen: Gravid Cervical Dilatation: 4cm Effacement: 50% Station: -1 Membranes: Ruptured Amniotic Fluid: Clear Heart Rate: 140's Accelerations: Accelerations Present Decelerations: No Decelerations Short Term Variability: Present Contractions on Admission: 6-10 Minutes Apart Intensity: Moderate Labs Laboratory Tests Test 02/15/20 21:15 Range/Units White Blood Count 13.0 H 4.3-11.0 10^3/uL Red Blood Count 3.42 L 4.35-5.85 10^6/uL Hemoglobin 10.0 L 11.5-16.0 G/DL Hematocrit 29 L 35-52 % Mean Corpuscular Volume 85 80-99 FL Mean Corpuscular Hemoglobin 29 25-34 PG Mean Corpuscular Hemoglobin Concent 35 32-36 G/DL Red Cell Distribution Width 12.3 10.0-14.5 % Platelet Count 225 130-400 10^3/uL Mean Platelet Volume 9.3 7.4-10.4 FL Neutrophils (%) (Auto) 77 H 42-75 % Lymphocytes (%) (Auto) 13 12-44 % Monocytes (%) (Auto) 8 0-12 % Eosinophils (%) (Auto) 2 0-10 % Basophils (%) (Auto) 0 0-10 % Neutrophils # (Auto) 10.1 H 1.8-7.8 X 10^3 Lymphocytes # (Auto) 1.7 1.0-4.0 X 10^3 Monocytes # (Auto) 1.1 H 0.0-1.0 X 10^3 Eosinophils # (Auto) 0.2 0.0-0.3 10^3/uL Basophils # (Auto) 0.0 0.0-0.1 10^3/uL OB - Assessment/Plan/Diagnosis Assessment Assessment: active labor Admission Dx AROM 37 week gestation Third Trimester Admission Status: Inpatient Order (span 2 midnights) Reason for Inpatient Admission: Labor Plan Plan: Expectant Management Other Plan 24 yo @37.1 here after SROM at home Plan - Augment labor with Pitocin - GBS Neg - Epidural for pain control KOBY RODGERS MD Feb 16, 2020 11:24
[2020-02-16] MEDS ORDERED: MISOPROSTOL 200 MCG (CYTOTEC) TABLET ONE (13:25)
--- NOTE | 2020-02-16 13:47 | OB Labor & Delivery Record ---
Vag Delivery Note Vag Delivery Note Date of Delivery: 02/16/20 Preoperative Diagnosis: Isreal Segovia is a (24 /Para 3 / 2,Gestational Age (wks)37.1with here for labor after SROM at home Postoperative Diagnosis: Same Surgeon: KOBY RODGERS Chemistry Tutor: None Anesthesia: Epidural Delivery Type: @ 1320 Findings: Viable Female , apgars 6/9, weight 6#2, 2780 grams Lacerations: None Intact placenta with 3 vessel cord. No nuchal cord, body cord or shoulder dystocia Cytotec 800 mcg placed for hemorrhage prophylaxis Estimated Blood Loss: 250 ml Complications: None Condition: Stable Description of Procedure: The patient is a 24 year old female who presented in Active labor after SROM. She was admitted and informed consent was obtained. Her labor course was unremarkable. She progressed to complete dilatation and began to push. She was then set up for delivery. The infant's head was delivered atraumatically in the MARISOL position. The shoulders and remainder of the infant's body were then delivered without difficulty. Upon delivery, the head was held below the level o f the perineum and the mouth and nares were bulb suctioned. The cord was doubly clamped and cut by FOB and the was placed on maternal abdomen and attended to by pediatric nurse. An intact placenta with 3-vessel cord delivered via Jaylon and there was found to be minimal bleeding.~ Vigorous fundal massage was performed and the fundus was found to be firm. IV oxytocin was given. Examination of the vagina and perineum revealed no lacerations. Following the repair, sponge, instrument and needle counts were correct. Mom and baby were both in stable condition in the labor suite. Vitals - Labs Vital Signs - I&O Vital Signs Date Time Temp Pulse Resp B/P (MAP) Pulse Ox O2 Delivery O2 Flow Rate FiO2 02/16/20 11:45 66 18 127/70 (89) 99 Room Air 02/16/20 11:30 70 18 137/66 (89) Room Air 02/16/20 11:15 70 18 137/66 (89) Room Air 02/16/20 11:00 58 18 110/62 (78) Room Air 02/16/20 10:45 61 18 124/67 (86) Room Air 02/16/20 10:30 36.7 64 18 126/66 (86) Room Air 02/16/20 10:15 62 18 108/55 (72) Room Air 02/16/20 10:00 69 18 109/59 (76) Room Air 02/16/20 09:45 60 18 106/59 (75) Room Air 02/16/20 09:30 64 18 117/61 (79) Room Air 02/16/20 09:15 79 18 134/80 (98) Room Air 02/16/20 09:10 62 18 110/59 (76) Room Air 02/16/20 09:05 56 18 104/55 (71) Room Air 02/16/20 09:00 66 18 107/59 (75) Room Air 02/16/20 08:55 69 18 126/58 (80) Room Air 02/16/20 08:50 73 18 115/62 (79) Room Air 02/16/20 08:45 66 18 118/64 (82) Room Air 02/16/20 08:40 81 18 127/71 (89) Room Air 02/16/20 08:35 73 18 115/62 (79) Room Air 02/16/20 08:30 72 18 117/65 (82) Room Air 02/16/20 08:23 72 18 116/60 (78) Room Air 02/16/20 08:20 76 18 114/61 (78) Room Air 02/16/20 08:05 72 18 118/57 (77) Room Air 02/16/20 07:50 36.6 75 18 118/67 (84) Room Air 02/16/20 07:30 75 18 107/61 (76) Room Air 02/16/20 07:00 70 18 114/63 (80) Room Air 02/16/20 06:30 75 18 110/58 (75) Room Air 02/16/20 06:00 75 18 111/58 (75) Room Air 02/16/20 05:30 36.5 77 18 128/72 (90) Room Air 02/16/20 05:00 66 18 104/59 (74) Room Air 02/16/20 04:30 69 18 94/50 (65) Room Air 02/16/20 04:00 75 18 107/57 (74) Room Air 02/16/20 03:30 79 18 118/66 (83) Room Air 02/16/20 03:00 77 18 107/59 (75) Room Air 02/16/20 02:30 73 18 117/62 (80) Room Air 02/16/20 02:00 75 18 122/58 (79) Room Air 02/16/20 01:30 69 18 116/63 (80) Room Air 02/16/20 01:00 69 18 118/62 (80) Room Air 02/16/20 00:30 68 18 120/72 (88) Room Air 02/16/20 00:00 36.9 79 18 126/58 (80) Room Air 02/15/20 23:30 68 18 103/55 (71) Room Air 02/15/20 23:00 73 18 114/54 (74) Room Air 02/15/20 22:30 73 18 121/72 (88) Room Air 02/15/20 22:00 84 18 120/59 (79) Room Air 02/15/20 20:53 36.9 92 18 99 Room Air 02/15/20 20:46 36.9 92 18 99 Room Air Labs Laboratory Tests 02/15/20 21:15: White Blood Count 13.0H, Red Blood Count 3.42L, Hemoglobin 10.0L, Hematocrit 29L , Mean Corpuscular Volume 85, Mean Corpuscular Hemoglobin 29, Mean Corpuscular Hemoglobin Concent 35, Red Cell Distribution Width 12.3, Platelet Count 225, Mean Platelet Volume 9.3, Neutrophils (%) (Auto) 77H, Lymphocytes (%) (Auto) 13, Monocytes (%) (Auto) 8, Eosinophils (%) (Auto) 2, Basophils (%) (Auto) 0, Neutrophils # (Auto) 10.1H, Lymphocytes # (Auto) 1.7, Monocytes # (Auto) 1.1H, Eosinophils # (Auto) 0.2, Basophils # (Auto) 0.0 KOBY RODGERS MD Feb 16, 2020 13:47
[2020-02-16] MEDS ORDERED: BENZOCAINE/MENTHOL (DERMOPLAST) 60 ML CAN TP PRN (14:00)
[2020-02-16] MEDS ORDERED: TETANUS,DIPTH,PERTUSS P/F (BOOSTRIX) 0.5 ML VIAL IM ONE (14:00)
[2020-02-16] MEDS ORDERED: MEASLES,MUMPS,RUBELLA 1 EA INJ SQ ONE (14:00)
[2020-02-16] MEDS ORDERED: WITCH HAZEL(TUCKS) 40 EA JAR TOP PRN (14:00)
[2020-02-16] MEDS: IBUPROFEN 600 MG (MOTRIN) TAB PO SCH ×2 (14:29→20:30)
--- NOTE | 2020-02-16 15:30 | NUR ---
Ffu/1. lt rubra noted, no clots expressed. up to BR. +void. adriel-care instructions given, returned demonstration. v-pad and panties in place.
--- NOTE | 2020-02-16 15:40 | NUR ---
pt transferred to room 309 via w/c with this RN, and s/o @ side. familiarized with room supplies. call light within reach.
--- NOTE | 2020-02-16 19:09 | NUR ---
report given to ABDELRAHMAN Villa.
[2020-02-16] MEDS: CATHETER FLUSH 10 ML SYR IV SCH ×2 (19:28→20:30)
[2020-02-16] MEDS: DOCUSATE SODIUM 100 MG (COLACE) CAP PO SCH (20:30)
[2020-02-17] MEDS: IBUPROFEN 600 MG (MOTRIN) TAB PO SCH ×4 (02:24→21:44)
[2020-02-17 04:00] VITALS: BP 107/69
[2020-02-17 05:38] LABS: BASOPHILS % (AUTO) 0 % (0-10); EOSINOPHILS # (AUTO) 0.3 10^3/uL (0.0-0.3); EOSINOPHILS % (AUTO) 3 % (0-10); HEMATOCRIT 26 % (35-52); HEMOGLOBIN 8.9 G/DL (11.5-16.0); LYMPHOCYTES # (AUTO) 1.9 X 10^3 (1.0-4.0); LYMPHOCYTES % (AUTO) 19 % (12-44); MEAN CORPUSCULAR HEMOGLOBIN 29 PG (25-34); MEAN CORPUSCULAR HGB CONC 34 G/DL (32-36); MEAN CORPUSCULAR VOLUME 86 FL (80-99); MEAN PLATELET VOLUME 9.4 FL (7.4-10.4); MONOCYTES # (AUTO) 0.8 X 10^3 (0.0-1.0); MONOCYTES % (AUTO) 8 % (0-12); NEUTROPHILS % (AUTO) 70 % (42-75); PLATELET COUNT 183 10^3/uL (130-400); RED CELL DISTRIBUTION WIDTH 12.2 % (10.0-14.5)
[2020-02-17 08:49] VITALS: BP 118/69
[2020-02-17] MEDS: FERROUS SULF 325 MG (IRON) TAB PO SCH (08:51)
[2020-02-17] MEDS: DOCUSATE SODIUM 100 MG (COLACE) CAP PO SCH ×2 (08:51→21:44)
--- NOTE | 2020-02-17 09:15 | NUR ---
Dr Kathleen here to see pt. Continue with current plan of care
--- NOTE | 2020-02-17 10:51 | Anesthesia-Regional Post-Op ---
Regional Patient Condition Mental Status: Alert, Oriented x3 Circulation: Same as Pre-Op Headache: Absent Sensation: Full Recovery Motor Block: Absent Post Op Complications Complications None Follow Up Care/Instructions Patient Instructions None needed. Anesthesia/Patient Condition Patient is doing well, no complaints, stable vital signs, no apparent adverse anesthesia problems. No complications reported per nursing. FILIPPO BRYANT CRNA Feb 17, 2020 10:51
--- NOTE | 2020-02-17 11:42 | Postpartum Progress Note ---
Note Note Day # 1 Subjective: Patient is without complaints. Ambulating, voiding. Tolerating a regular diet without nausea or vomiting. Normal lochia. Pain is well controlled with oral pain medications. Breast feeding well. Objective: Physical Exam: General - Alert and oriented, no apparent distress Abdomen - Soft, appropriately tender to palpation, non-distended, fundus firm at umbilicus Extremities - no edema, negative Cameron's bilaterally Assessment: 24 yo G3 now P3 post- day # 1, status post spontaneous vaginal delivery. Recovering well, hemodynamically stable Post Anemia RH neg with RH pos infant Plan: Routine care. Encourage breast feeding. Encourage ambulation. Ferrous sulfate supplementation. Need Rhogam prior to d/c Plan for discharge tomorrow with 6 week f.u with [facility] Vitals - Labs Vital Signs - I&O Vital Signs Date Time Temp Pulse Resp B/P (MAP) Pulse Ox O2 Delivery O2 Flow Rate FiO2 02/17/20 08:49 37.2 77 16 118/69 (85) 98 Room Air 02/17/20 04:00 36.6 63 18 107/69 (82) 97 Room Air 02/16/20 23:23 36.8 72 16 122/62 (82) 98 Room Air 02/16/20 19:54 37.0 58 16 115/74 (88) 99 Room Air 02/16/20 18:54 36.6 68 18 108/66 (80) 98 Room Air 02/16/20 14:45 79 18 120/72 (88) Room Air 02/16/20 14:30 69 18 129/60 (83) Room Air 02/16/20 14:15 66 18 122/75 (91) Room Air 02/16/20 13:30 83 18 143/84 (103) Room Air 02/16/20 13:15 74 18 126/77 (93) Room Air 02/16/20 13:00 59 18 113/69 (84) Room Air 02/16/20 12:45 36.5 50 18 107/61 (76) Room Air 02/16/20 12:30 56 18 99/54 (69) Room Air 02/16/20 12:15 60 18 115/57 (76) Room Air 02/16/20 12:00 63 18 114/64 (81) Room Air 7/9/20 11:45 66 18 127/70 (89) 99 Room Air I & O 02/17/20 07:00 Intake Total 1000 ml Balance 1000 ml Labs Laboratory Tests 02/17/20 05:09: White Blood Count 10.0, Red Blood Count 3.04L, Hemoglobin 8.9L, Hematocrit 26L, Mean Corpuscular Volume 86, Mean Corpuscular Hemoglobin 29, Mean Corpuscular Hemoglobin Concent 34, Red Cell Distribution Width 12.2, Platelet Count 183, Mean Platelet Volume 9.4, Neutrophils (%) (Auto) 70, Lymphocytes (%) (Auto) 19, Monocytes (%) (Auto) 8, Eosinophils (%) (Auto) 3, Basophils (%) (Auto) 0, Neutrophils # (Auto) 7.0, Lymphocytes # (Auto) 1.9, Monocytes # (Auto) 0.8, Eosinophils # (Auto) 0.3, Basophils # (Auto) 0.0 KOBY RODGERS MD Feb 17, 2020 11:42
[2020-02-17 12:20] VITALS: BP 122/74
[2020-02-17 15:47] VITALS: BP 131/73
[2020-02-17] MEDS ORDERED: ACETAMINOPHEN 500 MG TAB (TYLENOL) ONE (18:35)
[2020-02-17] MEDS ORDERED: ACETAMINOPHEN 500 MG TAB (TYLENOL) PO PRN (18:45)
[2020-02-17 20:30] VITALS: BP 107/70
[2020-02-18] MEDS: IBUPROFEN 600 MG (MOTRIN) TAB PO SCH ×2 (03:16→09:30)
[2020-02-18 03:26] VITALS: BP 110/55
[2020-02-18 08:41] VITALS: BP 131/70
--- NOTE | 2020-02-18 08:53 | Discharge Summary ---
Diagnosis/Chief Complaint Date of Admission Feb 15, 2020 at 21:21 Date of Discharge Discharge Summary-Simple/Stand Discharge Physical Examination Allergies: Coded Allergies: phenytoin (Unverified Allergy, Severe, ANAPHYLAXIS, 01/29/20) promethazine (Unverified Allergy, Intermediate, 01/29/20) Vitals & I&Os Vital Sign - Last 12Hours Date Time Temp Pulse Resp B/P (MAP) Pulse Ox O2 Delivery O2 Flow Rate FiO2 02/18/20 08:41 36.2 70 18 131/70 (90) Room Air 02/17/20 20:30 97 Hospital Course See final discharge diagnosis. Discharge Instructions to patient/family Please see electronic discharge instructions given to patient. Discharge Medications Reviewed and agree with Discharge Medication list on patient's Discharge Instruction sheet Clinical Quality Measures DVT/VTE Risk/Contraindication: Risk Factor Score Per Nursin RFS Level Per Nursing on Admit: 1=Low/No VTE PPX KOBY RODGERS MD Feb 18, 2020 08:52
[2020-02-18] MEDS ORDERED: FERR325T18 PO (08:54)
[2020-02-18] MEDS ORDERED: IBUP-844 PO (08:54)
--- NOTE | 2020-02-18 08:55 | Discharge Summary ---
Discharge [facility] Reconcile Patient Problems Problems Reviewed?: Yes Discharge Medications New, Converted or Re-Newed RX: Transmitted to Pharmacy New Medications: Ferrous Sulfate (Ferrous Sulfate) 325 Mg Tablet 325 MG PO DAILY@0800, #30 TAB Ibuprofen (Ibu) 600 Mg Tablet 600 MG PO Q6H, #90 TAB Continued Medications: Vit W-Ca,Fe,FA(<1 mg) ( Vitamins) 1 Each Tablet 1 EACH PO DAILY, TAB Sertraline HCl (Sertraline HCl) 50 Mg Tablet 50 MG PO HS, TAB Discontinued Medications: Nifedipine (Nifedipine ER) 30 Mg Tab.er.24 30 MG PO DAILY, TAB Patient Instructions Goal/Follow Up Appt: 6 week f.u with Frannie Activity & Diet Discharge Diet: No Restrictions Activity as Tolerated: Yes Copy Copies To 1: KOBY RODGERS MD, HOLLY R MD Feb 18, 2020 08:55
[2020-02-18] MEDS: FERROUS SULF 325 MG (IRON) TAB PO SCH (09:30)
[2020-02-18] MEDS: DOCUSATE SODIUM 100 MG (COLACE) CAP PO SCH (09:31)
[2020-02-18 12:05] VITALS: BP 131/70
== END 2020-02-18 10:25 | disposition home or self-care (01) | DRG 806 ==
LOC: WSo 20:31 → LDRP 20:32 → WSo 21:20 → LDRP 21:21
PROVIDERS: ADMIT Family Medicine; ATTEND Family Medicine
PROC: 10E0XZZ Delivery of Products of Conception, External Approach (ICD-10-PCS; principal; 2020-02-16)
DX: O80 Encounter for full-term uncomplicated delivery (principal); D62 Acute posthemorrhagic anemia; Z37.0 Single live birth; Z3A.37 37 weeks gestation of pregnancy; O99.03 Anemia complicating the puerperium
CPT/HCPCS: 36415; 83033; 85025; 86850; 86900; 86901; 99212

== ENCOUNTER 2020-06-27 16:56 | Emergency (ER) | payer OTHER, MEDICAID ==
[~2020-06-27] VITALS: Ht 152.4 cm; Wt 66.2 kg
[~2020-06-27 16:56] MED LIST changes: +FERR325T18 PO; +IBUP-844 PO; -OXYC-465 PO; +OXYC-556 PO
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
[2020-06-27 19:00] VITALS: BP 119/70
== END 2020-06-27 19:00 | disposition home or self-care (01) ==
LOC: EDUNIT# 16:56 → ER 16:57
DX: S80.02XA Contusion of left knee, initial encounter (principal); F41.9 Anxiety disorder, unspecified; F32.9 Major depressive disorder, single episode, unspecified; Z82.49 Family history of ischemic heart disease and other diseases of the circulatory system; Z80.49 Family history of malignant neoplasm of other genital organs; Z88.8 Allergy status to other drugs, medicaments and biological substances; V49.9XXA Car occupant (driver) (passenger) injured in unspecified traffic accident, initial encounter
CPT/HCPCS: 72070; 72100